=== PATIENT | male | born 1940 | race Caucasian/White ===

== ENCOUNTER 2017-02-05 08:38 | Inpatient (IN) | payer MEDICARE, SELFPAY ==
[2017-02-05] MEDS ORDERED: PIPERACILLIN-TAZOBACTAM 3.375 GM in DEXTROSE/WATER 1 50ML.BAG IVPB STA (09:05)
[2017-02-05 09:06] LABS: Basophils # (A) 0.1 k/uL (0-0.2); Basophils % (A) 1 %; CH 32.1; CHCM 35.2; Eosinophils # (A) 0.1 k/uL (0-0.7); Eosinophils % (A) 1 %; HCT 47.8 % (39.0-53.0); HDW 2.75; HGB 16.3 gm/dL (13.0-17.5); Luc # (Auto) 0.07; Luc % (Auto) 1; Lymphocytes # (A) 0.5 k/uL (1.0-4.8); Lymphocytes % (A) 5 %; MCH 31.1 pg (25.0-35.0); MCHC 34.1 g/dL (31.0-37.0); MCV 91.4 fL (80.0-100.0); Mean Platelet Volume 8.4; Monocytes # (A) 0.3 k/uL (0-1.0); Monocytes % (A) 3 %; Neutrophils # (A) 9.5 k/uL (1.3-7.7); Neutrophils % (A) 90 %; RBC 5.23 m/uL (4.30-5.90); WBC 10.6 k/uL (3.8-10.6); WBC (Perox) 10.69
[2017-02-05] MEDS ORDERED: SODIUM CHLORIDE 0.9% 1,000 ML IV ONE (09:06)
[2017-02-05] MEDS: ACETAMINOPHEN TAB 500 MG TAB PO STA ×2 (09:14→09:16)
[2017-02-05 09:19] LABS: ALT 26 U/L (21-72); AST 32 U/L (17-59); Alkaline Phosphatase 117 U/L (38-126); Anion Gap 18 mmol/L; Blood Urea Nitrogen 18 mg/dL (9-20); Calcium 9.2 mg/dL (8.4-10.2); Carbon Dioxide 19 mmol/L (22-30); Chloride 99 mmol/L (98-107); Glucose 300 mg/dL (74-99); INR 2.6 (<1.1); Non-African American GFR(MDRD) >60 (>60 ml/min/1.73 sqM); Potassium 3.9 mmol/L (3.5-5.1); Prothrombin Time 25.1 sec (9.0-12.0); Sodium 136 mmol/L (137-145); Total Bilirubin 1.3 mg/dL (0.2-1.3); Total Protein 7.3 g/dL (6.3-8.2)
[2017-02-05 09:20] LABS: Partial Thromboplastin Time 28.5 sec (22.0-30.0)
--- NOTE | 2017-02-05 09:38 | ED ---
Fever HPI - General Chief Complaint: Fever Stated Complaint: Fever Time Seen by Provider: 02/05/17 08:44 Source: patient, EMS Mode of arrival: EMS Limitations: no limitations - History of Present Illness Initial Comments: 76 years old male presented with a fever and shakes to bed feeling vertigo last night he woke up this morning and he couldn't stop shaking his whole body was shaking and he had a fever. His Family Member Had the Same Sort of Symptoms. Days Ago Her Cough Relief or and Shakes. He Denies Any Headache No Neck Stiffness No Chest Pain He Has Been Coughing No Significant Amount of Sputum No Abdominal Pain No Frequency Urgency Dysuria She Does Speak Quite a Bit No Symptoms of TIA or CVA - Related Data Home Medications Medication Instructions Recorded Confirmed Atenolol [Tenormin] 50 mg PO DAILY 02/05/17 02/05/17 Lisinopril [Zestril] 5 mg PO HS 02/05/17 02/05/17 Lisinopril-Hctz 20-12.5 mg 1 tab PO DAILY 02/05/17 02/05/17 [Zestoretic 20-12.5] Warfarin Sodium [Coumadin] 5 mg PO HS 02/05/17 02/05/17 metFORMIN HCL 1,000 mg PO BID 02/05/17 02/05/17 Previous Rx's Medication Instructions Recorded Ciprofloxacin HCl [Cipro] 500 mg PO Q12HR #22 tablet 02/08/17 glipiZIDE [Glucotrol] 10 mg PO AC-BID #60 tablet 02/08/17 Allergies Allergy/AdvReac Type Severity Reaction Status Date / Time No Known Allergies Allergy Verified 02/05/17 10:10 Review of Systems ROS Statement: Those systems with pertinent positive or pertinent negative responses have been documented in the HPI. ROS Other: All systems not noted in ROS Statement are negative. Past Medical History Past Medical History: Atrial Fibrillation, Diabetes Mellitus, Hypertension History of Any Multi-Drug Resistant Organisms: None Reported Past Surgical History: Appendectomy Past Psychological History: No Psychological Hx Reported Smoking Status: Never smoker Past Alcohol Use History: None Reported Past Drug Use History: None Reported - Past Family History Mother Family Medical History: Cancer Additional Family Medical History / Comment(s): Mother had metastatic cancer. She at the age of 57yrs. Father Family Medical History: Myocardial Infarction ([place]) Additional Family Medical History / Comment(s): Father at the age of 63yrs of a [place]. General Exam - General Exam Comments Initial Comments: General: The patient is awake and alert, in no distress, and does not appear acutely ill. His temp is no 101.5 Skin: Skin is warm and dry and no rashes or lesions are noted. Eye: Pupils are equal, round and reactive to light, extra-ocular movements are intact; there is normal conjunctiva bilaterally. Ears, nose, mouth and throat: There are moist mucous membranes and no oral lesions. Neck: The neck is supple, there is no tenderness no signs of meningeal irritation Cardiovascular: There is a regular rate and rhythm. No murmur, rub or gallop is appreciated. Respiratory: To auscultation bilateral, no wheezing no rhonchi no distress respiratory marie noticed Gastrointestinal: Soft, non-distended, non-tender abdomen without masses or organomegaly noted. There is no rebound or guarding present. Bowel sounds are unremarkable. Back: There is no tenderness to palpation in the midline. There is no obvious deformity. Musculoskeletal: Normal ROM, no tenderness, There is no pedal edema. There is no calf tenderness or swelling. No cords were appreciated. Neurological: CN II-XII intact, Cranial nerves III through XII are intact. There are no obvious motor or sensory deficits. Coordination appears grossly intact. Speech is normal. Psychiatric: Cooperative, appropriate mood & affect, normal judgment. Limitations: no limitations Course Vital Signs 02/05/17 02/05/17 02/05/17 08:43 08:52 09:05 Temperature 101.5 F H 101.5 F H Pulse Rate 95 Pulse Rate [ 95 96 Pulse Oximetery ] Respiratory 18 18 18 Rate Blood Pressure 154/87 Blood Pressure 154/87 150/77 [Right Arm] O2 Sat by Pulse 92 L 92 L 93 L Oximetry 02/05/17 02/05/17 02/05/17 09:20 09:30 09:45 Temperature 98.5 F Pulse Rate 90 88 Pulse Rate [ 90 Pulse Oximetery ] Respiratory 18 18 18 Rate Blood Pressure 131/64 141/64 Blood Pressure 135/67 [Right Arm] O2 Sat by Pulse 94 L 95 95 Oximetry 02/05/17 02/05/17 02/05/17 10:00 10:15 10:30 Temperature 98.5 F 98.6 F 99.8 F H Pulse Rate 87 84 88 Pulse Rate [ Pulse Oximetery ] Respiratory 18 18 18 Rate Blood Pressure 129/58 136/66 134/63 Blood Pressure [Right Arm] O2 Sat by Pulse 95 96 95 Oximetry 02/05/17 02/05/17 02/05/17 11:00 11:15 11:30 Temperature 99.2 F 100.5 F H 100.6 F H Pulse Rate 84 80 71 Pulse Rate [ Pulse Oximetery ] Respiratory 20 18 18 Rate Blood Pressure 137/68 130/80 128/62 Blood Pressure [Right Arm] O2 Sat by Pulse 95 95 95 Oximetry 02/05/17 02/05/17 02/05/17 11:45 12:00 12:15 Temperature 100.5 F H 99 F 99 F Pulse Rate 71 86 84 Pulse Rate [ 82 Pulse Oximetery ] Respiratory 18 18 18 Rate Blood Pressure 129/64 142/58 128/79 Blood Pressure 133/70 [Right Arm] O2 Sat by Pulse 95 95 95 Oximetry 02/05/17 02/05/17 02/05/17 12:30 12:45 13:04 Temperature 99 F 99 F 99.1 F Pulse Rate 85 82 72 Pulse Rate [ Pulse Oximetery ] Respiratory 18 18 18 Rate Blood Pressure 139/67 144/56 141/64 Blood Pressure [Right Arm] O2 Sat by Pulse 96 96 96 Oximetry 02/05/17 13:15 Temperature 97.8 F Pulse Rate Pulse Rate [ 73 Pulse Oximetery ] Respiratory 16 Rate Blood Pressure Blood Pressure 121/70 [Right Arm] O2 Sat by Pulse 95 Oximetry Him EKG is atrial fibrillation, ventricular rate is 99 CT interval, QRS duration is 1 or 2 QT/QTC 362/464 EKG was compared with the old EKG EKG noticed some ST depression in lead 1 and also there is a hint of firm ST elevation in lead 3 notice S2 depression in aVL as well noticed some ST depression in lead V4 V5 and V6 - Reevaluation(s) Reevaluation #2: 02/05/17 10:09 Patient's lactate is 6.2 had a fever and right wrist after 1.5 L of fluid he looks better here it is some consistent with a cystitis and probably early urosepsis patient was given antibiotics right away when now will be seen him clinically he looks better and secondary to his urosepsis his sugar was high and bicarb is bit low with the fluids and antibiotics hopefully that also being corrected, spoke with the Dr. Hemphill he is agreeable to resume his care as inpatient and will allow per minute selective at this point Medical Decision Making - Lab Data Result diagrams: 02/08/17 05:47 02/08/17 05:47 Lab Results 02/05/17 02/05/17 02/05/17 Range/Units 08:50 08:50 08:50 WBC 10.6 (3.8-10.6) k/uL RBC 5.23 (4.30-5.90) m/uL Hgb 16.3 (13.0-17.5) gm/dL Hct 47.8 (39.0-53.0) % MCV 91.4 (80.0-100.0) fL MCH 31.1 (25.0-35.0) pg MCHC 34.1 (31.0-37.0) g/dL RDW 14.0 (11.5-15.5) % Plt Count 168 (150-450) k/uL Neutrophils % 90 % Lymphocytes % 5 % Monocytes % 3 % Eosinophils % 1 % Basophils % 1 % Neutrophils # 9.5 H (1.3-7.7) k/uL Lymphocytes # 0.5 L (1.0-4.8) k/uL Monocytes # 0.3 (0-1.0) k/uL Eosinophils # 0.1 (0-0.7) k/uL Basophils # 0.1 (0-0.2) k/uL PT (9.0-12.0) sec INR (<1.1) APTT (22.0-30.0) sec Sodium 136 L (137-145) mmol/L Potassium 3.9 (3.5-5.1) mmol/L Chloride 99 (98-107) mmol/L Carbon Dioxide 19 L (22-30) mmol/L Anion Gap 18 mmol/L BUN 18 (9-20) mg/dL Creatinine 0.70 (0.66-1.25) mg/dL Est GFR (MDRD) Af Amer >60 (>60 ml/min/1.73 sqM) Est GFR (MDRD) Non-Af >60 (>60 ml/min/1.73 sqM) Glucose 300 H (74-99) mg/dL Estimated Ave Glu mg/dL mg/dL Hemoglobin A1c (4.2-6.1) % Plasma Lactic Acid Giovanny 6.2 H* (0.7-2.0) mmol/L Calcium 9.2 (8.4-10.2) mg/dL Total Bilirubin 1.3 (0.2-1.3) mg/dL AST 32 (17-59) U/L ALT 26 (21-72) U/L Alkaline Phosphatase 117 (38-126) U/L Troponin I (0.000-0.034) ng/mL Total Protein 7.3 (6.3-8.2) g/dL Albumin 4.0 (3.5-5.0) g/dL Urine Color Urine Appearance (Clear) Urine pH (5.0-8.0) Ur Specific Sullivan (1.001-1.035) Urine Protein (Negative) Urine Glucose (UA) (Negative) Urine Ketones (Negative) Urine Blood (Negative) Urine Nitrite (Negative) Urine Bilirubin (Negative) Urine Urobilinogen (<2.0) mg/dL Ur Leukocyte Esterase (Negative) Urine RBC (0-5) /hpf Urine WBC (0-5) /hpf Urine WBC Clumps (None) /hpf Ur Squamous Epith Cells (0-4) /hpf Urine Bacteria (None) /hpf Urine Mucus (None) /hpf Acetone, Qual (Negative) Influenza Type A RNA (Not Detectd) Influenza Type B (PCR) (Not Detectd) 02/05/17 02/05/17 02/05/17 Range/Units 08:50 08:50 08:50 WBC (3.8-10.6) k/uL RBC (4.30-5.90) m/uL Hgb (13.0-17.5) gm/dL Hct (39.0-53.0) % MCV (80.0-100.0) fL MCH (25.0-35.0) pg MCHC (31.0-37.0) g/dL RDW (11.5-15.5) % Plt Count (150-450) k/uL Neutrophils % % Lymphocytes % % Monocytes % % Eosinophils % % Basophils % % Neutrophils # (1.3-7.7) k/uL Lymphocytes # (1.0-4.8) k/uL Monocytes # (0-1.0) k/uL Eosinophils # (0-0.7) k/uL Basophils # (0-0.2) k/uL PT 25.1 H (9.0-12.0) sec INR 2.6 (<1.1) APTT 28.5 (22.0-30.0) sec Sodium (137-145) mmol/L Potassium (3.5-5.1) mmol/L Chloride (98-107) mmol/L Carbon Dioxide (22-30) mmol/L Anion Gap mmol/L BUN (9-20) mg/dL Creatinine (0.66-1.25) mg/dL Est GFR (MDRD) Af Amer (>60 ml/min/1.73 sqM) Est GFR (MDRD) Non-Af (>60 ml/min/1.73 sqM) Glucose (74-99) mg/dL Estimated Ave Glu mg/dL 192 mg/dL Hemoglobin A1c 8.3 H (4.2-6.1) % Plasma Lactic Acid Giovanny (0.7-2.0) mmol/L Calcium (8.4-10.2) mg/dL Total Bilirubin (0.2-1.3) mg/dL AST (17-59) U/L ALT (21-72) U/L Alkaline Phosphatase (38-126) U/L Troponin I (0.000-0.034) ng/mL Total Protein (6.3-8.2) g/dL Albumin (3.5-5.0) g/dL Urine Color Urine Appearance (Clear) Urine pH (5.0-8.0) Ur Specific Sullivan (1.001-1.035) Urine Protein (Negative) Urine Glucose (UA) (Negative) Urine Ketones (Negative) Urine Blood (Negative) Urine Nitrite (Negative) Urine Bilirubin (Negative) Urine Urobilinogen (<2.0) mg/dL Ur Leukocyte Esterase (Negative) Urine RBC (0-5) /hpf Urine WBC (0-5) /hpf Urine WBC Clumps (None) /hpf Ur Squamous Epith Cells (0-4) /hpf Urine Bacteria (None) /hpf Urine Mucus (None) /hpf Acetone, Qual Negative (Negative) Influenza Type A RNA (Not Detectd) Influenza Type B (PCR) (Not Detectd) 02/05/17 02/05/17 02/05/17 Range/Units 09:15 09:15 09:16 WBC (3.8-10.6) k/uL RBC (4.30-5.90) m/uL Hgb (13.0-17.5) gm/dL Hct (39.0-53.0) % MCV (80.0-100.0) fL MCH (25.0-35.0) pg MCHC (31.0-37.0) g/dL RDW (11.5-15.5) % Plt Count (150-450) k/uL Neutrophils % % Lymphocytes % % Monocytes % % Eosinophils % % Basophils % % Neutrophils # (1.3-7.7) k/uL Lymphocytes # (1.0-4.8) k/uL Monocytes # (0-1.0) k/uL Eosinophils # (0-0.7) k/uL Basophils # (0-0.2) k/uL PT (9.0-12.0) sec INR (<1.1) APTT (22.0-30.0) sec Sodium (137-145) mmol/L Potassium (3.5-5.1) mmol/L Chloride (98-107) mmol/L Carbon Dioxide (22-30) mmol/L Anion Gap mmol/L BUN (9-20) mg/dL Creatinine (0.66-1.25) mg/dL Est GFR (MDRD) Af Amer (>60 ml/min/1.73 sqM) Est GFR (MDRD) Non-Af (>60 ml/min/1.73 sqM) Glucose (74-99) mg/dL Estimated Ave Glu mg/dL mg/dL Hemoglobin A1c (4.2-6.1) % Plasma Lactic Acid Giovanny (0.7-2.0) mmol/L Calcium (8.4-10.2) mg/dL Total Bilirubin (0.2-1.3) mg/dL AST (17-59) U/L ALT (21-72) U/L Alkaline Phosphatase (38-126) U/L Troponin I 0.031 (0.000-0.034) ng/mL Total Protein (6.3-8.2) g/dL Albumin (3.5-5.0) g/dL Urine Color Yellow Urine Appearance Turbid (Clear) Urine pH 5.5 (5.0-8.0) Ur Specific Sullivan 1.015 (1.001-1.035) Urine Protein 2+ H (Negative) Urine Glucose (UA) 4+ H (Negative) Urine Ketones 1+ H (Negative) Urine Blood Moderate H (Negative) Urine Nitrite Positive (Negative) Urine Bilirubin Negative (Negative) Urine Urobilinogen <2.0 (<2.0) mg/dL Ur Leukocyte Esterase Large H (Negative) Urine RBC 68 H (0-5) /hpf Urine WBC >182 H (0-5) /hpf Urine WBC Clumps Moderate H (None) /hpf Ur Squamous Epith Cells 2 (0-4) /hpf Urine Bacteria Many H (None) /hpf Urine Mucus Occasional H (None) /hpf Acetone, Qual (Negative) Influenza Type A RNA Not Detected (Not Detectd) Influenza Type B (PCR) Not Detected (Not Detectd) Critical Care Time Total Critical Care Time: 45 Critical Care Time: Patient's labs are reviewed CBC is normal INR flu a and flu BR unremarkable chest x-ray shows some cardiomegaly his blood sugar is 300 and his bicarb is 19 they mean he has a metabolic acidosis and has a lactate is 6.2 considering that he was started on now Zosyn 3.375 g IV and he was also resuscitated with normal saline also noticed some EKG changes and he has history of atrial fibrillation considering all the CABG he would need admission get hold of Dr. Hemphill O Dr. Brooks site and a considering his lactate he will need to go to a selective at least for ICU Disposition Clinical Impression: Fever, History of atrial fibrillation, Hyperglycemia, Metabolic acidosis, Cystitis Disposition: ADMITTED IP TO THIS HOSP Condition: Stable
--- NOTE | 2017-02-05 09:38 | XR ---
EXAMINATION TYPE: XR chest 2V DATE OF EXAM: 02/05/2017 9:35 AM HISTORY: Pain. REFERENCE: Previous study dated 07/27/2010. FINDINGS: The lungs are overinflated. The heart is mildly enlarged. There is a calcified granuloma in the right midlung. There are senescent changes throughout the lungs. IMPRESSION: 1. COPD. 2. CARDIOMEGALY. 3. 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
[2017-02-05 09:39] LABS: Appearance,Urine Turbid (Clear); Bacteria,Urine Many /hpf; Bilirubin,Urine Negative (Negative); Glucose,Urine (UA) 4+ (Negative); Ketones,Urine 1+ (Negative); Leukocyte Esterase,Urine Large (Negative); Mucus,Urine Occasional /hpf; Nitrite,Urine Positive (Negative); PH, Urine 5.5 (5.0-8.0); Particle Count 62762; Protein,Urine 2+ (Negative); RBC,Urine 68 /hpf (0-5); Specific Gravity,Urine 1.015 (1.001-1.035); Squamous Epithelial Cell,Urine 2 /hpf (0-4); UA Billing (MACRO vs. MICRO) MICRO; Urobilinogen,Urine <2.0 mg/dL (<2.0); WBC,Urine >182 /hpf (0-5)
[2017-02-05] MEDS ORDERED: INSULIN REGULAR 100 UNIT/ML VIAL SQ ONE (09:40)
[2017-02-05] MEDS ORDERED: SODIUM CHLORIDE 0.9% 1,000 ML IV STA (09:42)
[2017-02-05] MEDS ORDERED: NALOXONE 0.4 MG/ML 1 ML VIAL IV PRN (10:10)
[2017-02-05] MEDS ORDERED: ACETAMINOPHEN TAB 325 MG TAB PO PRN (10:10)
[2017-02-05] MEDS: SODIUM CHLORIDE 0.9% 1,000 ML IV SCH ×2 (10:57→21:15)
[2017-02-05 11:08] LABS: Glucose,Whole Blood 272 mg/dL (75-99)
[2017-02-05] MEDS ORDERED: IBUPROFEN 600 MG TAB PO STA (11:33)
[2017-02-05] MEDS: INSULIN LISPRO (humaLOG) 300 UNIT/3 ML VIAL SQ SCH ×3 (13:47→21:18)
--- NOTE | 2017-02-05 13:53 | P.HPIM ---
History of Present Illness H&P Date: 02/05/17 Chief Complaint: Burning with urination and fever This is a 76-year-old male with a known history of atrial fibrillation, diabetes mellitus and hypertension. Patient presents to the emergency room with complaints of chills and shakes. He had noted to have burning with urination that started through the night and into the morning. He had hematuria and urinary frequency. Patient reports about 6 weeks ago he also was treated outpatient for urinary tract infection. Patient had a temp of 101.5 on admission did receive IV fluids and started on IV Zosyn in the emergency room. Lactic acid level was elevated at 6.2 white count 10.6. Patient is being treated for UTI with sepsis. Blood cultures are pending. He also had elevated blood sugar of 300. I did receive insulin in the emergency room. We'll continue to monitor sliding scale has been ordered. Also acetone level. Patient denies any back pain, chest pain or shortness of breath, nausea or vomiting or bowel movement changes. Review of Systems Please refer to HPI otherwise unremarkable Past Medical History Past Medical History: Atrial Fibrillation, Heart Failure, Diabetes Mellitus, Hypertension Additional Past Medical History / Comment(s): NIDDM type II, arthritis L knee and hands. Patient did have a previous infection in the left knee did require treatment with IV antibiotics in 2007 after orthopedic procedure History of Any Multi-Drug Resistant Organisms: None Reported Past Surgical History: Appendectomy, Orthopedic Surgery Additional Past Surgical History / Comment(s): 2009 RUSSEL/cardioversion, colonoscopy, L knee arthroscopy. Past Anesthesia/Blood Transfusion Reactions: No Reported Reaction Past Psychological History: No Psychological Hx Reported Additional Psychological History / Comment(s): Pt resides with his girlfriend. He uses no assistive device. He drives. Smoking Status: Never smoker Past Alcohol Use History: None Reported Additional Past Alcohol Use History / Comment(s): Pt chewed tobacco for about 7- 8 yrs. He quit in 1989 Past Drug Use History: None Reported - Past Family History Mother Family Medical History: Cancer Additional Family Medical History / Comment(s): Mother had metastatic cancer. She at the age of 57yrs. Father Family Medical History: Myocardial Infarction ([place]) Additional Family Medical History / Comment(s): Father at the age of 63yrs of a [place]. Medications and Allergies Home Medications Medication Instructions Recorded Confirmed Type Atenolol [Tenormin] 50 mg PO DAILY 02/05/17 02/05/17 History Lisinopril [Zestril] 5 mg PO HS 02/05/17 02/05/17 History Lisinopril-Hctz 20-12.5 mg 1 tab PO DAILY 02/05/17 02/05/17 History [Zestoretic 20-12.5] Warfarin Sodium [Coumadin] 5 mg PO HS 02/05/17 02/05/17 History glipiZIDE [Glucotrol] 5 mg PO AC-BRKFST 02/05/17 02/05/17 History glipiZIDE [Glucotrol] 10 mg PO AC-SUPPER 02/05/17 02/05/17 History metFORMIN HCL 1,000 mg PO BID 02/05/17 02/05/17 History Allergies Allergy/AdvReac Type Severity Reaction Status Date / Time No Known Allergies Allergy Verified 02/05/17 10:10 Physical Exam Vitals: Vital Signs Temp Pulse Pulse Resp BP BP Pulse Ox 02/05/17 13:04 99.1 F 72 18 141/64 96 02/05/17 12:45 99 F 82 18 144/56 96 02/05/17 12:30 99 F 85 18 139/67 96 02/05/17 12:15 99 F 84 18 128/79 95 02/05/17 12:00 99 F 86 82 18 142/58 133/70 95 02/05/17 11:45 100.5 F H 71 18 129/64 95 02/05/17 11:30 100.6 F H 71 18 128/62 95 02/05/17 11:15 100.5 F H 80 18 130/80 95 02/05/17 11:00 99.2 F 84 20 137/68 95 02/05/17 10:30 99.8 F H 88 18 134/63 95 02/05/17 10:15 98.6 F 84 18 136/66 96 Head normocephalic Neck supple Lungs clear to auscultation bilaterally no wheezing or crackles Heart irregular A. fib on monitor Abdomen is soft nontender nondistended positive bowel sounds no hepatosplenomegaly. No CVA tenderness Extremities no edema Neuro alert and orientated to 3 Results CBC & Chem 7: 02/05/17 08:50 02/05/17 08:50 Labs: Abnormal Lab Results - Last 24 Hours (Table) 02/05/17 02/05/17 Range/Units 11:07 12:10 POC Glucose (mg/dL) 272 H (75-99) mg/dL Plasma Lactic Acid Giovanny 4.6 H* (0.7-2.0) mmol/L Thrombosis Risk Factor Assmnt - Choose All That Apply Any of the Below Risk Factors Present?: Yes Each Factor Represents 1 point: Obesity (BMI >25) Other Risk Factors: Yes Each Risk Factor Represents 3 Points: Age 75 years or older Other congenital or acquired thrombophilia - If yes, enter type in comment: No Thrombosis Risk Factor Assessment Total Risk Factor Score: 4 Thrombosis Risk Factor Assessment Level: Moderate Risk Assessment and Plan Plan: 1. UTI with sepsis present on admission: Patient started on IV Zosyn. Urine culture and blood culture pending. Had a fever of 101.5 and a lactic acid level of 6.2 on admission. Continue with IV fluid hydration. Consult infectious disease 2. Diabetes mellitus type 2 with hyperglycemia: Blood sugar 300 on admission. CO2 level 19. Positive ketones in the urine. We'll check acetone level. Add sliding scale coverage. Discontinue metformin. Continue with glipizide. Check hemoglobin A1c 3. Metabolic acidosis: CO2 of 19. Repeat labs in a.m. Continue treatment of sepsis. 4. History of chronic atrial fibrillation: EKG shows atrial fibrillation with controlled rate and nonspecific S and T-wave abnormality. Continue atenolol and Coumadin. INR therapeutic at 2.6. Cardiology consulted 5. Essential hypertension: Continue lisinopril, hydrochlorothiazide and atenolol GI prophylaxis Protonix and DVT prophylaxis maintained on Coumadin with therapeutic INR Time with Patient: Greater than 30 (Greater than 50% of the total time spent in counseling and coordination of care.I performed an examination of the patient and discussed their management with the physician Blood Donor Recruiter. I have reviewed the Physician Blood Donor Recruiter's notes and agree with the documented findings and plan of care)
[2017-02-05 14:07] LABS: Hemoglobin A1C 8.3 % (4.2-6.1)
[2017-02-05 14:13] LABS: Glucose,Whole Blood 298 mg/dL (75-99)
[2017-02-05] MEDS: PIPERACILLIN-TAZOBACTAM 3.375 GM in DEXTROSE/WATER 1 50ML.BAG IVPB SCH ×2 (15:54→23:00)
[2017-02-05 16:25] LABS: Glucose,Whole Blood 223 mg/dL (75-99)
[2017-02-05] MEDS ORDERED: INSULIN LISPRO (humaLOG) 300 UNIT/3 ML VIAL SQ SCH (17:30)
[2017-02-05] MEDS: glipiZIDE 10 MG TAB PO SCH (17:31)
[2017-02-05] MEDS ORDERED: NON-FORMULARY DRUG (Metformin Hcl [Metformin Hcl] 1,000 MG) PO SCH (21:00)
[2017-02-05 21:01] LABS: Glucose,Whole Blood 202 mg/dL (75-99)
[2017-02-05] MEDS: LISINOPRIL 5 MG TAB PO SCH (21:19)
[2017-02-05] MEDS: WARFARIN 5 MG TAB PO SCH (21:19)
[2017-02-06 06:13] LABS: Basophils # (A) 0.1 k/uL (0-0.2); Basophils % (A) 1 %; CH 32.2; CHCM 35.1; Eosinophils % (A) 0 %; HCT 40.7 % (39.0-53.0); HDW 2.72; Luc # (Auto) 0.29; Luc % (Auto) 5; Lymphocytes % (A) 15 %; MCH 31.7 pg (25.0-35.0); MCHC 34.4 g/dL (31.0-37.0); MCV 92.2 fL (80.0-100.0); Monocytes # (A) 0.4 k/uL (0-1.0); Monocytes % (A) 6 %; Neutrophils # (A) 4.8 k/uL (1.3-7.7); Neutrophils % (A) 74 %; RBC 4.41 m/uL (4.30-5.90); RDW 14.1 % (11.5-15.5); WBC 6.4 k/uL (3.8-10.6)
[2017-02-06] MEDS: SODIUM CHLORIDE 0.9% 1,000 ML IV SCH ×2 (06:13→16:22)
[2017-02-06 06:17] LABS: INR 1.9 (<1.1); Prothrombin Time 18.3 sec (9.0-12.0)
[2017-02-06 06:23] LABS: Glucose,Whole Blood 236 mg/dL (75-99)
[2017-02-06 06:31] LABS: ALT 39 U/L (21-72); AST 41 U/L (17-59); Alkaline Phosphatase 58 U/L (38-126); Anion Gap 7 mmol/L; Blood Urea Nitrogen 15 mg/dL (9-20); Calcium 8.5 mg/dL (8.4-10.2); Carbon Dioxide 26 mmol/L (22-30); Chloride 100 mmol/L (98-107); Glucose 237 mg/dL (74-99); Non-African American GFR(MDRD) >60 (>60 ml/min/1.73 sqM); Potassium 3.5 mmol/L (3.5-5.1); Sodium 133 mmol/L (137-145); Total Bilirubin 1.6 mg/dL (0.2-1.3); Total Protein 5.6 g/dL (6.3-8.2)
[2017-02-06] MEDS: LISINOPRIL-HCTZ 20-12.5 MG 1 EACH TAB PO SCH (08:26)
[2017-02-06] MEDS: ATENOLOL 50 MG TAB PO SCH (08:26)
[2017-02-06] MEDS: PIPERACILLIN-TAZOBACTAM 3.375 GM in DEXTROSE/WATER 1 50ML.BAG IVPB SCH ×3 (08:26→23:20)
[2017-02-06 08:48] LABS: Glucose,Whole Blood 245 mg/dL (75-99)
--- NOTE | 2017-02-06 08:49 | US ---
EXAMINATION TYPE: US abd limited kidneys/bladder DATE OF EXAM: 02/06/2017 8:01 AM COMPARISON: NONE CLINICAL HISTORY: recurrent UTI. Patient states no pain or discomfort. Fever yesterday. EXAM MEASUREMENTS: Liver Length: 20.7 cm Gallbladder Wall: 0.2 cm CHD: 0.4 cm Right Kidney: 12.1 x 6.5 x 7.0 cm Left Kidney: 13.7 x 6.0 x 6.5 cm Pancreas: Obscured by bowel gas Liver: Increased attenuation, decreased visualization of vessels suggestive of fatty infiltrate. En larged. Gallbladder: wnl CBD: wnl Right Kidney: wnl Left Kidney: Enlarged Bladder: Bladder moderately distended, wall appears thickened = 7.8 mm Right Jet Seen IMPRESSION: 1. Bladder wall appears to be thickened correlate for cystitis.. 2. Left kidney is prominent in size with no evidence of overt hydronephrosis or nephrolithiasis 3. Increased attenuation of liver is nonspecific could be seen with fatty infiltration, hepatocellula r disease including hepatitis. Correlate clinically.
[2017-02-06] MEDS ORDERED: PANTOPRAZOLE 40 MG/10 ML VIAL IV SCH (09:00)
[2017-02-06] MEDS: INSULIN LISPRO (humaLOG) 300 UNIT/3 ML VIAL SQ SCH ×4 (09:32→21:29)
[2017-02-06] MEDS: glipiZIDE 5 MG TAB PO SCH (09:33)
--- NOTE | 2017-02-06 09:39 | CONS ---
DATE OF CONSULTATION: DATE OF SERVICE: 02/05/2017 REASON FOR CONSULTATION: UTI with sepsis. HISTORY OF PRESENT ILLNESS: The patient is a 76-year-old male recently treated as an outpatient by his PCP for an episode of urinary tract infection with amoxicillin. Patient said that his symptoms improved some, but seemed to have recurrence of his burning of urine though did not have significant UA on admission. The patient was doing well yesterday, however, woke up this morning with severe rigors and chills that he said he could not get warm. The patient denies having any URI symptoms. Denies any runny nose or sore throat. Did have some mild cough, but no significant sputum production or chest pain and no abdominal pain and no diarrhea. The patient subsequently has been evaluated by the ER physician. The patient did have a fever of 101.5 degrees Fahrenheit on arrival to the ER. The patient did have a chest x-ray that was reported negative for any pneumonia. His urine was positive with elevated lactic acid of 4.6. Patient did have blood cultures obtained. He was started Zosyn. I was asked to see the patient for further recommendations regarding antibiotic therapy. REVIEW OF SYSTEMS: CONSTITUTIONAL: Positive for weakness and fever. EYES: No complaint. ENT: No complaint. RESPIRATORY: As per HPI. CARDIOVASCULAR: No complaint. GENITOURINARY: As per HPI. GASTROINTESTINAL: No complaint. MUSCULOSKELETAL: No complaint. INTEGUMENTARY: No complaint. PSYCHOLOGIC: No complaint. ENDOCRINE: No complaint. NEUROLOGIC: No complaint. PAST MEDICAL HISTORY: Hypertension, diabetes mellitus, heart failure, atrial fibrillation, osteoarthritis. PAST SURGICAL HISTORY: Significant for appendectomy, RUSSEL, cardioversion, colonoscopy, left knee arthroscopy. SOCIAL HISTORY: No history of smoking, drinking or drug use. FAMILY HISTORY: Mother with history of metastatic cancer. Father history of [place]. ALLERGIES: No known drug allergies. Medications currently include the patient is on Tylenol, Tenormin, Glucotrol, glipizide, lisinopril, Humalog, Zestril, Narcan, Protonix, piperacillin tazobactam and Coumadin. On examination, blood pressure is 133/80 with a pulse of 110, temperature 98.6. He is 97% on room air. General description is an elderly male up in the bed in no distress. No tachypnea or accessory muscle of respiration use. HEENT examination shows no pallor or scleral icterus. Oral mucous membranes dry. NECK: Trachea central. There is no thyromegaly. LUNGS: Unlabored breathing. Clear to auscultation anteriorly. No wheeze or crackle. HEART: S1, S2. Regular rate and rhythm. ABDOMEN: Soft, no tenderness. No guarding or rigidity. EXTREMITIES: No edema of feet. SKIN EXAMINATION: No rash or mass palpable. NEUROLOGICAL: The patient is awake, alert, oriented x3. Mood and affect normal. LABS: Hemoglobin 16.3, white count 10.6. BUN of 18 with a creatinine 0.70. Urine has been positive more than 182 WBC, moderate bacteria. Influenza A and B serology has been negative. DIAGNOSTIC IMPRESSION AND PLAN: Patient with severe sepsis in a patient who did have evidence of a fever of 101.5 and evidence of tachycardia, source is urinary in a patient who has been treated as an outpatient with oral amoxicillin, finishing his oral amoxicillin therapy with elevated lactic acid, will need to cover for the resistant gram-negative in view of his oral antibiotic therapy. PLAN: 1. Will obtain ultrasound of his kidneys to make sure no evidence of any structural abnormality or an abscess. 2. Zosyn 3.375 grams IV q.8 hours. 3. Aggressive IV fluid. 4. Will follow up on the clinical condition and cultures to further adjust the medication if needed. Thank you for this consultation. We will follow this patient along with you. CANDI
[2017-02-06 11:41] LABS: Glucose,Whole Blood 289 mg/dL (75-99)
--- NOTE | 2017-02-06 13:46 | P.PN ---
Subjective Principal diagnosis: sepsis with urinary tract infection patient reported improvement in his symptoms since yesterday that is less burning was urination, his fever had subsided Objective - Vital Signs Vital signs: Vital Signs Temp 97.3 F L 02/06/17 11:15 Pulse 64 02/06/17 11:59 Resp 18 02/06/17 11:59 BP 113/65 02/06/17 11:15 Pulse Ox 94 L 02/06/17 11:15 Intake & Output 02/05/17 02/06/17 02/06/17 18:59 06:59 18:59 Intake Total 450 990 Output Total 200 700 Balance 250 290 Weight 110.1 kg Intake: IV 400 400 Sodium Chloride 0.9% 1, 400 400 000 ml @ 100 mls/hr IV . Q10H GUY Rx#:[id number] Intake, IV Titration 50 50 Amount Piperacillin-Tazobactam 3 50 50 .375 gm In Dextrose/Water 1 50ml.bag @ 12.5 mls/hr IVPB Q8HR GUY Rx#: [id number] Oral 540 Output: Urine 200 700 Other: Voiding Method Urinal Urinal # Voids 1 - Exam in general patient is alert and oriented 3 HEENT without any acute abnormality Neck is supple no JVD no goiter no lymphadenopathy Chest exam reveals a few scattered crackles no wheezing Cardiac exam reveals irregular heart sounds no murmurs abdomen is soft nontender no organomegaly Extremity exam reveals no edema no cyanosis or clubbing - Labs CBC & Chem 7: 02/06/17 05:22 02/06/17 05:22 Labs: Abnormal Lab Results - Last 24 Hours (Table) 02/05/17 02/05/17 02/05/17 Range/Units 13:37 16:23 18:30 Plt Count (150-450) k/uL PT (9.0-12.0) sec Sodium (137-145) mmol/L Glucose (74-99) mg/dL POC Glucose (mg/dL) 298 H 223 H (75-99) mg/dL Plasma Lactic Acid Giovanny 3.0 H* (0.7-2.0) mmol/L Total Bilirubin (0.2-1.3) mg/dL Total Protein (6.3-8.2) g/dL Albumin (3.5-5.0) g/dL 02/05/17 02/06/1702/06/17 Range/Units 21:00 05:22 05:22 Plt Count 100 L (150-450) k/uL PT 18.3 H (9.0-12.0) sec Sodium (137-145) mmol/L Glucose (74-99) mg/dL POC Glucose (mg/dL) 202 H (75-99) mg/dL Plasma Lactic Acid Giovanny (0.7-2.0) mmol/L Total Bilirubin (0.2-1.3) mg/dL Total Protein (6.3-8.2) g/dL Albumin (3.5-5.0) g/dL 02/06/17 02/06/17 02/06/17 Range/Units 05:22 06:22 08:44 Plt Count (150-450) k/uL PT (9.0-12.0) sec Sodium 133 L (137-145) mmol/L Glucose 237 H (74-99) mg/dL POC Glucose (mg/dL) 236 H 245 H (75-99) mg/dL Plasma Lactic Acid Giovanny (0.7-2.0) mmol/L Total Bilirubin 1.6 H (0.2-1.3) mg/dL Total Protein 5.6 L (6.3-8.2) g/dL Albumin 2.9 L (3.5-5.0) g/dL 02/06/17 02/06/17 Range/Units 11:17 11:39 Plt Count (150-450) k/uL PT (9.0-12.0) sec Sodium (137-145) mmol/L Glucose (74-99) mg/dL POC Glucose (mg/dL) 289 H (75-99) mg/dL Plasma Lactic Acid Giovanny 2.8 H* (0.7-2.0) mmol/L Total Bilirubin (0.2-1.3) mg/dL Total Protein (6.3-8.2) g/dL Albumin (3.5-5.0) g/dL Assessment and Plan Plan: 1. UTI with sepsis present on admission: Patient started on IV Zosyn. Urine culture and blood culture pending. Had a fever of 101.5 and a lactic acid level of 6.2 on admission. Continue with IV fluid hydration. Consult infectious disease 2. Diabetes mellitus type 2 with hyperglycemia: Blood sugar 300 on admission. CO2 level 19. Positive ketones in the urine. We'll check acetone level. Add sliding scale coverage. Discontinue metformin. Continue with glipizide. Check hemoglobin A1c 3. Metabolic acidosis: CO2 of 19. Repeat labs in a.m. Continue treatment of sepsis. 4. History of chronic atrial fibrillation: EKG shows atrial fibrillation with controlled rate and nonspecific S and T-wave abnormality. Continue atenolol and Coumadin. INR therapeutic at 2.6. Cardiology consulted 5. Essential hypertension: Continue lisinopril, hydrochlorothiazide and atenolol GI prophylaxis Protonix and DVT prophylaxis maintained on Coumadin
--- NOTE | 2017-02-06 16:11 | PN ---
DATE OF SERVICE: 02/06/2017 REASON FOR FOLLOWUP: UTI and likely sepsis. INTERVAL HISTORY: The patient is afebrile. He has been feeling better, breathing comfortably. Denies significant chest pain, shortness of breath or cough. No abdominal pain or any diarrhea. Urinary symptoms are improved. On examination, blood pressure is 113/65 with a pulse of 64, temperature 97.3. He is 94% on room air. General description is an elderly male lying in bed in no distress. RESPIRATORY SYSTEM: Unlabored breathing. Clear to auscultation anteriorly. HEART: S1, S2. Regular rate and rhythm. ABDOMEN: Soft. No tenderness. EXTREMITIES: Two plus edema of feet. LABS: Hemoglobin is 14, white count 6.4. BUN of 15, creatinine 0.80. Blood and urine cultures so far are negative. Ultrasound abdomen did not show any significant abnormality. DIAGNOSTIC IMPRESSION AND PLAN: Patient admitted to hospital with fever, rigors and chills and did have urinary symptoms, more likely secondary to urinary source. Patient seemed to respond to Zosyn. That will be continued while waiting for the cultures to finalize to determine discharge antibiotics. Continue supportive care. CANDI
[2017-02-06 16:46] LABS: Glucose,Whole Blood 253 mg/dL (75-99)
[2017-02-06] MEDS: glipiZIDE 10 MG TAB PO SCH (17:03)
--- NOTE | 2017-02-06 19:29 | CONS ---
DATE OF CONSULTATION: Patient is admitted to the hospital. Patient is known to have chronic atrial fibrillation, diabetes, hypertension and follows with my associate, Dr. Randle, in the office. Patient presented ( ) was treated as an outpatient for a UTI but presented to the emergency room with chills and shakes. Patient had a temperature of 101.5 with a lactic acid elevated to 6.2 and WBC count is mildly elevated at 6 and the blood sugar was 300. Patient was felt to have urinary sepsis and patient was started on Zosyn in the emergency room. Patient is feeling better now. Patient's past history is remarkable for ( ) fibrillation and diabetes mellitus, hypertension, history of heart failure, history of arthritis. Patient had an infection ( ) antibiotics in 2007 after an orthopedic procedure probably. Patient had ( ) cardioversion in the past, colonoscopy, knee arthroscopy. Patient was never a smoker. He used to chew tobacco for about 7 years, which he quit in 1989. Alcohol use: none reported. Patient's medications prior to admission include: 1. Atenolol 50 mg p.o. daily. 2. Lisinopril 5 mg discontinued. 3. Lisinopril with hydrochlorothiazide 20/12.5. 4. Warfarin 5 mg p.o. daily. 5. Glipizide 5 mg p.o. daily. 6. ( ) 10 mg with supper. 7. Metformin 1000 mg p.o. b.i.d. ALLERGIES: NONE MENTIONED. Physical examination revealed well-developed, well-nourished 76-year-old gentleman, not in acute distress with ( ) activity. Pulse rate of 70 beats per minute, irregularly irregular. Blood pressure of 140/70 mmHg. Respirations 18. HEAD: Normocephalic. HEENT unremarkable. Neck is supple. No JVD. CARDIAC EXAMINATION: S1 and S2. Lungs are clinically to auscultation and percussion. Abdomen is soft. EXTREMITIES: Minimal pedal edema. [employer] examination is grossly within normal limits. Patient is on therapeutic IV antibiotics and therapeutic pro times; need to watch the pro times further because of antibiotics. ASSESSMENT: 1. Urosepsis. 2. Chronic atrial fibrillation with controlled ventricular rate. 3. Diabetes mellitus. 4. Metabolic acidosis. 5. Essential hypertension. RECOMMENDATIONS: Concur with current therapy. Patient will be continued on current medications. Will closely watch the pro times to make sure the patient does not get into higher pro times.
[2017-02-06] MEDS: LISINOPRIL 5 MG TAB PO SCH (19:48)
[2017-02-06] MEDS: WARFARIN 5 MG TAB PO SCH (19:48)
[2017-02-06 20:57] LABS: Glucose,Whole Blood 320 mg/dL (75-99)
[2017-02-06] MEDS: INSULIN GLARGINE 100 UNIT/ML 10 ML VIAL SQ SCH (23:18)
[2017-02-07 06:30] LABS: Aty Lym Flag Slight; CH 31.8; CHCM 34.7; HCT 40.8 % (39.0-53.0); HDW 2.75; HGB 14.1 gm/dL (13.0-17.5); MCH 31.9 pg (25.0-35.0); MCHC 34.6 g/dL (31.0-37.0); MCV 92.1 fL (80.0-100.0); Mean Platelet Volume 9.2; RBC 4.43 m/uL (4.30-5.90); WBC 5.7 k/uL (3.8-10.6); WBC (Perox) 5.89
[2017-02-07 06:33] LABS: INR 1.6 (<1.1); Prothrombin Time 15.4 sec (9.0-12.0)
[2017-02-07 06:37] LABS: Glucose,Whole Blood 204 mg/dL (75-99)
[2017-02-07 06:44] LABS: ALT 53 U/L (21-72); AST 45 U/L (17-59); Alkaline Phosphatase 61 U/L (38-126); Anion Gap 10 mmol/L; Blood Urea Nitrogen 14 mg/dL (9-20); Calcium 8.6 mg/dL (8.4-10.2); Carbon Dioxide 24 mmol/L (22-30); Chloride 103 mmol/L (98-107); Glucose 205 mg/dL (74-99); Non-African American GFR(MDRD) >60 (>60 ml/min/1.73 sqM); Potassium 3.9 mmol/L (3.5-5.1); Sodium 137 mmol/L (137-145); Total Bilirubin 1.1 mg/dL (0.2-1.3); Total Protein 5.9 g/dL (6.3-8.2)
[2017-02-07 06:55] LABS: Add Differential Manual Differential
[2017-02-07 06:58] LABS: Manual Review Performed; Nucleated Red Blood Cells 0 /100 WBC (0-0); Total Cells Counted 100
[2017-02-07] MEDS: SODIUM CHLORIDE 0.9% 1,000 ML IV SCH ×3 (06:58→23:40)
[2017-02-07] MEDS: glipiZIDE 5 MG TAB PO SCH (06:59)
[2017-02-07] MEDS: INSULIN LISPRO (humaLOG) 300 UNIT/3 ML VIAL SQ SCH ×4 (06:59→20:41)
[2017-02-07] MEDS: PIPERACILLIN-TAZOBACTAM 3.375 GM in DEXTROSE/WATER 1 50ML.BAG IVPB SCH ×3 (08:08→23:40)
[2017-02-07] MEDS: ATENOLOL 50 MG TAB PO SCH (08:08)
[2017-02-07] MEDS: PANTOPRAZOLE 40 MG TABLET PO SCH (08:09)
[2017-02-07] MEDS: LISINOPRIL-HCTZ 20-12.5 MG 1 EACH TAB PO SCH (08:09)
[2017-02-07 11:40] LABS: Glucose,Whole Blood 251 mg/dL (75-99)
--- NOTE | 2017-02-07 12:03 | P.PN ---
Subjective Principal diagnosis: sepsis with urinary tract infection patient is doing better today he is afebrile, he denies any pain or discomfort, blood culture so far is negative urine culture showing gram-negative bacilli, ID and sensitivity are still pending. Objective - Vital Signs Vital signs: Vital Signs Temp 97.2 F L 02/07/17 11:10 Pulse 64 02/07/17 11:10 Resp 20 02/07/17 11:10 BP 135/81 02/07/17 11:10 Pulse Ox 95 02/07/17 11:10 Intake & Output 02/06/17 02/07/17 02/07/17 18:59 06:59 18:59 Intake Total 1136 450 Output Total 850 820 Balance 286 -370 Weight 111 kg 111 kg Intake: IV 800 400 Sodium Chloride 0.9% 1, 800 400 000 ml @ 100 mls/hr IV . Q10H GUY Rx#:[id number] Intake, IV Titration 100 50 Amount Piperacillin-Tazobactam 3 100 50 .375 gm In Dextrose/Water 1 50ml.bag @ 12.5 mls/hr IVPB Q8HR GUY Rx#: [id number] Oral 236 Output: Urine 850 820 Other: Voiding Method Urinal Urinal Urinal # Voids 2 - Exam in general patient is alert and oriented 3 HEENT without any acute abnormality Neck is supple no JVD no goiter no lymphadenopathy Chest exam reveals a few scattered crackles no wheezing Cardiac exam reveals irregular heart sounds no murmurs abdomen is soft nontender no organomegaly Extremity exam reveals no edema no cyanosis or clubbing - Labs CBC & Chem 7: 02/07/17 05:43 02/07/17 05:43 Labs: Abnormal Lab Results - Last 24 Hours (Table) 02/06/17 02/06/17 02/07/17 Range/Units 16:44 20:52 05:43 Plt Count 103 L (150-450) k/uL PT (9.0-12.0) sec Creatinine (0.66-1.25) mg/dL Glucose (74-99) mg/dL POC Glucose (mg/dL) 253 H 320 H (75-99) mg/dL Total Protein (6.3-8.2) g/dL Albumin (3.5-5.0) g/dL 02/07/17 02/07/17 02/07/17 Range/Units 05:43 05:43 06:36 Plt Count (150-450) k/uL PT 15.4 H (9.0-12.0) sec Creatinine 0.64 L (0.66-1.25) mg/dL Glucose 205 H (74-99) mg/dL POC Glucose (mg/dL) 204 H (75-99) mg/dL Total Protein 5.9 L (6.3-8.2) g/dL Albumin 3.1 L (3.5-5.0) g/dL 02/07/17 Range/Units 11:35 Plt Count (150-450) k/uL PT (9.0-12.0) sec Creatinine (0.66-1.25) mg/dL Glucose (74-99) mg/dL POC Glucose (mg/dL) 251 H (75-99) mg/dL Total Protein (6.3-8.2) g/dL Albumin (3.5-5.0) g/dL Assessment and Plan Plan: 1. UTI with sepsis present on admission: Patient started on IV Zosyn. Urine culture and blood culture pending. Had a fever of 101.5 and a lactic acid level of 6.2 on admission. Continue with IV fluid hydration. Consult infectious disease 2. Diabetes mellitus type 2 with hyperglycemia: Blood sugar 300 on admission. CO2 level 19. up to 24 today Add sliding scale coverage. Continue with glipizide. Check hemoglobin A1c 3. Metabolic acidosis, on presentation 4. History of chronic atrial fibrillation: EKG shows atrial fibrillation with controlled rate and nonspecific S and T-wave abnormality. Continue atenolol and Coumadin. INR subtherapeutic will give Coumadin 7.5 mg today 5. Essential hypertension: Continue lisinopril, hydrochlorothiazide and atenolol GI prophylaxis Protonix and DVT prophylaxis maintained on Coumadin
--- NOTE | 2017-02-07 15:32 | P.PN ---
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 Currently being treated for UTI sepsis. Cardiology consultation was requested to see the patient because of his cardiac history. Blood pressure and heart rate here have remained stable. Patient had mild troponin abnormality, not consistent with acute coronary syndrome, likely secondary to sepsis. Objective - Vital Signs Vital signs: Vital Signs Temp 97.2 F L 02/07/17 12:00 Pulse 64 02/07/17 12:00 Resp 20 02/07/17 12:00 BP 135/81 02/07/17 12:00 Pulse Ox 95 02/07/17 12:00 Intake & Output 02/06/17 02/07/17 02/07/17 18:59 06:59 18:59 Intake Total 1136 450 220 Output Total 850 820 Balance 286 -370 220 Weight 111 kg 111 kg Intake: IV 800 400 Sodium Chloride 0.9% 1, 800 400 000 ml @ 100 mls/hr IV . Q10H GUY Rx#:[id number] Intake, IV Titration 100 50 Amount Piperacillin-Tazobactam 3 100 50 .375 gm In Dextrose/Water 1 50ml.bag @ 12.5 mls/hr IVPB Q8HR GUY Rx#: [id number] Oral 236 220 Output: Urine 850 820 Other: Voiding Method Urinal Urinal Urinal # Voids 2 - Exam PHYSICAL EXAMINATION: HEENT: Head is atraumatic, normocephalic. Pupils equal, round. Neck is supple. There is no elevated jugular venous pressure. HEART EXAMINATION: S1 and S2 irregularly irregular CHEST EXAMINATION: Lungs are clear to auscultation and precussion. No chest wall tenderness is noted on palpation or with deep breathing. ABDOMEN: Soft, nontender. Bowel sounds are heard. No organomegaly noted. EXTREMITIES: 2+ peripheral pulses with no evidence of peripheral edema and no calf tenderness noted. NEUROLOGIC patient is awake, alert and oriented -3. . - Labs CBC & Chem 7: 02/07/17 05:43 02/07/17 05:43 Labs: Abnormal Lab Results - Last 24 Hours (Table) 02/06/17 02/06/17 02/07/17 Range/Units 16:44 20:52 05:43 Plt Count 103 L (150-450) k/uL PT (9.0-12.0) sec Creatinine (0.66-1.25) mg/dL Glucose (74-99) mg/dL POC Glucose (mg/dL) 253 H 320 H (75-99) mg/dL Total Protein (6.3-8.2) g/dL Albumin (3.5-5.0) g/dL 02/07/17 02/07/17 02/07/17 Range/Units 05:43 05:43 06:36 Plt Count (150-450) k/uL PT 15.4 H (9.0-12.0) sec Creatinine 0.64 L (0.66-1.25) mg/dL Glucose 205 H (74-99) mg/dL POC Glucose (mg/dL) 204 H (75-99) mg/dL Total Protein 5.9 L (6.3-8.2) g/dL Albumin 3.1 L (3.5-5.0) g/dL 02/07/17 Range/Units 11:35 Plt Count (150-450) k/uL PT (9.0-12.0) sec Creatinine (0.66-1.25) mg/dL Glucose (74-99) mg/dL POC Glucose (mg/dL) 251 H (75-99) mg/dL Total Protein (6.3-8.2) g/dL Albumin (3.5-5.0) g/dL Assessment and Plan (1) UTI (urinary tract infection) Status: Acute (2) Sepsis Status: Acute (3) Chronic a-fib Status: Acute (4) HTN (hypertension) Status: Acute Plan: From cardiology's perspective we will recommend to continue current therapy, we' ll follow this patient with you now on an as-needed basis only, please don't hesitate to call with any questions. DNP note has been reviewed, I agree with a documented findings and plan of care. Patient was seen and examined.
[2017-02-07] MEDS: glipiZIDE 10 MG TAB PO SCH (17:09)
[2017-02-07 17:13] LABS: Glucose,Whole Blood 250 mg/dL (75-99)
[2017-02-07] MEDS ORDERED: WARFARIN 7.5 MG TAB PO ONE (18:00)
[2017-02-07] MEDS: LISINOPRIL 5 MG TAB PO SCH (20:21)
[2017-02-07] MEDS: INSULIN GLARGINE 100 UNIT/ML 10 ML VIAL SQ SCH (20:22)
[2017-02-07 20:40] LABS: Glucose,Whole Blood 228 mg/dL (75-99)
--- NOTE | 2017-02-07 21:44 | PN ---
DATE OF SERVICE: 02/07/2017 REASON FOR FOLLOWUP: Urinary tract infection with sepsis. INTERVAL HISTORY: The patient is afebrile. He is currently breathing comfortably. He denies having any chest pain or shortness of breath or cough. No abdominal pain or any diarrhea. On examination, blood pressure is 135/81 with a pulse of 84, temperature 97.2. He is 95% on room air. General description is an elderly male up in the bed in no distress. RESPIRATORY SYSTEM: Unlabored breathing. Clear to auscultation anteriorly. HEART: S1, S2. Regular rate and rhythm. ABDOMEN: Soft. No tenderness. LABS: Urine with Gram-negative. Blood culture has been negative. DIAGNOSTIC IMPRESSION AND PLAN: Patient admitted to hospital with sepsis. Source is likely urinary in a patient with Gram-negative in the urine. Will wait for the ID and sensitivity. Continue patient on Zosyn, to which he has responded. Discharge antibiotics will depend upon the culture report. Continue supportive care.
[2017-02-08 06:15] LABS: Glucose,Whole Blood 240 mg/dL (75-99)
[2017-02-08 06:23] LABS: INR 1.7 (<1.1)
[2017-02-08] MEDS: SODIUM CHLORIDE 0.9% 1,000 ML IV SCH (06:27)
[2017-02-08] MEDS: INSULIN LISPRO (humaLOG) 300 UNIT/3 ML VIAL SQ SCH ×2 (06:27→12:17)
[2017-02-08 06:31] LABS: ALT 62 U/L (21-72); AST 50 U/L (17-59); Alkaline Phosphatase 71 U/L (38-126); Anion Gap 7 mmol/L; Blood Urea Nitrogen 13 mg/dL (9-20); Calcium 8.7 mg/dL (8.4-10.2); Carbon Dioxide 29 mmol/L (22-30); Chloride 100 mmol/L (98-107); Glucose 236 mg/dL (74-99); Non-African American GFR(MDRD) >60 (>60 ml/min/1.73 sqM); Potassium 3.9 mmol/L (3.5-5.1); Sodium 136 mmol/L (137-145); Total Bilirubin 1.3 mg/dL (0.2-1.3); Total Protein 6.1 g/dL (6.3-8.2)
[2017-02-08 06:33] LABS: Aty Lym Flag Slight; CH 31.8; CHCM 34.2; HCT 40.4 % (39.0-53.0); HGB 13.7 gm/dL (13.0-17.5); MCH 31.7 pg (25.0-35.0); MCV 93.2 fL (80.0-100.0); Mean Platelet Volume 8.6; RBC 4.33 m/uL (4.30-5.90); RDW 13.9 % (11.5-15.5); WBC 5.9 k/uL (3.8-10.6); WBC (Perox) 5.82
[2017-02-08] MEDS: glipiZIDE 5 MG TAB PO SCH (06:54)
[2017-02-08 07:03] LABS: Add Differential Manual Differential
[2017-02-08 07:22] LABS: Nucleated Red Blood Cells 0 /100 WBC (0-0); Total Cells Counted 100
[2017-02-08 07:23] LABS: Manual Review Performed
[2017-02-08] MEDS: ATENOLOL 50 MG TAB PO SCH (08:34)
[2017-02-08] MEDS: PIPERACILLIN-TAZOBACTAM 3.375 GM in DEXTROSE/WATER 1 50ML.BAG IVPB SCH (08:34)
[2017-02-08] MEDS: LISINOPRIL-HCTZ 20-12.5 MG 1 EACH TAB PO SCH (08:35)
[2017-02-08] MEDS: PANTOPRAZOLE 40 MG TABLET PO SCH (08:35)
[2017-02-08 11:28] VITALS: PULSE 63; RESP 22
[2017-02-08 12:08] LABS: Glucose,Whole Blood 256 mg/dL (75-99)
--- NOTE | 2017-02-08 15:21 | PN ---
DATE OF SERVICE: 02/08/2017 Reason for followup is UTI and sepsis. INTERVAL HISTORY: The patient is afebrile. He is currently feeling better. Breathing comfortably. Denies significant chest pain, shortness of breath, no cough, no abdominal and no diarrhea. On examination, blood pressure 128/71 with a pulse of 60, temperature 97. He is 93% on room air. General description is an elderly male, lying in bed in no distress. RESPIRATORY SYSTEM: Unlabored breathing. Clear to auscultation anteriorly. HEART: S1, S2. Regular rate and rhythm. ABDOMEN: Soft. No tenderness. LABS: Hemoglobin is 13.7, white count of 5.9 with a BUN of 13, creatinine is 0.70, urinary culture is Enterobacter aeruginosa and sensitive to cipro as well as Zosyn. Blood cultures have been negative. DIAGNOSTIC IMPRESSION AND PLAN: Patient with Enterobacter urinary tract infection with sepsis. Patient did show overall clinical improvement. PLAN: At this time is to finish therapy with p.o. Cipro 500 mg twice a day for another 11 days with outpatient followup , plan discussed with nurse practitioner for the primary team. CANDI
--- NOTE | 2017-02-08 16:02 | P.DS ---
Providers Date of admission: 02/05/17 10:10 Expected date of discharge: 02/08/17 Attending physician: Ravindra Hemphill Consults: 02/05/17 13:50 Consult Physician Routine Consulting Provider: Lonnie Lott Consult Reason/Comments: UTI with sepsis Do you want consulting provider notified?: Yes Primary care physician: Beatriz [facility] Course: Discharge diagnosis 1. UTI with sepsis present on admission: Patient started on IV Zosyn. Urine culture and blood culture pending. Had a fever of 101.5 and a lactic acid level of 6.2 on admission. Continue with IV fluid hydration. Consult infectious disease 2. Diabetes mellitus type 2 with hyperglycemia: Blood sugar 300 on admission. Continue glipizide and metformin Check hemoglobin A1c 8.3 3. Metabolic acidosis, on presentation 4. History of chronic atrial fibrillation: EKG shows atrial fibrillation with controlled rate and nonspecific S and T-wave abnormality. Continue atenolol and Coumadin. INR 1.7 at discharge. Continue Coumadin 5 mg at home 5. Essential hypertension: Continue lisinopril, hydrochlorothiazide and atenolol Hospital course This is a 76-year-old male with a known history of atrial fibrillation, diabetes mellitus and hypertension. Patient presents to the emergency room with complaints of chills and shakes. He had noted to have burning with urination that started through the night and into the morning. He had hematuria and urinary frequency. Patient reports about 6 weeks ago he also was treated outpatient for urinary tract infection. Patient had a temp of 101.5 on admission did receive IV fluids and started on IV Zosyn in the emergency room. Lactic acid level was elevated at 6.2 white count 10.6. Patient is being treated for UTI with sepsis. Blood cultures are pending. He also had elevated blood sugar of 300. I did receive insulin in the emergency room. We'll continue to monitor sliding scale has been ordered. Patient acetone level came back negative. Patient was seen evaluated by infectious disease. Urine culture did grow Enterobacter aeruginosa's. And they're recommending Cipro for 11 more days. Patient's symptoms have improved. He is medically stable for discharge. Patient was also evaluated by cardiology. No new recommendations. Patient will follow-up with his PCP in the office. Recommend that patient monitors of blood sugars. We'll increase his glipizide to 10 mg twice a day. Patient Condition at Discharge: Stable Plan - Discharge Summary New Discharge Prescriptions: Ciprofloxacin HCl [Cipro] 500 mg PO Q12HR #22 tablet Discharge Medication List Atenolol [Tenormin] 50 mg PO DAILY 02/05/17 [History] Lisinopril [Zestril] 5 mg PO HS 02/05/17 [History] Lisinopril-Hctz 20-12.5 mg [Zestoretic 20-12.5] 1 tab PO DAILY 02/05/17 [History ] Warfarin Sodium [Coumadin] 5 mg PO HS 02/05/17 [History] glipiZIDE [Glucotrol] 5 mg PO AC-BRKFST 02/05/17 [History] glipiZIDE [Glucotrol] 10 mg PO AC-SUPPER 02/05/17 [History] metFORMIN HCL 1,000 mg PO BID 02/05/17 [History] Ciprofloxacin HCl [Cipro] 500 mg PO Q12HR #22 tablet 02/08/17 [Rx] Follow up Appointment(s)/Referral(s): Beatriz Melvin DO [Primary Care Provider] - 02/12/17 2:15 pm Lonnie Lott MD [STAFF PHYSICIAN] - 02/15/17 10:45 am Activity/Diet/Wound Care/Special Instructions: Diet: cardiac, diabetic Activity: as tolerated Discharge Disposition: HOME SELF-CARE
[2017-02-08 16:08] VITALS: BP 129/79; TEMP 98.1
== END 2017-02-08 16:36 | disposition home or self-care (01) | DRG 872 ==
LOC: EC 08:38 → 6SEL 10:10
PROVIDERS: ADMIT Internal Medicine; ATTEND Internal Medicine
DX: A41.59 Other Gram-negative sepsis (principal); E87.2 Acidosis; I48.1 Persistent atrial fibrillation; N39.0 Urinary tract infection, site not specified; R65.20 Severe sepsis without septic shock; E11.65 Type 2 diabetes mellitus with hyperglycemia; I11.0 Hypertensive heart disease with heart failure; I50.9 Heart failure, unspecified; I25.5 Ischemic cardiomyopathy; R31.9 Hematuria, unspecified; M17.12 Unilateral primary osteoarthritis, left knee; M19.042 Primary osteoarthritis, left hand; M19.041 Primary osteoarthritis, right hand; Z95.810 Presence of automatic (implantable) cardiac defibrillator; Z87.891 Personal history of nicotine dependence; Z86.59 Personal history of other mental and behavioral disorders; Z79.84 Long term (current) use of oral hypoglycemic drugs; Z79.01 Long term (current) use of anticoagulants; Z79.899 Other long term (current) drug therapy
CPT/HCPCS: 36415; 71020; 76705; 76770; 80053; 81001; 82009; 83036; 83605; 84484; 85025; 85610; 85730; 87040; 87077; 87086; 87186; 87502; 93005; 96365; 96366; 99291

== ENCOUNTER 2022-01-28 12:44 | Emergency (ER) | payer MEDICARE ==
[2022-01-28 13:14] VITALS: BP 144/78; PULSE 65; RESP 16; TEMP 98.6
[2022-01-28] MEDS ORDERED: methocarbamoL 750 MG TAB PO STA (15:40)
[2022-01-28] MEDS ORDERED: KETOROLAC 15 MG/ML 1 ML VIAL IM STA (15:40)
[2022-01-28] MEDS ORDERED: KETOROLAC 15 MG/ML 1 ML VIAL IVP STA (15:50)
[2022-01-28 16:18] LABS: INR 2.3 (<1.2); Prothrombin Time 22.6 sec (9.0-12.0)
--- NOTE | 2022-01-28 16:34 | XR ---
EXAMINATION TYPE: XR pelvis AP view, XR knee complete RT, XR femur RT DATE OF EXAM: 01/28/2022 CLINICAL HISTORY: Pelvic and right hip pain. TECHNIQUE: A single AP view of the pelvis is obtained. Two views of the right femur are obtained. 3 views right knee. COMPARISON: None. FINDINGS: There is no acute fracture/dislocation evident in the pelvis. Kqfa-bu-ohtnfkoe axial joint space loss in both hips with mild acetabular spurring bilaterally slightly more prominent in the left hip versu s right hip. Pubic symphysis is intact. Sacroiliac joints are preserved. Overlying soft tissue is un remarkable. 2 views of right femur show no acute fracture or dislocation. Severe arteriovascular calcification me dially in the right lower extremity is present. Moderate to severe medial tibiofemoral compartment and patellofemoral compartment narrowing is presen t. No acute fracture or dislocation right knee. Severe arterial vascular calcification . There is 2.7 cm old oval-shaped calcific density lower lateral thigh which may relate to old trauma, consider celso sitis ossificans. Recommend appropriate clinical correlation. IMPRESSION: As above.
--- NOTE | 2022-01-28 16:51 | ED ---
General Adult HPI - General Chief complaint: Extremity Injury, Lower Stated complaint: right leg pain Time Seen by Provider: 01/28/22 15:18 Source: patient, RN notes reviewed, old records reviewed Mode of arrival: wheelchair Limitations: no limitations - History of Present Illness Initial comments: Katina is an 81-year-old male with past medical history remarkable for a severe arthritis bilateral knees, atrial fibrillation on Coumadin, diabetes, hypertension he presents emergency Department complaining of right leg pain. Describes a pulling, throbbing pain that radiates from his lateral right hip down past the knee on the right side. Denies twisting his knee, falling, any sort of injury. Is uncertain what caused it. Presents emergency department for evaluation. Sometimes ambulates with a cane at home, however has been ambulating without 1 since the pain started. Does have a history of bad right knee arthritis and does receive steroid injections in that knee. Is uncertain what is causing his current pain. States he is compliant with his Coumadin and his INR typically runs therapeutic at 2.5. Denies any other history of blood clots. His no other acute complaints at this time. Did not fall. Denied his head. His no other acute complaints at this time. Presents with concern for right leg pain. - Related Data Home Medications Medication Instructions Recorded Confirmed Lisinopril-Hctz 20-12.5 mg 1 tab PO BID 02/05/17 01/28/22 [Zestoretic 20-12.5] metFORMIN HCL [Glucophage] 1,000 mg PO BID 02/05/17 01/28/22 Cholecalciferol [Vitamin D3 (125 125 mcg PO BID 01/28/22 01/28/22 Mcg = 5000 Iu)] Insulin Detemir [Levemir Flextouch 40 units SQ DAILY 01/28/22 01/28/22 Pen] Metoprolol Tartrate [Lopressor] 25 mg PO DAILY 01/28/22 01/28/22 Spironolactone 50 mg PO DAILY 01/28/22 01/28/22 Warfarin Sodium [Jantoven] 5 mg PO [id number] 01/28/22 01/28/22 Warfarin Sodium [Jantoven] 7.5 mg PO [place] 01/28/22 01/28/22 Previous Rx's Medication Instructions Recorded glipiZIDE [Glucotrol] 10 mg PO AC-BID #60 tablet 02/08/17 Allergies Allergy/AdvReac Type Severity Reaction Status Date / Time No Known Allergies Allergy Verified 01/28/22 16:18 Review of Systems ROS Statement: Those systems with pertinent positive or pertinent negative responses have been documented in the HPI. Review of Systems: CONST: Denies fever EYES: Denies blurry vision ENT: Denies nasal congestion C/V: Denies Chest pain RESP: Denies shortness of breath GI: Denies abdominal pain : Denies dysuria SKIN: Denies rash. MSK: Endorses right leg. NEURO: Denies headache ROS Other: All systems not noted in ROS Statement are negative. Past Medical History Past Medical History: Atrial Fibrillation, Diabetes Mellitus, Hypertension Additional Past Medical History / Comment(s): cervical fx. History of Any Multi-Drug Resistant Organisms: None Reported Past Surgical History: Appendectomy Additional Past Surgical History / Comment(s): 2009 RUSSEL/cardioversion, colonoscopy, L knee arthroscopy. Past Anesthesia/Blood Transfusion Reactions: No Reported Reaction Past Psychological History: No Psychological Hx Reported Smoking Status: Never smoker Past Alcohol Use History: None Reported Past Drug Use History: None Reported - Past Family History Mother Family Medical History: Cancer Additional Family Medical History / Comment(s): Mother had metastatic cancer. She at the age of 57yrs. Father Family Medical History: Myocardial Infarction ([place]) Additional Family Medical History / Comment(s): Father at the age of 63yrs of a [place]. General Exam - General Exam Comments Initial Comments: General: Appears in no acute distress. HEAD: Normal with no signs of head trauma. EYES: PERRLA, EOMI, conjunctiva normal, no discharge. ENT: Hearing grossly intact, normal oropharynx. RESPIRATORY: Clear breath sounds bilaterally. No wheezes, rales, or rhonchi. C/V: Regular rate and rhythm. S1 and S2 auscultated, no edema, peripheral pulses 2+ and intact throughout ABD: Abd is soft, nontender, nondistended EXT: Normal range of motion, no obvious deformity. Patient is able to relate. Has some mild tenderness to palpation over the right lateral hip, leg, knee. SKIN: No rashes or lesions observed on exposed skin. NEURO: Alert and oriented 4. Limitations: no limitations Course Vital Signs 01/28/22 13:09 Temperature 98.6 F Pulse Rate 65 Respiratory 16 Rate Blood Pressure 144/78 O2 Sat by Pulse 94 L Oximetry Medical Decision Making - Medical Decision Making Based on patient's presentation and physical exam, sprain, however cannot rule out the possibility of DVT at this time. We will obtain a screening INR to evaluate for therapeutic levels. We'll also obtain x-rays of the right leg to rule out bony traumatic injury. Patient was in agreement this plan. He will be given Toradol as well as Robaxin for analgesia. No further laboratory studies or imaging are required at this time. Patient's imaging shows signs of arthritis but no acute injuries. Laboratory studies are remarkable for therapeutic INR of 2.3. On reevaluation come patient remains ambulatory. I discussed the results with him. He is following up with his orthopedic doctor this week. I believe it is safe for Discharge home at this time with close follow-up. He was in agreement with the plan. I instructed the patient to follow up with their PCP in the next 3 days. I explained that the patient should return to the emergency department if they experience any worsening symptoms. Strict return precautions were discussed with the patient. The patient expressed understanding of these instructions. I answered all questions that the patient had. The patient was discharged home in good condition with their prescriptions and follow up information. - Lab Data Lab Results 01/28/22 Range/Units 15:54 PT 22.6 H (9.0-12.0) sec INR 2.3 H (<1.2) Disposition Clinical Impression: Right leg pain, Arthritis Disposition: HOME SELF-CARE Condition: Good Instructions (If sedation given, give patient instructions): Knee Pain (ED) Is patient prescribed a controlled substance at d/c from ED?: No Referrals: Beatriz Melvin DO [Primary Care Provider] - 1-2 days
== END 2022-01-28 16:59 | disposition home or self-care (01) ==
LOC: EC 12:44
DX: M79.604 Pain in right leg (principal); E11.9 Type 2 diabetes mellitus without complications; I10 Essential (primary) hypertension; M17.11 Unilateral primary osteoarthritis, right knee; Z82.49 Family history of ischemic heart disease and other diseases of the circulatory system
CPT/HCPCS: 36415; 85610; 72170; 73552; 73562; 99283; 96374; J1885

== ENCOUNTER → 2022-06-26 | Outpatient (CLI) | payer MEDICARE ==
[2022-06-26 14:38] LABS: African American GFR (CKD) 77.1 (60.0-200.0); Albumin 3.8 g/dL (3.8-4.9); Albumin/Globulin Ratio 1.3 (1.60-3.17); Anion Gap 12.2 mmol/L (10.00-18.00); BUN/Creat Ratio 25.87 Ratio (12.00-20.00); Blood Urea Nitrogen 26.9 mg/dL (9.0-27.0); Calcium 9.5 mg/dL (8.7-10.3); Non-African American GFR(CKD) 66.6 (60.0-200.0); Potassium 4.4 mmol/L (3.5-5.5); Total Bilirubin 0.9 mg/dL (0.30-1.20); Total Protein 6.8 g/dL (6.2-8.2)
== END | disposition home or self-care (01) ==
LOC: LABWHC1 08:01
PROVIDERS: ATTEND Internal Medicine Interventional Cardiology
DX: I42.8 Other cardiomyopathies (principal)
CPT/HCPCS: 36415; 80053; 83880

== ENCOUNTER 2023-04-14 23:12 | Inpatient (IN) | payer MEDICARE ==
[2023-04-15 00:01] LABS: Magnesium 1.7 mg/dL (1.6-2.3); Potassium 4.2 mmol/L (3.5-5.1); Total Bilirubin 1.2 mg/dL (0.2-1.3)
[2023-04-15 00:02] LABS: Anisocytosis Moderate; Basophils % (A) 0 %; Eosinophils # (A) 0.1 k/uL (0-0.7); Eosinophils % (A) 1 %; HCT 30.2 % (39.0-53.0); HGB 9.1 gm/dL (13.0-17.5); Hypochromasia Marked; Lymphocytes # (A) 1.7 k/uL (1.0-4.8); Lymphocytes % (A) 15 %; MCH 20.8 pg (25.0-35.0); MCHC 30.1 g/dL (31.0-37.0); MCV 69.1 fL (80.0-100.0); Mean Platelet Volume 7.7; Microcytosis Marked; Monocytes # (A) 0.8 k/uL (0-1.0); Monocytes % (A) 7 %; Neutrophils # (A) 8.6 k/uL (1.3-7.7); Neutrophils % (A) 75 %; Platelet Count 300 k/uL (150-450); Poikilocytosis Slight; RBC 4.38 m/uL (4.30-5.90); RDW 20.4 % (11.5-15.5); WBC 11.4 k/uL (3.8-10.6)
[2023-04-15 00:07] LABS: INR 2.6 (<1.2); Partial Thromboplastin Time 28.1 sec (22.0-30.0); Prothrombin Time 25.3 sec (9.0-12.0)
[2023-04-15] MEDS ORDERED: SODIUM CHLORIDE 0.9% 500 ML 500 ML IV STA (01:06)
[2023-04-15 04:12] LABS: Appearance,Urine Clear (Clear); Bilirubin,Urine Negative (Negative); Blood,Urine Negative (Negative); Color,Urine Yellow; Glucose,Urine (UA) 4+ (Negative); Ketones,Urine Negative (Negative); Leukocyte Esterase,Urine Negative (Negative); Nitrite,Urine Negative (Negative); PH, Urine 5.5 (5.0-8.0); Protein,Urine Trace (Negative); Specific Gravity,Urine 1.018 (1.001-1.035)
[2023-04-15] MEDS ORDERED: PNEUMONIA PROTOCOL UTILIZED 1 EACH MISC PO PRN (06:03)
--- NOTE | 2023-04-15 06:07 | ED ---
SOB HPI - General Chief Complaint: Shortness of Breath Stated Complaint: SOB Time Seen by Provider: 04/14/23 23:34 Source: patient, EMS Mode of arrival: EMS - History of Present Illness Initial Comments: This patient is an 82-year-old man who arrives to have evaluation of his res piratory status. The patient reports having worsening shortness of breath over the course of tonight. The patient states she does have history of recent left knee replacement. He states that his leg feels relatively good. The swelling has decreased somewhat since the surgery. He denies calf pain or cramping. The patient does continue to take Coumadin not having missed any doses. The patient not noticing fever or chills. Occasional cough. Patient denies sputum. MD Complaint: shortness of breath, cough Onset/Timin -: days(s) Severity scale (1-10): 0 Consistency: constant Improves With: nothing Worsens With: lying flat - Related Data Home Medications Medication Instructions Recorded Confirmed Warfarin Sodium [Jantoven] 5 mg PO DAILY 01/28/22 04/16/23 Omeprazole 40 mg PO DAILY 04/15/23 04/15/23 Tamsulosin [Flomax] 0.4 mg PO BID 04/15/23 04/15/23 Previous Rx's Medication Instructions Recorded Acetaminophen Tab [Tylenol] 500 mg PO Q6HR PRN tab 04/23/23 Benzocaine/Menthol Lozeng [Cepacol 1 each MUCOUS MEM Q1H PRN lozenge 04/23/23 lozenge] Furosemide [Lasix] 40 mg PO BID@0900,1600 tab 04/23/23 INSULIN LISPRO (HumaLOG) [humaLOG] 0 unit SQ ACHS #10 ml 04/23/23 Insulin Detemir (Levemir) [Levemir] 30 unit SQ DAILY@0700 each 04/23/23 Ipratropium-Albuterol Nebulize 3 ml INHALATION Q4H PRN each 04/23/23 [Duoneb 0.5 mg-3 mg/3 ml Soln] Ipratropium-Albuterol Nebulize 3 ml INHALATION RT-QID each 04/23/23 [Duoneb 0.5 mg-3 mg/3 ml Soln] Metoprolol Tartrate [Lopressor] 25 mg PO BID tab 04/23/23 metOLazone [Zaroxolyn] 5 mg PO DAILY tab 04/23/23 Magnesium Oxide [Magox 400] 400 mg PO BID #60 tablet 04/24/23 Potassium Chloride ER [K-Dur 20] 20 meq PO BID #60 tab 04/24/23 Allergies Allergy/AdvReac Type Severity Reaction Status Date / Time No Known Allergies Allergy Verified 01/28/22 16:18 Review of Systems ROS Statement: Those systems with pertinent positive or pertinent negative responses have been documented in the HPI. ROS Other: All systems not noted in ROS Statement are negative. Constitutional: Reports: weakness. Denies: fever, chills Respiratory: Reports: cough, dyspnea. Denies: wheezes, hemoptysis Cardiovascular: Reports: edema. Denies: chest pain, palpitations, orthopnea, syncope Gastrointestinal: Denies: abdominal pain, vomiting, diarrhea Genitourinary: Denies: dysuria, hematuria Musculoskeletal: Denies: back pain Skin: Denies: rash Neurological: Denies: headache, weakness Past Medical History Past Medical History: Atrial Fibrillation, Diabetes Mellitus, Hypertension Additional Past Medical History / Comment(s): cervical fx. History of Any Multi-Drug Resistant Organisms: None Reported Past Surgical History: Appendectomy Additional Past Surgical History / Comment(s): 2009 RUSSEL/cardioversion, colonoscopy, L knee arthroscopy. Past Anesthesia/Blood Transfusion Reactions: No Reported Reaction Past Psychological History: No Psychological Hx Reported Smoking Status: Never smoker Past Alcohol Use History: None Reported Past Drug Use History: None Reported - Past Family History Mother Family Medical History: Cancer Additional Family Medical History / Comment(s): Mother had metastatic cancer. She at the age of 57yrs. Father Family Medical History: Myocardial Infarction ([place]) Additional Family Medical History / Comment(s): Father at the age of 63yrs of a [place]. Course Vital Signs 04/14/23 04/15/23 04/15/23 23:18 03:36 04:56 Temperature 98.2 F Pulse Rate 74 78 70 Respiratory 18 20 18 Rate Blood Pressure 117/69 111/68 111/78 O2 Sat by Pulse 94 L 97 98 Oximetry Fraction of Inspired Oxygen (FIO2) 04/15/23 04/15/23 04/15/23 06:08 07:30 08:13 Temperature Pulse Rate 77 71 118 H Respiratory 18 18 18 Rate Blood Pressure 129/80 131/93 O2 Sat by Pulse 95 95 99 Oximetry Fraction of Inspired Oxygen (FIO2) 04/15/23 04/15/23 08:20 08:28 Temperature Pulse Rate 105 H Respiratory 12 Rate Blood Pressure 127/94 O2 Sat by Pulse 98 Oximetry Fraction of 100 Inspired Oxygen (FIO2) Medical Decision Making - Medical Decision Making This patient is an 82-year-old man presenting with shortness of breath. He does appear to be dyspneic and the patient is sent for chest x-ray. I interpreted this as showing suspected left lower lobe infiltrate. Patient started on antibiotics and will admit for further treatment. Do not suspect that the patient has PE, given that he is therapeutic on Coumadin. Additionally, the patient is denying leg pain, chest pain, hemoptysis. Was pt. sent in by a medical professional or institution (, PA, TOWN CLERK, urgent care, hospital, or correction...) When possible be specific @ -[No] Did you speak to anyone other than the patient for history (EMS, parent, family, police, friend...)? What history was obtained from this source @ -[History given by patient and his partner Did you review nursing and triage notes (agree or disagree)? Why? @ -[I reviewed and agree with nursing and triage notes] Were old charts reviewed (outside hosp., previous admission, EMS record, old EKG, old radiological studies, urgent care reports/EKG's, correction records)? Report findings @ -[No old charts were reviewed] Differential Diagnosis (chest pain, altered mental status, abdominal pain women, abdominal pain men, vaginal bleeding, weakness, fever, dyspnea, syncope, headache, dizziness, GI bleed, back pain, seizure, CVA, palpatations, mental health, musculoskeletal)? @ -[Differential Dyspnea: Coronary syndrome, arrhythmia, tamponade, asthma, COPD, pulmonary embolism, pneumonia, pneumothorax, pulmonary effusion, anaphylaxis, diabetic ketoacidosis, flailed chest, pulmonary contusion, diaphragmatic rupture, anemia, neuromuscular, this is not meant to be an all-inclusive list. EKG interpreted by me (3pts min.). @ -[As above] X-rays interpreted by me (1pt min.). @ -[As above CT interpreted by me (1pt min.). @ -[None done] U/S interpreted by me (1pt. min.). @ -[None done] What testing was considered but not performed or refused? (CT, X-rays, U/S, labs)? Why? @ -[CT angiogram of chest is considered but patient is therapeutic on Coumadin, see above What meds were considered but not given or refused? Why? @ -[None] Did you discuss the management of the patient with other professionals (professionals i.e. DrSupa, PA, TOWN CLERK, lab, RT, psych nurse, social service worker, vessel traffic officer, teacher, photographic intelligence officer, family independence case manager)? Give summary @ -[Case is discussed with admitting physician Was smoking cessation discussed for >3mins.? @ -[No] Was critical care preformed (if so, how long)? @ -[No] Were there social determinants of health that impacted care today? How? (Homel essness, low income, unemployed, alcoholism, drug addiction, transportation, low edu. Level, literacy, decrease access to med. care, skilled nursing, rehab)? @ -[No] Was there de-escalation of care discussed even if they declined (Discuss DNR or withdrawal of care, Hospice)? DNR status @ -[No] What co-morbidities impacted this encounter? (DM, HTN, Smoking, COPD, CAD, Cancer, CVA, ARF, Chemo, Hep., AIDS, mental health diagnosis, sleep apnea, morbid obesity)? @ -[None] Was patient admitted / discharged? Hospital course, mention meds given and route, prescriptions, significant lab abnormalities, going to OR and other pertinent info. @ -[Patient admitted for treatment of suspected pneumonia, antibiotic started for pneumonia Undiagnosed new problem with uncertain prognosis? @ -[No] Drug Therapy requiring intensive monitoring for toxicity (Heparin, Nitro, Insulin, Cardizem)? @ -[No] Were any procedures done? @ -[No] Diagnosis/symptom? @ -[Acute dyspnea, probably multifactorial Pneumonia Congestive heart failure Acute, or Chronic, or Acute on Chronic? @ -[Acute Uncomplicated (without systemic symptoms) or Complicated (systemic symptoms)? @ -[Complicated Side effects of treatment? @ -[No] Exacerbation, Progression, or Severe Exacerbation? @ -[No] Poses a threat to life or bodily function? How? (Chest pain, [place], [place], pneumonia, PE, COPD, DKA, ARF, appy, cholecystitis, CVA, Diverticulitis, Homicidal, Suicidal, threat to staff... and all critical care pts) @ -Yes - Lab Data Result diagrams: 04/21/23 10:20 04/24/23 14:25 Lab Results 04/14/23 04/14/23 04/14/23 Range/Units 23:37 23:37 23:37 WBC 11.4 H (3.8-10.6) k/uL RBC 4.38 (4.30-5.90) m/uL Hgb 9.1 L (13.0-17.5) gm/dL Hct 30.2 L (39.0-53.0) % MCV 69.1 L (80.0-100.0) fL MCH 20.8 L (25.0-35.0) pg MCHC 30.1 L (31.0-37.0) g/dL RDW 20.4 H (11.5-15.5) % Plt Count 300 (150-450) k/uL MPV 7.7 Neutrophils % 75 % Lymphocytes % 15 % Monocytes % 7 % Eosinophils % 1 % Basophils % 0 % Neutrophils # 8.6 H (1.3-7.7) k/uL Lymphocytes # 1.7 (1.0-4.8) k/uL Monocytes # 0.8 (0-1.0) k/uL Eosinophils # 0.1 (0-0.7) k/uL Basophils # 0.0 (0-0.2) k/uL Hypochromasia Marked Poikilocytosis Slight Anisocytosis Moderate Microcytosis Marked PT 25.3 H (9.0-12.0) sec INR 2.6 H (<1.2) APTT 28.1 (22.0-30.0) sec Sodium 130 L (137-145) mmol/L Potassium 4.2 (3.5-5.1) mmol/L Chloride 93 L (98-107) mmol/L Carbon Dioxide 29 (22-30) mmol/L Anion Gap 8 mmol/L BUN 25 H (9-20) mg/dL Creatinine 0.93 (0.66-1.25) mg/dL Est GFR (CKD-EPI)AfAm 88 (>60 ml/min/1.73 sqM) Est GFR (CKD-EPI)NonAf 76 (>60 ml/min/1.73 sqM) Glucose 95 (74-99) mg/dL Lactic Ac Sepsis Rflx Plasma Lactic Acid Giovanny (0.7-2.0) mmol/L Calcium 9.0 (8.4-10.2) mg/dL Magnesium 1.7 (1.6-2.3) mg/dL Total Bilirubin 1.2 (0.2-1.3) mg/dL AST 29 (17-59) U/L ALT 38 (4-49) U/L Alkaline Phosphatase 180 H (38-126) U/L Troponin I (0.000-0.034) ng/mL NT-Pro-B Natriuret Pep pg/mL Total Protein 6.0 L (6.3-8.2) g/dL Albumin 3.0 L (3.5-5.0) g/dL Urine Color Urine Appearance (Clear) Urine pH (5.0-8.0) Ur Specific [place] (1.001-1.035) Urine Protein (Negative) Urine Glucose (UA) (Negative) Urine Ketones (Negative) Urine Blood (Negative) Urine Nitrite (Negative) Urine Bilirubin (Negative) Urine Urobilinogen (<2.0) mg/dL Ur Leukocyte Esterase (Negative) 04/14/23 04/14/23 04/14/23 Range/Units 23:37 23:37 23:37 WBC (3.8-10.6) k/uL RBC (4.30-5.90) m/uL Hgb (13.0-17.5) gm/dL Hct (39.0-53.0) % MCV (80.0-100.0) fL MCH (25.0-35.0) pg MCHC (31.0-37.0) g/dL RDW (11.5-15.5) % Plt Count (150-450) k/uL MPV Neutrophils % % Lymphocytes % % Monocytes % % Eosinophils % % Basophils % % Neutrophils # (1.3-7.7) k/uL Lymphocytes # (1.0-4.8) k/uL Monocytes # (0-1.0) k/uL Eosinophils # (0-0.7) k/uL Basophils # (0-0.2) k/uL Hypochromasia Poikilocytosis Anisocytosis Microcytosis PT (9.0-12.0) sec INR (<1.2) APTT (22.0-30.0) sec Sodium (137-145) mmol/L Potassium (3.5-5.1) mmol/L Chloride (98-107) mmol/L Carbon Dioxide (22-30) mmol/L Anion Gap mmol/L BUN (9-20) mg/dL Creatinine (0.66-1.25) mg/dL Est GFR (CKD-EPI)AfAm (>60 ml/min/1.73 sqM) Est GFR (CKD-EPI)NonAf (>60 ml/min/1.73 sqM) Glucose (74-99) mg/dL Lactic Ac Sepsis Rflx Plasma Lactic Acid Giovanny 2.2 H* (0.7-2.0) mmol/L Calcium (8.4-10.2) mg/dL Magnesium (1.6-2.3) mg/dL Total Bilirubin (0.2-1.3) mg/dL AST (17-59) U/L ALT (4-49) U/L Alkaline Phosphatase (38-126) U/L Troponin I 0.057 H* (0.000-0.034) ng/mL NT-Pro-B Natriuret Pep 2790 pg/mL Total Protein (6.3-8.2) g/dL Albumin (3.5-5.0) g/dL Urine Color Urine Appearance (Clear) Urine pH (5.0-8.0) Ur Specific [place] (1.001-1.035) Urine Protein (Negative) Urine Glucose (UA) (Negative) Urine Ketones (Negative) Urine Blood (Negative) Urine Nitrite (Negative) Urine Bilirubin (Negative) Urine Urobilinogen (<2.0) mg/dL Ur Leukocyte Esterase (Negative) 04/15/23 04/15/23 04/15/23 Range/Units 00:16 03:36 04:34 WBC (3.8-10.6) k/uL RBC (4.30-5.90) m/uL Hgb (13.0-17.5) gm/dL Hct (39.0-53.0) % MCV (80.0-100.0) fL MCH (25.0-35.0) pg MCHC (31.0-37.0) g/dL RDW (11.5-15.5) % Plt Count (150-450) k/uL MPV Neutrophils % % Lymphocytes % % Monocytes % % Eosinophils % % Basophils % % Neutrophils # (1.3-7.7) k/uL Lymphocytes # (1.0-4.8) k/uL Monocytes # (0-1.0) k/uL Eosinophils # (0-0.7) k/uL Basophils # (0-0.2) k/uL Hypochromasia Poikilocytosis Anisocytosis Microcytosis PT (9.0-12.0) sec INR (<1.2) APTT (22.0-30.0) sec Sodium (137-145) mmol/L Potassium (3.5-5.1) mmol/L Chloride (98-107) mmol/L Carbon Dioxide (22-30) mmol/L Anion Gap mmol/L BUN (9-20) mg/dL Creatinine (0.66-1.25) mg/dL Est GFR (CKD-EPI)AfAm (>60 ml/min/1.73 sqM) Est GFR (CKD-EPI)NonAf (>60 ml/min/1.73 sqM) Glucose (74-99) mg/dL Lactic Ac Sepsis Rflx Y Plasma Lactic Acid Giovanny 1.6 (0.7-2.0) mmol/L Calcium (8.4-10.2) mg/dL Magnesium (1.6-2.3) mg/dL Total Bilirubin (0.2-1.3) mg/dL AST (17-59) U/L ALT (4-49) U/L Alkaline Phosphatase (38-126) U/L Troponin I (0.000-0.034) ng/mL NT-Pro-B Natriuret Pep pg/mL Total Protein (6.3-8.2) g/dL Albumin (3.5-5.0) g/dL Urine Color Yellow Urine Appearance Clear (Clear) Urine pH 5.5 (5.0-8.0) Ur Specific [place] 1.018 (1.001-1.035) Urine Protein Trace H (Negative) Urine Glucose (UA) 4+ H (Negative) Urine Ketones Negative (Negative) Urine Blood Negative (Negative) Urine Nitrite Negative (Negative) Urine Bilirubin Negative (Negative) Urine Urobilinogen 2.0 (<2.0) mg/dL Ur Leukocyte Esterase Negative (Negative) - EKG Data -: EKG Interpreted by Me EKG shows normal: axis (Left axis deviation), intervals (Normal), QRS complexes (Incomplete right bundle branch block) Interpretation: nonspecific ST-T wave changes, other (Underlying rhythm is atria l fibrillation) Disposition Clinical Impression: Dyspnea, Pneumonia Disposition: ADMITTED IP TO THIS HOSP Condition: Stable Is patient prescribed a controlled substance at d/c from ED?: No
--- NOTE | 2023-04-15 07:03 | XR ---
EXAMINATION TYPE: XR chest 2V DATE OF EXAM: 04/15/2023 COMPARISON: 01/29/1717 HISTORY: Shortness of breath TECHNIQUE: Frontal and lateral views of the chest are obtained. FINDINGS: Scattered senescent parenchymal changes noted. Hyperinflation compatible with COPD. Patchy density noted on the lateral projection posteriorly likely likely at the left medial lung base . Small bilateral pleural effusions. Heart size is stable. Mediastinal structures are stable and grossly unremarkable. No evidence for hilar prominence. Degenerative changes dorsal spine. IMPRESSION: 1. Patchy density noted on the lateral projection posteriorly likely likely at the left medial lung b ase. Small bilateral pleural effusions.
[2023-04-15] MEDS: AZITHROMYCIN 500 MG TAB PO SCH (07:04)
[2023-04-15] MEDS: SODIUM CHLORIDE 0.9% 1,000 ML IV SCH (07:25)
[2023-04-15] MEDS ORDERED: AMIODARONE 50 MG/ML 3 ML VIAL IV ONE (08:10)
[2023-04-15] MEDS ORDERED: CALCIUM CHLORIDE 100 MG/ML 10 ML SYRINGE ONE (08:10)
[2023-04-15] MEDS ORDERED: MAGNESIUM SULFATE SYG 4.06 MEQ/ML SYRINGE ONE (08:10)
[2023-04-15] MEDS ORDERED: DEXTROSE 5% IN WATER 50 ML BAG ONE (08:10)
[2023-04-15 08:29] LABS: Glucose,Whole Blood 194 mg/dL (70-110)
[2023-04-15] MEDS ORDERED: VANCOMYCIN IV PER PHARMACY 1 EACH MISC MISCELLANE PRN (08:32)
--- NOTE | 2023-04-15 08:32 | XR ---
EXAMINATION TYPE: XR chest 1V portable DATE OF EXAM: 04/15/2023 HISTORY: Shortness of breath. COMPARISON: 04/15/2023 from earlier in the day. TECHNIQUE: Single view of the chest is submitted. FINDINGS: There is endotracheal tube noted to be in place with its distal tip approximately 5.6 cm from the car ariana. There is evidence of pulmonary venous congestion, cardiomegaly and scattered infiltrates felt to reflect underlying features of congestive failure. Hilar and mediastinal structures are within normal limits. Degenerative changes are seen of the dorsal spine. IMPRESSION: 1. Progressive congestive failure suspected. Endotracheal tube as noted.
[2023-04-15 08:37] LABS: ABG Base Excess -1.8 mmol/L; ABG HCO3 25 mmol/L (21-25); ABG PCO2 50 mmHg (35-45); ABG PO2 179 mmHg (83-108); ABG TCO2 26 mmol/L (19-24); Allen Test Performed? Yes
[2023-04-15] MEDS ORDERED: AMIODARONE 360 MG in DEXTROSE 5% IN WATER 200 ML IV ONE ×2 (09:00)
[2023-04-15] MEDS ORDERED: FUROSEMIDE 10 MG/ML 10 ML VIAL IV STA (09:13)
[2023-04-15] MEDS: NOREPINEPHRINE 4 MG in SODIUM CHLORIDE 0.9% 250 ML IV SCH ×2 (09:15→20:59)
[2023-04-15 09:18] LABS: Glucose,Whole Blood 202 mg/dL (70-110)
[2023-04-15] MEDS ORDERED: IPRATROPIUM-ALBUTEROL 3 ML NEB INHALATION PRN (09:30)
--- NOTE | 2023-04-15 09:30 | CT ---
EXAMINATION TYPE: CT chest angio for PE DATE OF EXAM: 04/15/2023 COMPARISON: None HISTORY: Pneumonia, coded CT DLP: 750.4 mGycm CONTRAST: CT chest with contrast and 3D reconstruction with MIP imaging is performed with IV Contrast, patient injected with 100 mL of Isovue 370. Contrast-enhanced CT of the chest was performed through the course of the pulmonary arteries with jono g and mediastinal window settings submitted. 3D reconstruction with MIP imaging was also performed. PULMONARY ARTERIES: The pulmonary arteries and their major tributaries are patent. I do not see brittany dence for sizable filling defect to suggest pulmonary embolic process. LUNGS: Endotracheal tube is appropriately placed. There is moderate right-sided pleural effusion with maximal AP dimension of 6.9 cm. On the left other small left pleural effusion with maximal AP dimens ion of 1.8 cm. There is basilar compressive atelectasis and/or infiltrate. Moderate cardiomegaly note d. MEDIASTINUM: Moderate cardiomegaly. Thoracic aorta is of normal caliber. No evidence for mediastinal mass. No mediastinal lymph nodes greater than 1cm. HILAR STRUCTURES: No evidence for mass. No hilar lymph nodes greater than 1 cm. UPPER ABDOMEN: No significant abnormality is seen. IMPRESSION: 1. No evidence for Pulmonary embolism at this time. 2. Moderate cardiomegaly with moderate right-sided effusion and smaller left-sided pleural effusion. There is probable compressive atelectasis although basilar infiltrates of other etiology not excluded .
[2023-04-15] MEDS ORDERED: NALOXONE 0.4 MG/ML 1 ML VIAL IV PRN (09:31)
[2023-04-15 09:48] LABS: ABG HCO3 23 mmol/L (21-25); ABG PCO2 37 mmHg (35-45); ABG PO2 >400 mmHg (83-108); ABG TCO2 24 mmol/L (19-24); Allen Test Performed? Yes
--- NOTE | 2023-04-15 09:48 | P.CRDCN ---
History of Present Illness Consult date: 04/15/23 History of present illness: History of Present Illness: The patient is an 82-year-old male with known history of hypertension, diabetes, chronic persistent atrial fibrillation who has underwent recent left total knee arthroplasty and presented with symptoms of progressive dyspnea. In the emergency room he became more dyspneic, hypotensive, had what appears to be acco rding to the staff atrial fibrillation with wide complex, was intubated and received a bolus of amiodarone. He is seen in the ICU. He is in atrial fibrillation was controlled ventricle response. He has significant edema on presentation. Chest x-ray showed probable CHF and his CT angiogram showed no pulmonary embolism with right-sided effusion with possible atelectasis. No other history is available. Medications: Metformin, Coumadin, Glucotrol, spironolactone, metoprolol, lisinopril HCTZ, insulin Review of Systems: Could not be obtained Physical Examination: 82-year-old male, intubated and sedated,Blood pressure 129/80, Heart rate 60 Head: Normocephalic. Eyes: Sclerae nonicteric. Neck: Good carotid upstroke, no bruit, no jugular venous distention. Lungs: Decreased breath sounds at the bases Heart: Irregular rate and rhythm, S1-S2, no S3, no rub. Systolic ejection murmur. Abdomen: Soft, positive bowel sounds no organomegaly. Extremities: +2 edema, intact distal pulses. Karli left knee Labs: Hemoglobin 9.1, WBC 11.4, INR 2.6, troponin 0.057 and 0.042. NT proBNP 2790. BUN 25, creatinine 0.93, potassium 4.2. EKG: Atrial fibrillation with rare PVCs and nonspecific ST-T wave changes Impression: 1. Respiratory failure with evidence to suggest CHF, baseline systolic function is not available 2. Chronic persistent atrial fibrillation, anticoagulated 3. Status post recent knee surgery 4. History of hypertension 5. History of diabetes 6. Mild troponin elevation, type II myocardial infarction, no evidence of acute ischemic event Plan: 1. Continue beta brody 2. Start IV diuretics 3. Obtain an echocardiogram with Doppler 4. Follow renal functions 5. Depending on his progress further recommendations will be made, thank you for this consult we will follow with you. Past Medical History Past Medical History: Atrial Fibrillation, Diabetes Mellitus, Hypertension Additional Past Medical History / Comment(s): cervical fx. History of Any Multi-Drug Resistant Organisms: None Reported Past Surgical History: Appendectomy Additional Past Surgical History / Comment(s): 2010 RUSSEL/cardioversion, colonoscopy, L knee arthroscopy. Past Anesthesia/Blood Transfusion Reactions: No Reported Reaction Past Psychological History: No Psychological Hx Reported Smoking Status: Never smoker Past Alcohol Use History: None Reported Past Drug Use History: None Reported - Past Family History Mother Family Medical History: Cancer Additional Family Medical History / Comment(s): Mother had metastatic cancer. She at the age of 57yrs. Father Family Medical History: Myocardial Infarction ([place]) Additional Family Medical History / Comment(s): Father at the age of 63yrs of a [place]. Medications and Allergies Home Medications Medication Instructions Recorded Confirmed Type Lisinopril-Hctz 20-12.5 mg 1 tab PO BID 02/05/17 01/28/22 History [Zestoretic 20-12.5] metFORMIN HCL [Glucophage] 1,000 mg PO BID 02/05/17 01/28/22 History glipiZIDE [Glucotrol] 10 mg PO AC-BID #60 tablet 02/08/17 01/28/22 Rx Cholecalciferol [Vitamin D3 (125 125 mcg PO BID 01/28/22 01/28/22 History Mcg = 5000 Iu)] Insulin Detemir [Levemir Flextouch 40 units SQ DAILY 01/28/22 01/28/22 History Pen] Metoprolol Tartrate [Lopressor] 25 mg PO DAILY 01/28/22 01/28/22 History Spironolactone 50 mg PO DAILY 01/28/22 01/28/22 History Warfarin Sodium [Jantoven] 5 mg PO MOTUWETHFRSA 01/28/22 01/28/22 History Warfarin Sodium [Jantoven] 7.5 mg PO [place] 01/28/22 01/28/22 History Allergies Allergy/AdvReac Type Severity Reaction Status Date / Time No Known Allergies Allergy Verified 01/28/22 16:18 Physical Exam Vitals: Vital Signs Temp Pulse Resp BP Pulse Ox FiO2 04/15/23 09:34 100 04/15/23 09:08 100 04/15/23 08:20 100 04/15/23 06:08 77 18 129/80 95 04/15/23 04:56 70 18 111/78 98 04/15/23 03:36 78 20 111/68 97 04/14/23 23:18 98.2 F 74 18 117/69 94 L Intake and Output 04/14/23 04/15/23 04/15/23 22:59 06:59 14:59 Other: Weight 97.522 kg Results 04/14/23 23:37 04/14/23 23:37 Cardiac Enzymes 04/14/23 04/14/23 04/15/23 Range/Units 23:37 23:37 06:08 AST 29 (17-59) U/L Troponin I 0.057 H* 0.042 H* (0.000-0.034) ng/mL Coagulation 04/14/23 Range/Units 23:37 PT 25.3 H (9.0-12.0) sec APTT 28.1 (22.0-30.0) sec CBC 04/14/23 Range/Units 23:37 WBC 11.4 H (3.8-10.6) k/uL RBC 4.38 (4.30-5.90) m/uL Hgb 9.1 L (13.0-17.5) gm/dL Hct 30.2 L (39.0-53.0) % Plt Count 300 (150-450) k/uL Comprehensive Metabolic Panel 04/14/23 Range/Units 23:37 Sodium 130 L (137-145) mmol/L Potassium 4.2 (3.5-5.1) mmol/L Chloride 93 L (98-107) mmol/L Carbon Dioxide 29 (22-30) mmol/L BUN 25 H (9-20) mg/dL Creatinine 0.93 (0.66-1.25) mg/dL Glucose 95 (74-99) mg/dL Calcium 9.0 (8.4-10.2) mg/dL AST 29 (17-59) U/L ALT 38 (4-49) U/L Alkaline Phosphatase 180 H (38-126) U/L Total Protein 6.0 L (6.3-8.2) g/dL Albumin 3.0 L (3.5-5.0) g/dL Current Medications Generic Name Dose Route Start Last Admin Trade Name Freq PRN Reason Stop Dose Admin Albuterol/Ipratropium 3 ml 04/15/23 09:30 Ipratropium-Albuterol 3 Ml Neb INHALATION RT-Q2H PRN Shortness Of Breath Or Wheezing Albuterol/Ipratropium 3 ml 04/15/23 12:00 Ipratropium-Albuterol 3 Ml Neb INHALATION RT-Q4H GUY Azithromycin 500 mg 04/15/23 07:00 04/15/23 07:04 Azithromycin 500 Mg Tab PO 04/17/23 09:01 500 mg DAILY GUY Administration Protocol Chlorhexidine Gluconate 15 ml 04/15/23 21:00 Chlorhexidine Gluconate 15 Ml Cup MUCOUS MEM BID GUY Sodium Chloride 1,000 mls @ 20 mls/hr 04/15/23 06:15 04/15/23 07:25 Saline 0.9% IV 20 mls/hr .Q24H GUY Administration Ceftriaxone Sodium 2 gm/ 50 mls @ 100 mls/hr 04/15/23 07:00 04/15/23 07:04 Sodium Chloride IVPB 04/18/23 09:29 100 mls/hr Q24HR GUY Administration Protocol Propofol 1,000 mg/ IV Solution 100 mls @ 8.777 mls/hr 04/15/23 08:45 IV .[id number] GUY Protocol 15 MCG/KG/MIN Amiodarone HCl 450 mg/ 250 mls @ 16.667 mls/hr 04/15/23 15:00 Dextrose/Water IV 04/16/23 08:59 .Q15H GUY Protocol 0.5 MG/MIN Vancomycin HCl 2,000 mg/ 500 mls @ 167 mls/hr 04/15/23 10:00 Sodium Chloride IVPB 04/15/23 12:59 ONCE ONE Vancomycin HCl 1,750 mg/ 500 mls @ 167 mls/hr 04/16/23 00:00 Sodium Chloride IVPB Q16H GUY Norepinephrine Bitartrate 4 mg 254 mls @ 11.147 mls/hr 04/15/23 09:15 / Sodium Chloride IV .[id number] GUY Protocol 0.03 MCG/KG/MIN Miscellaneous Information 1 each 04/15/23 06:03 Pneumonia Protocol Utilized 1 Each Misc PO ONCE PRN Per Protocol Naloxone HCl 0.2 mg 04/15/23 09:31 Naloxone 0.4 Mg/Ml 1 Ml Vial IV Q2M PRN Opioid Reversal Intake and Output 04/14/23 04/15/23 04/15/23 22:59 06:59 14:59 Other: Weight 97.522 kg 04/14/23 23:37 04/14/23 23:37
[2023-04-15 09:51] LABS: Anisocytosis Moderate; HCT 27.4 % (39.0-53.0); HGB 8.2 gm/dL (13.0-17.5); Hypochromasia Marked; MCH 21.3 pg (25.0-35.0); MCHC 29.9 g/dL (31.0-37.0); MCV 71.1 fL (80.0-100.0); Mean Platelet Volume 7.9; Microcytosis Marked; Platelet Count 238 k/uL (150-450); Poikilocytosis Slight; RBC 3.85 m/uL (4.30-5.90); RDW 20.4 % (11.5-15.5); WBC 16.9 k/uL (3.8-10.6)
[2023-04-15] MEDS ORDERED: VANCOMYCIN 2,000 MG in SODIUM CHLORIDE 0.9% 500 ML 500 ML IVPB ONE (10:00)
[2023-04-15 10:01] LABS: INR 2.9 (<1.2); Prothrombin Time 27.8 sec (9.0-12.0)
[2023-04-15 10:02] LABS: ALT 31 U/L (4-49); AST 29 U/L (17-59); African American GFR (CKD) >90 (>60 ml/min/1.73 sqM); Albumin 2.5 g/dL (3.5-5.0); Alkaline Phosphatase 122 U/L (38-126); Anion Gap 7 mmol/L; Blood Urea Nitrogen 27 mg/dL (9-20); Calcium 8.8 mg/dL (8.4-10.2); Carbon Dioxide 24 mmol/L (22-30); Chloride 96 mmol/L (98-107); Glucose 176 mg/dL (74-99); Non-African American GFR(CKD) 80 (>60 ml/min/1.73 sqM); Phosphorus 4.7 mg/dL (2.5-4.5); Potassium 4.6 mmol/L (3.5-5.1); Sodium 127 mmol/L (137-145); Total Bilirubin 1.2 mg/dL (0.2-1.3); Total Protein 5.2 g/dL (6.3-8.2)
--- NOTE | 2023-04-15 10:09 | XR ---
EXAMINATION TYPE: XR knee complete LT DATE OF EXAM: 04/15/2023 CLINICAL HISTORY: pain TECHNIQUE: Three views of the left knee are obtained. COMPARISON: None. FINDINGS: There is evidence of total knee arthroplasty with femoral and tibial components appearing w ell seated. Overlying skin francesco are noted. There is soft tissue swelling noted as well as extensiv e vascular calcifications. No evidence for fracture or malalignment. IMPRESSION: There is no acute fracture or dislocation ICD 10 NO FRACTURE, INITIAL EVALUATION
--- NOTE | 2023-04-15 10:10 | XR ---
EXAMINATION TYPE: XR chest 1V portable DATE OF EXAM: 04/15/2023 HISTORY: Shortness of breath. COMPARISON: 04/15/2023 TECHNIQUE: Single view of the chest is submitted. FINDINGS: Endotracheal tube is appropriately placed. NG tube is seen coursing into the stomach. Persistent cardiomegaly with bilateral pleural effusions and pulmonary venous congestion. Hilar and mediastinal structures are within normal limits. Degenerative changes are seen of the dorsal spine. IMPRESSION: 1. NG tube is appropriately placed.
[2023-04-15] MEDS ORDERED: PHYTONADIONE 5 MG in SODIUM CHLORIDE 0.9% 50 ML IVPB STA (10:15)
--- NOTE | 2023-04-15 10:16 | P.CNPUL ---
History of Present Illness Consult date: 04/15/23 Chief complaint: Cardiopulmonary arrest History of present illness: This is a 82-year-old male patient who presented to the Department having shell rtness of breath. The patient had a recent left total knee replacement in an outside facility. The patient is diabetic and has hypertension and chronic atrial fibrillation. In the emergency, the patient went progressively more short of breath, and it seems to be that the patient went into respiratory and subsequent cardiac arrest. He was offered CPR for a total of 3 minutes. His underlying cardiac rhythm was PEA as the patient has no pulses. He did have a wide-complex apical rhythm with underlying atrial fibrillation. Subsequently, there was return of spontaneous circulation. The patient was intubated in the emergency and he was brought up to the intensive care unit. Prior to his ar rival, he was also given a CT angiogram that showed no evidence of any pulmonary embolism. It showed moderate-sized bilateral pleural effusion right more than left and compressive atelectatic changes in lung bases. The patient had an obvious cardiomegaly. Post intubation chest x-ray was consistent with CHF and bilateral pleural effusions. He does have chronic edema lower extremity is bilaterally. The left knee francesco are still in place. There is a area of ecchymosis around the wound with a superficial skin abrasion and the surface of the wound is covered with eschar which is quite dark and nonpurulent. The patient is currently on norepinephrine which is running at 0.13 microvascular kilogram per minute. He was given IV Lasix 60 mg and his urine output is in order of 1 75 mL since his arrival from the emergency department. He has a Grande catheter in place. The white cell count is 16.9 with a hemoglobin of 8.2 and a platelet count of 238. INR is at 2.9. Post intubation blood gas shows a pH of 7.4 with a pCO2 of 37 and pO2 of 400. The patient is currently on assist control mode at the rate of 20 with a tidal volume of 500 and FiO2 was at 100% with a PEEP of 5 and FiO2 was dropped down to 50%. The sodium level is at 127, potassium levels at 4.6, BUN is 27 with a creatinine of 0.88. Troponins are 0.05 and 0.04 respectively and a proBNP level is 2790. LFTs are normal. UA was negative. His current cardiac rhythm is atrial fibrillation at rate of 54. Patient is currently on propofol which is running at 60 mcg/kg/m. Review of Systems ROS unobtainable: due to endotracheal tube Past Medical History Past Medical History: Atrial Fibrillation, Diabetes Mellitus, Hypertension Additional Past Medical History / Comment(s): cervical fx. History of Any Multi-Drug Resistant Organisms: None Reported Past Surgical History: Appendectomy Additional Past Surgical History / Comment(s): 2009 RUSSEL/cardioversion, colonoscopy, L knee arthroscopy. Past Anesthesia/Blood Transfusion Reactions: No Reported Reaction Past Psychological History: No Psychological Hx Reported Smoking Status: Never smoker Past Alcohol Use History: None Reported Past Drug Use History: None Reported - Past Family History Mother Family Medical History: Cancer Additional Family Medical History / Comment(s): Mother had metastatic cancer. She at the age of 57yrs. Father Family Medical History: Myocardial Infarction ([place]) Additional Family Medical History / Comment(s): Father at the age of 63yrs of a [place]. Medications and Allergies Home Medications Medication Instructions Recorded Confirmed Type Lisinopril-Hctz 20-12.5 mg 1 tab PO BID 02/05/17 01/28/22 History [Zestoretic 20-12.5] metFORMIN HCL [Glucophage] 1,000 mg PO BID 02/05/17 01/28/22 History glipiZIDE [Glucotrol] 10 mg PO AC-BID #60 tablet 02/08/17 01/28/22 Rx Cholecalciferol [Vitamin D3 (125 125 mcg PO BID 01/28/22 01/28/22 History Mcg = 5000 Iu)] Insulin Detemir [Levemir Flextouch 40 units SQ DAILY 01/28/22 01/28/22 History Pen] Metoprolol Tartrate [Lopressor] 25 mg PO DAILY 01/28/22 01/28/22 History Spironolactone 50 mg PO DAILY 01/28/22 01/28/22 History Warfarin Sodium [Jantoven] 5 mg PO MOTUWETHFRSA 01/28/22 01/28/22 History Warfarin Sodium [Jantoven] 7.5 mg PO [place] 01/28/22 01/28/22 History Allergies Allergy/AdvReac Type Severity Reaction Status Date / Time No Known Allergies Allergy Verified 01/28/22 16:18 Physical Exam Vitals: Vital Signs Temp Pulse Resp BP Pulse Ox FiO2 04/15/23 09:51 50 04/15/23 09:34 100 04/15/23 09:08 100 04/15/23 08:20 100 04/15/23 06:08 77 18 129/80 95 04/15/23 04:56 70 18 111/78 98 04/15/23 03:36 78 20 111/68 97 04/14/23 23:18 98.2 F 74 18 117/69 94 L Intake and Output 04/14/23 04/15/23 04/15/23 22:59 06:59 14:59 Intake Total 44.181 Balance 44.181 Intake: Intake, IV Titration 44.181 Amount Norepinephrine 4 mg In 18.825 Sodium Chloride 0.9% 250 ml @ 0.03 MCG/KG/MIN 11. 147 mls/hr IV .[id number] GUY Rx#:[id number] propofoL 1,000 mg In 25.356 Empty Bag 1 bag @ 15 MCG/ KG/MIN 8.777 mls/hr IV . [id number] GUY Rx#:[id number] Other: Weight 97.522 kg Gen. appearance the patient is currently intubated, calm and comfortable on propofol, orotracheal and orogastric tube are both in place Head exam was generally normal. There was no scleral icterus or corneal arcus. Mucous membranes were moist. Neck was supple and without jugular venous distension, thyromegaly, or carotid bruits. Carotids were easily palpable bilaterally. There was no adenopathy. Lungs sounds are diminished bilaterally in the lung bases no wheezes or rhonchi Heart sounds are irregular, positive S1-S2 normal heart sounds are distant Abdominal exam revealed normal bowel sounds. The abdomen was soft, non-tender, and without masses, organomegaly, or appreciable enlargement of the abdominal aorta. Extremities revealed +1-2 pitting edema, no cyanosis or clubbing, pulses are diminished at the present. Surgical sites over the left knee is nonerythematous. The patient has francesco in place. There is a dry eschar medially to the ones measuring 3 x 4 cm in size without any purulence. The joint itself is not swollen. Patient has a Grande catheter in place. Neurologically, the patient is withdrawing to painful stimulation. Pupils are equal and reactive to light and around 4 mm in size. He has a positive cough and a positive gag. No facial asymmetry. Withdrawing to painful stimulation all 4 extremities. Results - Laboratory Findings CBC and BMP: 04/15/23 09:24 04/15/23 09:24 ABG ABG pH 7.40 (7.35-7.45) 04/15/23 09:45 ABG pCO2 37 mmHg (35-45) 04/15/23 09:45 ABG pO2 >400 mmHg (83-108) H 04/15/23 09:45 ABG O2 Saturation 100.0 % (94-97) H 04/15/23 09:45 PT/INR, D-dimer PT 27.8 sec (9.0-12.0) H 04/15/23 09:24 INR 2.9 (<1.2) H 04/15/23 09:24 Abnormal lab findings: Abnormal Labs 04/14/23 04/14/23 04/14/23 23:37 23:37 23:37 WBC 11.4 H RBC Hgb 9.1 L Hct 30.2 L MCV 69.1 L MCH 20.8 L MCHC 30.1 L RDW 20.4 H Neutrophils # 8.6 H PT 25.3 H INR 2.6 H ABG pH ABG pCO2 ABG pO2 ABG Total CO2 ABG O2 Saturation Sodium 130 L Chloride 93 L BUN 25 H Glucose POC Glucose (mg/dL) Plasma Lactic Acid Giovanny Phosphorus Alkaline Phosphatase 180 H Troponin I Total Protein 6.0 L Albumin 3.0 L Urine Protein Urine Glucose (UA) 04/14/23 04/14/23 04/15/23 23:37 23:37 03:36 WBC RBC Hgb Hct MCV MCH MCHC RDW Neutrophils # PT INR ABG pH ABG pCO2 ABG pO2 ABG Total CO2 ABG O2 Saturation Sodium Chloride BUN Glucose POC Glucose (mg/dL) Plasma Lactic Acid Giovanny 2.2 H* Phosphorus Alkaline Phosphatase Troponin I 0.057 H* Total Protein Albumin Urine Protein Trace H Urine Glucose (UA) 4+ H 04/15/23 04/15/23 04/15/23 06:08 08:28 08:35 WBC RBC Hgb Hct MCV MCH MCHC RDW Neutrophils # PT INR ABG pH 7.30 L ABG pCO2 50 H ABG pO2 179 H ABG Total CO2 26 H ABG O2 Saturation 100.0 H Sodium Chloride BUN Glucose POC Glucose (mg/dL) 194 H Plasma Lactic Acid Giovanny Phosphorus Alkaline Phosphatase Troponin I 0.042 H* Total Protein Albumin Urine Protein Urine Glucose (UA) 04/15/23 04/15/23 04/15/23 09:17 09:24 09:24 WBC 16.9 H RBC 3.85 L Hgb 8.2 L Hct 27.4 L MCV 71.1 L MCH 21.3 L MCHC 29.9 L RDW 20.4 H Neutrophils # PT 27.8 H INR 2.9 H ABG pH ABG pCO2 ABG pO2 ABG Total CO2 ABG O2 Saturation Sodium Chloride BUN Glucose POC Glucose (mg/dL) 202 H Plasma Lactic Acid Giovanny Phosphorus Alkaline Phosphatase Troponin I Total Protein Albumin Urine Protein Urine Glucose (UA) 04/15/23 04/15/23 09:24 09:45 WBC RBC Hgb Hct MCV MCH MCHC RDW Neutrophils # PT INR ABG pH ABG pCO2 ABG pO2 >400 H ABG Total CO2 ABG O2 Saturation 100.0 H Sodium 127 L Chloride 96 L BUN 27 H Glucose 176 H POC Glucose (mg/dL) Plasma Lactic Acid Giovanny Phosphorus 4.7 H Alkaline Phosphatase Troponin I Total Protein 5.2 L Albumin 2.5 L Urine Protein Urine Glucose (UA) - Diagnostic Findings Chest x-ray: image reviewed Assessment and Plan Plan: Acute cardiac pulmonary arrest, most likely a pulmonary followed by cardiac events. The downtime was around 3 minutes and the patient was in PEA rhythm, resuscitated according to the ACLS protocol, intubated and placed on a mechanical ventilator, current cardiac rhythm is slow atrial fibrillation. Acute hypoxic respiratory failure, currently intubated on a mechanical ventilator Acute hypotension, consider cardiogenic shock/CHF and the patient is currently off pressors at he is on norepinephrine at 0.12 mcg/kg/m Moderate-sized bilateral pleural effusion right more than left, elevated proBNP level, increased lower extremity edema, positive JVDs, consider underlying systolic heart failure. CT angiogram is negative for pulmonary embolism. Chronic atrial fibrillation, rate is controlled for now the patient is on warfarin with an INR of 2.9 Recent left knee arthroplasty, no evidence of any infection at the surgical wound site History of hypertension Diabetes mellitus type 2 Minimal troponin leak secondary to the above-mentioned events Osteoarthritis Obesity Long-term anticoagulation the patient's INR is currently at 2.9 Plan Continue ventilator support Dropped FiO2 down to 50% Keep the patient on propofol Continue pressors Established lines Give the patient 5 mg of vitamin K and monitor the PT/INR Continue pressors Start the patient on Lasix 40 mg every 12 hours Monitor urine output Echocardiogram in the morning And panic antibiotic coverage with IV Zosyn and stop the Rocephin and Zithromax Sliding-scale insulin coverage Daily PT/INR monitoring Cardiology consultation Condition is critical and we'll continue to follow make further recommendations based on his progress. Evaluation was done in more than 30 minutes. Time with Patient: Greater than 30
[2023-04-15] MEDS: METOPROLOL TARTRATE 25 MG TAB PO SCH ×2 (10:39→22:17)
[2023-04-15] MEDS: IPRATROPIUM-ALBUTEROL 3 ML NEB INHALATION SCH ×4 (11:18→23:48)
--- NOTE | 2023-04-15 11:19 | P.EN ---
Was called to patient's bedside for CODE BLUE Bedtime my arrival, patient had returned spontaneous circulation. His cardiac rhythm demonstrated a wide complex irregular rhythm. Blood pressure was in the 120s over 70s, EKG was completed which showed wide-complex irregular rhythm consistent with atrial fibrillation with aberrency. His electrolytes reviewed and noted to have a potassium of 4.2 and magnesium of 1.7. He was subsequently given 1 g of calcium chloride as well as 2 g of magnesium. He was also initiated on amiodarone drip, and his rhythm and became narrow and irregular. EKG was retaken and demonstrated atrial fibrillation with RVR. Patient was intubated. Orders for computed tomography scan of the chest with angiography were ordered to rule out pulmonary embolism. Knee x-ray was ordered given patient's recent knee surgery. Chest x-rays demonstrated volume overload. Patient did have 4+ edema of the legs as well. Postcode ABG demonstrated a pH of 7.3, pCO2 of 50, pO2 of 179. Troponin was elevated at 0.044. BNP was 3490. Patient was transferred to the intensive care unit. He had Grande catheter placed. I then placed orders for 60 mg of IV Lasix. However, patient did have bouts of hypotension in the context of starting propofol for sedation while on the ventilator status post intubation as well as the possibility of cardiogenic shock. Amiodarone was discontinued. Cardiology will evaluate the patient. I spent 50 minutes of critical care time with this patient today.
[2023-04-15] MEDS ORDERED: DEXTROSE 50% SYRINGE 50 ML IVP PRN ×2 (12:03)
[2023-04-15 12:07] LABS: Glucose,Whole Blood 206 mg/dL (70-110)
[2023-04-15] MEDS: INSULIN ASPART (NovoLOG) 100 UNIT/ML VIAL SQ SCH ×2 (12:34→17:39)
--- NOTE | 2023-04-15 12:59 | P.HPIM ---
History of Present Illness 82-year-old male came in with complaints of what has been going on for 4 days patient had a recent knee surgery. Patient is found to be in heart failure subsequently had a cardiac arrest was down for 2 minutes with pulseless electri linda activity was successfully resuscitated presently on a norepinephrine.. Patient is on ventilatory support assist-control ventilation be for 5 patient does have brainstem reflexes patient is sedated at this time with propofol patient has wide complex rhythm with underlying atrial fibrillation patient has chronic A. fib does use anti-correlation at home with history of coronary artery disease and congestive heart failure history. Patient the BNP is elevated to 3500 bilateral pleural effusions and the computed tomography scan of the chest without any pulmonary embolism. Patient denied any coronary artery disease history troponin is 0.042. Patient is bit hyponatremic does have bilateral lower extremity edema. Patient white count went up to 16.9 no evidence of pneumonia on the x-ray no fever. Patient is on [place] home with INR of around 2.9 REVIEW OF SYSTEMS: Unable to obtain PHYSICAL EXAMINATION: GENERAL: Intubated sedated HEENT: Pupils are round and equally reacting to light. EOMI. No scleral icterus. No conjunctival pallor. Normocephalic, atraumatic. No pharyngeal erythema. No thyromegaly. CARDIOVASCULAR: S1 and S2 present. No murmurs, rubs, or gallops. PULMONARY: Chest is clear to auscultation, no wheezing or crackles. ABDOMEN: Soft, nontender, nondistended, normoactive bowel sounds. No palpable organomegaly. MUSCULOSKELETAL: No joint swelling or deformity. EXTREMITIES: No cyanosis, clubbing, or lateral lower extremity pedal edema NEUROLOGICAL: Patient is sedated does have brainstem reflexes SKIN: A blackish or on the surgical site area in any Assessment and plan -Acute hypoxic respiratory failure: Secondary to congestive heart failure patient may have had a myocardial infarction recently and may have led to ischemic cardiomyopathy. Patient is getting IV Lasix -Cardiorespiratory arrest: Secondary to most probably heart failure with low EF, echocardiogram is pending continued ventilatory support pressor support. -Cardiogenic shock: IV Lasix as mentioned above, cardiology consultation -Lactic acidosis secondary to hypoperfusion from cardiogenic shock so far there is no evidence of sepsis. -Chronic atrial fibrillation presently rate controlled and on Coumadin with INR of 2.9 continue with Coumadin as per pharmacy dose -Left knee arthroplasty at the surgical site wound doesn't appear to be infected next and hypertension next Type 2 diabetes mellitus: Will be on sliding scale insulin -Elevated troponins can be troponin leak secondary to cardio pulmonary arrest or CHF can be type I microinfarction that may have happened 3-4 days ago. Hypervolemic hyponatremia: IV Lasix as mentioned above -Obesity DVT prophylaxis: On anticoagulation Past Medical History Past Medical History: Atrial Fibrillation, Diabetes Mellitus, Hypertension Additional Past Medical History / Comment(s): cervical fx. History of Any Multi-Drug Resistant Organisms: None Reported Past Surgical History: Appendectomy Additional Past Surgical History / Comment(s): 2009 RUSSEL/cardioversion, colonoscopy, L knee arthroscopy. Past Anesthesia/Blood Transfusion Reactions: No Reported Reaction Smoking Status: Never smoker - Past Family History Mother Family Medical History: Cancer Additional Family Medical History / Comment(s): Mother had metastatic cancer. She at the age of 57yrs. Father Family Medical History: Myocardial Infarction ([place]) Additional Family Medical History / Comment(s): Father at the age of 63yrs of a GA. Medications and Allergies Home Medications Medication Instructions Recorded Confirmed Type Lisinopril-Hctz 20-12.5 mg 1 tab PO BID 02/05/17 01/28/22 History [Zestoretic 20-12.5] metFORMIN HCL [Glucophage] 1,000 mg PO BID 02/05/17 01/28/22 History glipiZIDE [Glucotrol] 10 mg PO AC-BID #60 tablet 02/08/17 01/28/22 Rx Cholecalciferol [Vitamin D3 (125 125 mcg PO BID 01/28/22 01/28/22 History Mcg = 5000 Iu)] Insulin Detemir [Levemir Flextouch 40 units SQ DAILY 01/28/22 01/28/22 History Pen] Metoprolol Tartrate [Lopressor] 25 mg PO DAILY 01/28/22 01/28/22 History Spironolactone 50 mg PO DAILY 01/28/22 01/28/22 History Warfarin Sodium [Jantoven] 5 mg PO [id number] 01/28/22 01/28/22 History Warfarin Sodium [Jantoven] 7.5 mg PO [place] 01/28/22 01/28/22 History Allergies Allergy/AdvReac Type Severity Reaction Status Date / Time No Known Allergies Allergy Verified 01/28/22 16:18 Physical Exam Vitals: Vital Signs Temp Pulse Resp BP Pulse Ox FiO2 04/15/23 11:50 56 L 20 106/60 96 04/15/23 11:40 57 L 20 110/63 96 04/15/23 11:39 56 L 04/15/23 11:30 50 L 20 107/62 97 04/15/23 11:20 60 20 106/63 96 04/15/23 11:13 50 04/15/23 11:10 56 L 20 104/67 97 04/15/23 11:00 54 L 20 101/62 96 04/15/23 10:50 56 L 20 106/61 96 04/15/23 10:40 62 20 105/59 96 04/15/23 10:30 60 20 103/60 96 04/15/23 10:20 64 20 105/62 97 04/15/23 10:10 60 23 109/64 98 04/15/23 10:00 59 L 11 L 103/58 97 04/15/23 09:51 50 04/15/23 09:50 61 23 101/67 98 04/15/23 09:40 57 L 25 H 102/49 98 04/15/23 09:34 100 04/15/23 09:30 64 22 101/90 99 04/15/23 09:20 61 20 95/82 98 04/15/23 09:08 100 04/15/23 08:20 100 04/15/23 06:08 77 18 129/80 95 04/15/23 04:56 70 18 111/78 98 04/15/23 03:36 78 20 111/68 97 04/14/23 23:18 98.2 F 74 18 117/69 94 L Intake and Output 04/14/23 04/15/23 04/15/23 22:59 06:59 14:59 Intake Total 71.252 Output Total 175 Balance -103.748 Intake: IV 20 0.9 KVO 20 Intake, IV Titration 51.252 Amount Norepinephrine 4 mg In 18.825 Sodium Chloride 0.9% 250 ml @ 0.03 MCG/KG/MIN 11. 147 mls/hr IV .[id number] [facility] Rx#:[id number] propofoL 1,000 mg In 32.427 Empty Bag 1 bag @ 15 MCG/ KG/MIN 8.777 mls/hr IV . [id number] [facility] Rx#:[id number] Output: Urine 175 Other: Weight 97.522 kg 97.5 kg Results CBC & Chem 7: 04/15/23 09:24 04/15/23 09:24 Labs: Abnormal Lab Results - Last 24 Hours (Table) 04/14/23 04/14/23 04/14/23 Range/Units 23:37 23:37 23:37 WBC 11.4 H (3.8-10.6) k/uL RBC (4.30-5.90) m/uL Hgb 9.1 L (13.0-17.5) gm/dL Hct 30.2 L (39.0-53.0) % MCV 69.1 L (80.0-100.0) fL MCH 20.8 L (25.0-35.0) pg MCHC 30.1 L (31.0-37.0) g/dL RDW 20.4 H (11.5-15.5) % Neutrophils # 8.6 H (1.3-7.7) k/uL PT 25.3 H (9.0-12.0) sec INR 2.6 H (<1.2) ABG pH (7.35-7.45) ABG pCO2 (35-45) mmHg ABG pO2 (83-108) mmHg ABG Total CO2 (19-24) mmol/L ABG O2 Saturation (94-97) % Sodium 130 L (137-145) mmol/L Chloride 93 L (98-107) mmol/L BUN 25 H (9-20) mg/dL Glucose (74-99) mg/dL POC Glucose (mg/dL) (70-110) mg/dL Plasma Lactic Acid Giovanny (0.7-2.0) mmol/L Phosphorus (2.5-4.5) mg/dL Alkaline Phosphatase 180 H (38-126) U/L Troponin I (0.000-0.034) ng/mL Total Protein 6.0 L (6.3-8.2) g/dL Albumin 3.0 L (3.5-5.0) g/dL Urine Protein (Negative) Urine Glucose (UA) (Negative) 04/14/23 04/14/23 04/15/23 Range/Units 23:37 23:37 03:36 WBC (3.8-10.6) k/uL RBC (4.30-5.90) m/uL Hgb (13.0-17.5) gm/dL Hct (39.0-53.0) % MCV (80.0-100.0) fL MCH (25.0-35.0) pg MCHC (31.0-37.0) g/dL RDW (11.5-15.5) % Neutrophils # (1.3-7.7) k/uL PT (9.0-12.0) sec INR (<1.2) ABG pH (7.35-7.45) ABG pCO2 (35-45) mmHg ABG pO2 (83-108) mmHg ABG Total CO2 (19-24) mmol/L ABG O2 Saturation (94-97) % Sodium (137-145) mmol/L Chloride (98-107) mmol/L BUN (9-20) mg/dL Glucose (74-99) mg/dL POC Glucose (mg/dL) (70-110) mg/dL Plasma Lactic Acid Giovanny 2.2 H* (0.7-2.0) mmol/L Phosphorus (2.5-4.5) mg/dL Alkaline Phosphatase (38-126) U/L Troponin I 0.057 H* (0.000-0.034) ng/mL Total Protein (6.3-8.2) g/dL Albumin (3.5-5.0) g/dL Urine Protein Trace H (Negative) Urine Glucose (UA) 4+ H (Negative) 04/15/23 04/15/23 04/15/23 Range/Units 06:08 08:28 08:35 WBC (3.8-10.6) k/uL RBC (4.30-5.90) m/uL Hgb (13.0-17.5) gm/dL Hct (39.0-53.0) % MCV (80.0-100.0) fL MCH (25.0-35.0) pg MCHC (31.0-37.0) g/dL RDW (11.5-15.5) % Neutrophils # (1.3-7.7) k/uL PT (9.0-12.0) sec INR (<1.2) ABG pH 7.30 L (7.35-7.45) ABG pCO2 50 H (35-45) mmHg ABG pO2 179 H (83-108) mmHg ABG Total CO2 26 H (19-24) mmol/L ABG O2 Saturation 100.0 H (94-97) % Sodium (137-145) mmol/L Chloride (98-107) mmol/L BUN (9-20) mg/dL Glucose (74-99) mg/dL POC Glucose (mg/dL) 194 H (70-110) mg/dL Plasma Lactic Acid Giovanny (0.7-2.0) mmol/L Phosphorus (2.5-4.5) mg/dL Alkaline Phosphatase (38-126) U/L Troponin I 0.042 H* (0.000-0.034) ng/mL Total Protein (6.3-8.2) g/dL Albumin (3.5-5.0) g/dL Urine Protein (Negative) Urine Glucose (UA) (Negative) 04/15/23 04/15/23 04/15/23 Range/Units 09:17 09:24 09:24 WBC 16.9 H (3.8-10.6) k/uL RBC 3.85 L (4.30-5.90) m/uL Hgb 8.2 L (13.0-17.5) gm/dL Hct 27.4 L (39.0-53.0) % MCV 71.1 L (80.0-100.0) fL MCH 21.3 L (25.0-35.0) pg MCHC 29.9 L (31.0-37.0) g/dL RDW 20.4 H (11.5-15.5) % Neutrophils # (1.3-7.7) k/uL PT 27.8 H (9.0-12.0) sec INR 2.9 H (<1.2) ABG pH (7.35-7.45) ABG pCO2 (35-45) mmHg ABG pO2 (83-108) mmHg ABG Total CO2 (19-24) mmol/L ABG O2 Saturation (94-97) % Sodium (137-145) mmol/L Chloride (98-107) mmol/L BUN (9-20) mg/dL Glucose (74-99) mg/dL POC Glucose (mg/dL) 202 H (70-110) mg/dL Plasma Lactic Acid Giovanny (0.7-2.0) mmol/L Phosphorus (2.5-4.5) mg/dL Alkaline Phosphatase (38-126) U/L Troponin I (0.000-0.034) ng/mL Total Protein (6.3-8.2) g/dL Albumin (3.5-5.0) g/dL Urine Protein (Negative) Urine Glucose (UA) (Negative) 04/15/23 04/15/23 04/15/23 Range/Units 09:24 09:24 09:27 WBC (3.8-10.6) k/uL RBC (4.30-5.90) m/uL Hgb (13.0-17.5) gm/dL Hct (39.0-53.0) % MCV (80.0-100.0) fL MCH (25.0-35.0) pg MCHC (31.0-37.0) g/dL RDW (11.5-15.5) % Neutrophils # (1.3-7.7) k/uL PT (9.0-12.0) sec INR (<1.2) ABG pH (7.35-7.45) ABG pCO2 (35-45) mmHg ABG pO2 (83-108) mmHg ABG Total CO2 (19-24) mmol/L ABG O2 Saturation (94-97) % Sodium 127 L (137-145) mmol/L Chloride 96 L (98-107) mmol/L BUN 27 H (9-20) mg/dL Glucose 176 H (74-99) mg/dL POC Glucose (mg/dL) (70-110) mg/dL Plasma Lactic Acid Giovanny 2.6 H* (0.7-2.0) mmol/L Phosphorus 4.7 H (2.5-4.5) mg/dL Alkaline Phosphatase (38-126) U/L Troponin I 0.044 H* (0.000-0.034) ng/mL Total Protein 5.2 L (6.3-8.2) g/dL Albumin 2.5 L (3.5-5.0) g/dL Urine Protein (Negative) Urine Glucose (UA) (Negative) 04/15/23 04/15/23 Range/Units 09:45 12:05 WBC (3.8-10.6) k/uL RBC (4.30-5.90) m/uL Hgb (13.0-17.5) gm/dL Hct (39.0-53.0) % MCV (80.0-100.0) fL MCH (25.0-35.0) pg MCHC (31.0-37.0) g/dL RDW (11.5-15.5) % Neutrophils # (1.3-7.7) k/uL PT (9.0-12.0) sec INR (<1.2) ABG pH (7.35-7.45) ABG pCO2 (35-45) mmHg ABG pO2 >400 H (83-108) mmHg ABG Total CO2 (19-24) mmol/L ABG O2 Saturation 100.0 H (94-97) % Sodium (137-145) mmol/L Chloride (98-107) mmol/L BUN (9-20) mg/dL Glucose (74-99) mg/dL POC Glucose (mg/dL) 206 H (70-110) mg/dL Plasma Lactic Acid Giovanny (0.7-2.0) mmol/L Phosphorus (2.5-4.5) mg/dL Alkaline Phosphatase (38-126) U/L Troponin I (0.000-0.034) ng/mL Total Protein (6.3-8.2) g/dL Albumin (3.5-5.0) g/dL Urine Protein (Negative) Urine Glucose (UA) (Negative)
[2023-04-15] MEDS ORDERED: CISATRACURIUM 2 MG/ML 5 ML VIAL IV ONE (13:11)
--- NOTE | 2023-04-15 13:21 | XR ---
EXAMINATION TYPE: XR chest 1V portable DATE OF EXAM: 04/15/2023 HISTORY: New central line COMPARISON: Same day TECHNIQUE: Single view of the chest is submitted. FINDINGS: Demonstrated are scattered senescent parenchymal change. Right IJ central venous line with its dista l tip overlying the SVC. No evidence for pneumothorax. The examination is otherwise stable. The heart is stable. Hilar and mediastinal structures are within normal limits. Degenerative changes are seen of the dorsal spine. IMPRESSION: 1. Right IJ central venous line with its distal tip overlying the SVC. No evidence for pneumothorax. The examination is otherwise stable.
--- NOTE | 2023-04-15 13:33 | P.PCN ---
Date of Procedure: 04/15/23 Preoperative Diagnosis: Acute hypoxic respiratory failure Postoperative Diagnosis: Acute hypoxic respiratory failure Procedure(s) Performed: Central line, arterial line Anesthesia: local Surgeon: Sukhdeep Do Estimated Blood Loss (ml): 0 Pathology: other Condition: critical Disposition: ICU Operative Findings: Central line Indication: Hemodynamic monitoring/Intravenous access. A time-out was completed verifying correct patient, procedure, site, positioning, and implant(s) or special equipment if applicable. The patient was placed in a dependent position appropriate for central line placement based on the vein to be cannulated. The patients left neck was prepped and draped in sterile fashion. 1% Lidocaine was used to anesthetize the surrounding skin area. A triple lumen 9F Cordis catheter was introduced into the left IJ vein using Seldinger technique. The catheter was threaded smoothly over the guide wire and appropriate blood return was obtained. Each lumen of the catheter was evacuated of air and flushed with sterile saline. The catheter was then sutured in place to the skin and a sterile dressing applied. Perfusion to the extremity distal to the point of catheter insertion was checked and found to be adequate. The patient tolerated the procedure well and there were no complications. Arterial line Indication: Hemodynamic monitoring. A time-out was completed verifying correct patient, procedure, site, positioning, and implant(s) or special equipment if applicable. Allens test was performed to ensure adequate perfusion. The patients left wrist was prepped and draped in sterile fashion. 1% Lidocaine was used to anesthetize the area. An 18G Arrow arterial line was introduced into the left radial artery. The catheter was threaded over the guide wire and the needle was removed with appropriate pulsatile blood return. Blood loss was minimal. The catheter was then sutured in place to the skin and a sterile dressing applied. Perfusion to the extremity distal to the point of catheter insertion was checked and found to be adequate. The patient tolerated the procedure well and there were no complications.
[2023-04-15] MEDS ORDERED: AMIODARONE 450 MG in DEXTROSE 5% IN WATER 250 ML IV SCH ×2 (15:00)
[2023-04-15] MEDS: PIPERACILLIN-TAZOBACTAM 3.375 GM in SODIUM CHLORIDE 0.9% 100 ML IVPB SCH (16:52)
[2023-04-15 17:37] LABS: Glucose,Whole Blood 209 mg/dL (70-110)
[2023-04-15 21:10] LABS: Magnesium 1.9 mg/dL (1.6-2.3); Phosphorus 4.6 mg/dL (2.5-4.5); Potassium 3.8 mmol/L (3.5-5.1)
[2023-04-15] MEDS ORDERED: Potassium Replacement Protocol 1 EACH MISC MISCELLANE PRN (21:23)
[2023-04-15] MEDS ORDERED: MAGNESIUM SULFATE-D5W PMX 1 GM in DEXTROSE/WATER 1 100ML.BAG IVPB ONE (21:24)
[2023-04-15] MEDS ORDERED: Magnesium Replacement Protocol 1 EACH MISC MISCELLANE PRN (21:24)
[2023-04-15] MEDS: FUROSEMIDE 10 MG/ML 4 ML VIAL IV SCH (21:37)
[2023-04-15] MEDS: CHLORHEXIDINE GLUCONATE 15 ML CUP MUCOUS MEM SCH (21:37)
[2023-04-15] MEDS ORDERED: POTASSIUM BICARBONATE/CIT AC 20 MEQ TABLET.EFF NG-TUBE SCH (22:00)
[2023-04-16] MEDS ORDERED: VANCOMYCIN 1,750 MG in SODIUM CHLORIDE 0.9% 500 ML 500 ML IVPB SCH ×2
[2023-04-16 00:08] LABS: Glucose,Whole Blood 299 mg/dL (70-110)
[2023-04-16] MEDS: PIPERACILLIN-TAZOBACTAM 3.375 GM in SODIUM CHLORIDE 0.9% 100 ML IVPB SCH ×3 (00:25→17:39)
[2023-04-16] MEDS: INSULIN ASPART (NovoLOG) 100 UNIT/ML VIAL SQ SCH ×4 (00:25→17:39)
[2023-04-16] MEDS: IPRATROPIUM-ALBUTEROL 3 ML NEB INHALATION SCH ×6 (04:27→23:35)
[2023-04-16 05:28] LABS: Anisocytosis Moderate; Basophils % (A) 0 %; Eosinophils % (A) 0 %; HCT 28.9 % (39.0-53.0); HGB 8.7 gm/dL (13.0-17.5); Hypochromasia Marked; Lymphocytes # (A) 1.1 k/uL (1.0-4.8); Lymphocytes % (A) 11 %; MCHC 30.3 g/dL (31.0-37.0); MCV 69.4 fL (80.0-100.0); Mean Platelet Volume 7.4; Microcytosis Marked; Monocytes # (A) 0.8 k/uL (0-1.0); Monocytes % (A) 8 %; Neutrophils # (A) 7.9 k/uL (1.3-7.7); Neutrophils % (A) 79 %; Platelet Count 310 k/uL (150-450); Poikilocytosis Slight; RBC 4.16 m/uL (4.30-5.90); RDW 20.9 % (11.5-15.5)
[2023-04-16] MEDS: NOREPINEPHRINE 4 MG in SODIUM CHLORIDE 0.9% 250 ML IV SCH ×2 (05:31→17:42)
[2023-04-16 05:38] LABS: INR 1.6 (<1.2); Prothrombin Time 15.9 sec (9.0-12.0)
[2023-04-16 05:48] LABS: African American GFR (CKD) 88 (>60 ml/min/1.73 sqM); Anion Gap 8 mmol/L; Blood Urea Nitrogen 28 mg/dL (9-20); Calcium 8.6 mg/dL (8.4-10.2); Carbon Dioxide 27 mmol/L (22-30); Chloride 99 mmol/L (98-107); Glucose 178 mg/dL (74-99); Non-African American GFR(CKD) 76 (>60 ml/min/1.73 sqM); Potassium 3.9 mmol/L (3.5-5.1); Sodium 134 mmol/L (137-145)
[2023-04-16 05:52] LABS: ABG Base Excess 5.4 mmol/L; ABG HCO3 29 mmol/L (21-25); ABG PCO2 38 mmHg (35-45); ABG PH 7.49 (7.35-7.45); ABG PO2 176 mmHg (83-108); ABG TCO2 30 mmol/L (19-24); Allen Test Performed? Yes
[2023-04-16] MEDS ORDERED: AZITHROMYCIN 500 MG TAB PO SCH (06:15)
[2023-04-16 06:18] LABS: Glucose,Whole Blood 202 mg/dL (70-110)
--- NOTE | 2023-04-16 06:52 | XR ---
EXAMINATION TYPE: XR chest 1V portable DATE OF EXAM: 04/16/2023 5:33 AM COMPARISON: Chest radiographs from 04/15/2023 TECHNIQUE: XR chest 1V portable Portable AP radiograph of the chest. CLINICAL INDICATION:Male, 82 years old with history of Tube placement; FINDINGS: Lungs/Pleura: No pneumothorax. Blunting of both costophrenic angles with bibasilar patchy airspace op acities most consistent with atelectasis. Pulmonary vascularity: Mild pulmonary vascular congestion. Heart/mediastinum: Cardiomediastinal silhouette is enlarged and stable. Atherosclerotic calcificatio ns are seen in the aorta. Musculoskeletal: No acute osseous pathology. Other findings: None Lines/Tubes: Endotracheal tube with distal tip 3.8 cm above the areli Nasogastric tube with its distal tip and side-port projecting under the diaphragm. Right internal jugular central venous catheter with distal tip at the cavoatrial junction. IMPRESSION: 1. Stable support lines and tubes. 2. Cardiomegaly, pulmonary vascular congestion and small bilateral pleural effusions. Correlate with BNP for congestive heart failure.
[2023-04-16] MEDS ORDERED: POTASSIUM BICARBONATE/CIT AC 20 MEQ TABLET.EFF NG-TUBE SCH (08:00)
[2023-04-16] MEDS: AZITHROMYCIN 500 MG TAB PO SCH (09:27)
[2023-04-16] MEDS: CHLORHEXIDINE GLUCONATE 15 ML CUP MUCOUS MEM SCH ×2 (09:27→20:35)
[2023-04-16] MEDS: PANTOPRAZOLE 40 MG/10 ML VIAL IVP SCH (09:27)
[2023-04-16] MEDS: METOPROLOL TARTRATE 25 MG TAB PO SCH ×2 (09:27→21:39)
[2023-04-16] MEDS: SODIUM CHLORIDE 0.9% 1,000 ML IV SCH (09:28)
[2023-04-16] MEDS: FUROSEMIDE 10 MG/ML 4 ML VIAL IV SCH ×2 (09:28→20:35)
--- NOTE | 2023-04-16 09:56 | P.PN ---
Subjective History of Present Illness: The patient is an 82-year-old male with known history of hypertension, diabetes, chronic persistent atrial fibrillation who has underwent recent left total knee arthroplasty and presented with symptoms of progressive dyspnea. In the emergency room he became more dyspneic, hypotensive, had what appears to be according to the staff atrial fibrillation with wide complex, was intubated and received a bolus of amiodarone. He is seen in the ICU. He is in atrial fibrillation was controlled ventricle response. He has significant edema on presentation. Chest x-ray showed probable CHF and his CT angiogram showed no pu lmonary embolism with right-sided effusion with possible atelectasis. No other history is available. Medications: Metformin, Coumadin, Glucotrol, spironolactone, metoprolol, lisinopril HCTZ, insulin 04/16 Patient seen and examined. Patient remains on ventilator with FiO2 40% and remains unresponsive on ventilator. Has been receiving IV Lasix with good urine output. Creatinine has been stable at 1.0. Still does have 2+ lower extremity edema. Echocardiogram performed today however pending results. Remains in A. fib with controlled heart rates. On low-dose norepinephrine however receiving beta brody. Physical Examination: Vitals reviewed Head: Normocephalic. Eyes: Sclerae nonicteric. Neck: Good carotid upstroke, no bruit, no jugular venous distention. Lungs: Decreased breath sounds at the bases Heart: Irregular rate and rhythm, S1-S2, no S3, no rub. Systolic ejection murmur. Abdomen: Soft, positive bowel sounds no organomegaly. Extremities: +2 edema, intact distal pulses. Karli left knee Impression: 1. Respiratory failure with evidence to suggest CHF, baseline systolic function is not available 2. Chronic persistent atrial fibrillation, anticoagulated 3. Status post recent knee surgery 4. History of hypertension 5. History of diabetes 6. Mild troponin elevation, type II myocardial infarction, no evidence of acute ischemic event 7. Cardiac arrest with some wide complex rhythm, not requiring any cardioversion and brief CPR, unclear pulmonary vs respiratory arrest Plan: Await 2-D echo. Continues to be in A. fib. INR subtherapeutic at 1.6. Continue with beta brody and attempt to wean norepinephrine as able. No significant cardiac arrhythmias noted over last 24 hrs. Does appear to have volume overload and continue to Lasix. Coumadin with goal INR 2-3. Objective - Vital Signs Vital signs: Vital Signs Temp 97.9 F 04/16/23 08:00 Pulse 59 L 04/16/23 09:00 Resp 20 04/16/23 09:00 BP 113/71 04/16/23 05:45 Pulse Ox 96 04/16/23 09:00 FiO2 40 04/16/23 08:00 Intake & Output 04/15/23 04/16/23 04/16/23 18:59 06:59 18:59 Intake Total 141.408 4000.560 187.523 Output Total 3150 3015 120 Balance -2524.812 -1937.440 67.523 Weight 119.8 kg Intake: IV 275 535 90 0.9 KVO 200 310 90 Magnesium Sulfate-D5w Pmx 100 1 gm In Dextrose/Water 1 100ml.bag @ 100 mls/hr IVPB ONCE ONE Rx#: [id number] Piperacillin-Tazobactam 3 75 125 .375 gm In Sodium Chloride 0.9% 100 ml @ 25 mls/hr IVPB Q8HR [facility] Rx# :[id number] Intake, IV Titration 350.188 542.560 97.523 Amount Norepinephrine 4 mg In 197.916 292.765 Sodium Chloride 0.9% 250 ml @ 0.03 MCG/KG/MIN 11. 147 mls/hr IV .[id number] [facility] Rx#:[id number] propofoL 1,000 mg In 152.272 249.795 97.523 Empty Bag 1 bag @ 15 MCG/ KG/MIN 8.777 mls/hr IV . [id number] [facility] Rx#:[id number] Output: Gastric Drainage 1050 Urine 3150 1965 120 Other: Voiding Method Indwelling Catheter Indwelling Catheter ABP, PAP, CO, CI - Last Documented Arterial Blood Pressure 76/59 - Labs CBC & Chem 7: 04/16/23 05:00 04/16/23 05:00 Labs: Abnormal Lab Results - Last 24 Hours (Table) 04/15/23 04/15/23 04/15/23 Range/Units 09:24 09:24 09:24 WBC 16.9 H (3.8-10.6) k/uL RBC 3.85 L (4.30-5.90) m/uL Hgb 8.2 L (13.0-17.5) gm/dL Hct 27.4 L (39.0-53.0) % MCV 71.1 L (80.0-100.0) fL MCH 21.3 L (25.0-35.0) pg MCHC 29.9 L (31.0-37.0) g/dL RDW 20.4 H (11.5-15.5) % Neutrophils # (1.3-7.7) k/uL PT 27.8 H (9.0-12.0) sec INR 2.9 H (<1.2) ABG pH (7.35-7.45) ABG pO2 (83-108) mmHg ABG HCO3 (21-25) mmol/L ABG Total CO2 (19-24) mmol/L ABG O2 Saturation (94-97) % Sodium 127 L (137-145) mmol/L Chloride 96 L (98-107) mmol/L BUN 27 H (9-20) mg/dL Glucose 176 H (74-99) mg/dL POC Glucose (mg/dL) (70-110) mg/dL Plasma Lactic Acid Giovanny (0.7-2.0) mmol/L Phosphorus 4.7 H (2.5-4.5) mg/dL Troponin I (0.000-0.034) ng/mL Total Protein 5.2 L (6.3-8.2) g/dL Albumin 2.5 L (3.5-5.0) g/dL 04/15/23 04/15/23 04/15/23 Range/Units 09:24 09:27 09:45 WBC (3.8-10.6) k/uL RBC (4.30-5.90) m/uL Hgb (13.0-17.5) gm/dL Hct (39.0-53.0) % MCV (80.0-100.0) fL MCH (25.0-35.0) pg MCHC (31.0-37.0) g/dL RDW (11.5-15.5) % Neutrophils # (1.3-7.7) k/uL PT (9.0-12.0) sec INR (<1.2) ABG pH (7.35-7.45) ABG pO2 >400 H (83-108) mmHg ABG HCO3 (21-25) mmol/L ABG Total CO2 (19-24) mmol/L ABG O2 Saturation 100.0 H (94-97) % Sodium (137-145) mmol/L Chloride (98-107) mmol/L BUN (9-20) mg/dL Glucose (74-99) mg/dL POC Glucose (mg/dL) (70-110) mg/dL Plasma Lactic Acid Giovanny 2.6 H* (0.7-2.0) mmol/L Phosphorus (2.5-4.5) mg/dL Troponin I 0.044 H* (0.000-0.034) ng/mL Total Protein (6.3-8.2) g/dL Albumin (3.5-5.0) g/dL 04/15/23 04/15/23 04/15/23 Range/Units 12:05 17:35 20:33 WBC (3.8-10.6) k/uL RBC (4.30-5.90) m/uL Hgb (13.0-17.5) gm/dL Hct (39.0-53.0) % MCV (80.0-100.0) fL MCH (25.0-35.0) pg MCHC (31.0-37.0) g/dL RDW (11.5-15.5) % Neutrophils # (1.3-7.7) k/uL PT (9.0-12.0) sec INR (<1.2) ABG pH (7.35-7.45) ABG pO2 (83-108) mmHg ABG HCO3 (21-25) mmol/L ABG Total CO2 (19-24) mmol/L ABG O2 Saturation (94-97) % Sodium (137-145) mmol/L Chloride (98-107) mmol/L BUN (9-20) mg/dL Glucose (74-99) mg/dL POC Glucose (mg/dL) 206 H 209 H (70-110) mg/dL Plasma Lactic Acid Giovanny (0.7-2.0) mmol/L Phosphorus 4.6 H (2.5-4.5) mg/dL Troponin I (0.000-0.034) ng/mL Total Protein (6.3-8.2) g/dL Albumin (3.5-5.0) g/dL 04/16/23 04/16/23 04/16/23 Range/Units 00:07 05:00 05:00 WBC (3.8-10.6) k/uL RBC 4.16 L (4.30-5.90) m/uL Hgb 8.7 L (13.0-17.5) gm/dL Hct 28.9 L (39.0-53.0) % MCV 69.4 L (80.0-100.0) fL MCH 21.0 L (25.0-35.0) pg MCHC 30.3 L (31.0-37.0) g/dL RDW 20.9 H (11.5-15.5) % Neutrophils # 7.9 H (1.3-7.7) k/uL PT (9.0-12.0) sec INR (<1.2) ABG pH (7.35-7.45) ABG pO2 (83-108) mmHg ABG HCO3 (21-25) mmol/L ABG Total CO2 (19-24) mmol/L ABG O2 Saturation (94-97) % Sodium 134 L (137-145) mmol/L Chloride (98-107) mmol/L BUN 28 H (9-20) mg/dL Glucose 178 H (74-99) mg/dL POC Glucose (mg/dL) 299 H (70-110) mg/dL Plasma Lactic Acid Giovanny (0.7-2.0) mmol/L Phosphorus (2.5-4.5) mg/dL Troponin I (0.000-0.034) ng/mL Total Protein (6.3-8.2) g/dL Albumin (3.5-5.0) g/dL 04/16/23 04/16/23 04/16/23 Range/Units 05:00 05:48 06:16 WBC (3.8-10.6) k/uL RBC (4.30-5.90) m/uL Hgb (13.0-17.5) gm/dL Hct (39.0-53.0) % MCV (80.0-100.0) fL MCH (25.0-35.0) pg MCHC (31.0-37.0) g/dL RDW (11.5-15.5) % Neutrophils # (1.3-7.7) k/uL PT 15.9 H (9.0-12.0) sec INR 1.6 H (<1.2) ABG pH 7.49 H (7.35-7.45) ABG pO2 176 H (83-108) mmHg ABG HCO3 29 H (21-25) mmol/L ABG Total CO2 30 H (19-24) mmol/L ABG O2 Saturation 100.0 H (94-97) % Sodium (137-145) mmol/L Chloride (98-107) mmol/L BUN (9-20) mg/dL Glucose (74-99) mg/dL POC Glucose (mg/dL) 202 H (70-110) mg/dL Plasma Lactic Acid Giovanny (0.7-2.0) mmol/L Phosphorus (2.5-4.5) mg/dL Troponin I (0.000-0.034) ng/mL Total Protein (6.3-8.2) g/dL Albumin (3.5-5.0) g/dL Microbiology - Last 24 Hours (Table) 04/15/23 10:05 Gram Stain - Preliminary Sputum
--- NOTE | 2023-04-16 11:24 | P.CNNES ---
History of Present Illness Consult date: 04/16/23 Requesting physician: Elo Lackey Reason for Consult: ams, cardiac arrest History of Present Illness: This is an 82-year-old gentleman who presented emergency department because shortness of breath. Neurology is consulted for altered mental status post cardiac arrest. History was obtained from medical records as well as ICU N.P. per medical record is seems the patient has history of chronic atrial fibrillation, diabetes hypertension and the head and recent left total knee replacement outside facility and she presented that for shortness of breath which progressively got worse and supposedly had a cardiac arrest number facility in which the patient received a total of the CPR for 3 minutes and her cardiac rhythm was PA and the patient had no pulse and the patient EKG showed wide complexes apical rhythm with underlying atrial fibrillation and the patient subsequently has a return of spontaneous circulation patient was intubated in the emergency and was sent to the ICU. Patient cardiac arrest happened the in our facility according to the nurse. Seems the patient received magnesium, amiodarone. Also the patient had bouts of hypotensive upon the starting propofol. According to the nurse the patient was on IV propofol 50mcg/kg/hr and has stopped shortly and she felt he was responding to her. Some of the workup during this hospital visit consisted of Initial sodium was 1:30 then a got as low as 127 currently is 134. Serum glucose initially was 95 at most current one is 178. Calcium is within normal limits. Magnesium is within normal limits. Review of Systems Review of system is limited with apparent positive and negative as per HPI. Past Medical History Past Medical History: Atrial Fibrillation, Diabetes Mellitus, Hypertension Additional Past Medical History / Comment(s): cervical fx. History of Any Multi-Drug Resistant Organisms: None Reported Past Surgical History: Appendectomy Additional Past Surgical History / Comment(s): 2009 RUSSEL/cardioversion, colonoscopy, L knee arthroscopy. Past Anesthesia/Blood Transfusion Reactions: No Reported Reaction Past Psychological History: No Psychological Hx Reported Smoking Status: Never smoker Past Alcohol Use History: None Reported Past Drug Use History: None Reported - Past Family History Mother Family Medical History: Cancer Additional Family Medical History / Comment(s): Mother had metastatic cancer. She at the age of 57yrs. Father Family Medical History: Myocardial Infarction ([place]) Additional Family Medical History / Comment(s): Father at the age of 63yrs of a MN. Medications and Allergies Home Medications Medication Instructions Recorded Confirmed Type Lisinopril-Hctz 20-12.5 mg 1 tab PO BID 02/05/17 04/15/23 History [Zestoretic 20-12.5] metFORMIN HCL [Glucophage] 1,000 mg PO BID 02/05/17 04/15/23 History Metoprolol Tartrate [Lopressor] 25 mg PO DAILY 01/28/22 04/15/23 History Warfarin Sodium [Jantoven] 5 mg PO DAILY 01/28/22 04/16/23 History Furosemide [Lasix] 20 mg PO DAILY PRN 04/15/23 04/15/23 History Insulin Aspart Prot/Insuln Asp 50 unit SQ BID-W/MEALS 04/15/23 04/15/23 History [Novolog MIX 70-30 Flexpen] Omeprazole 40 mg PO DAILY 04/15/23 04/15/23 History Tamsulosin [Flomax] 0.4 mg PO BID 04/15/23 04/15/23 History traMADol HCL 50 mg PO Q4H PRN 04/15/23 04/15/23 History Allergies Allergy/AdvReac Type Severity Reaction Status Date / Time No Known Allergies Allergy Verified 01/28/22 16:18 Physical Examination - Vital Signs Vital Signs: Vital Signs Temp Pulse Resp BP Pulse Ox FiO2 04/16/23 11:00 64 20 96 04/16/23 10:45 77 11 L 96 04/16/23 10:35 40 04/16/23 10:30 65 16 97 04/16/23 10:15 67 13 96 04/16/23 10:00 60 20 96 04/16/23 09:45 67 20 95 04/16/23 09:30 69 20 96 04/16/23 09:15 63 20 97 04/16/23 09:00 59 L 20 96 04/16/23 08:45 70 20 97 04/16/23 08:30 65 20 97 04/16/23 08:15 62 20 97 04/16/23 08:00 97.9 F 63 20 98 40 04/16/23 07:47 65 04/16/23 07:45 63 20 96 40 04/16/23 07:30 57 L 20 96 04/16/23 07:15 64 20 96 04/16/23 07:00 60 20 96 04/16/23 06:45 56 L 15 96 04/16/23 06:30 57 L 20 95 04/16/23 06:15 64 20 95 04/16/23 06:03 96 40 04/16/23 06:00 56 L 20 95 04/16/23 05:54 40 04/16/23 05:45 63 20 113/71 97 04/16/23 05:30 56 L 20 97 04/16/23 05:15 63 20 97 04/16/23 05:00 56 L 20 96 04/16/23 04:45 56 L 20 96 04/16/23 04:38 61 04/16/23 04:30 56 L 21 97 04/16/23 04:27 59 L 04/16/23 04:26 50 04/16/23 04:15 61 20 97 04/16/23 04:00 97 F L 60 20 96 50 04/16/23 03:45 63 16 96 04/16/23 03:30 64 21 96 04/16/23 03:18 50 04/16/23 03:15 58 L 16 96 04/16/23 03:00 56 L 20 113/71 96 04/16/23 02:45 58 L 20 113/71 96 04/16/23 02:30 58 L 20 96 04/16/23 02:15 58 L 20 96 04/16/23 02:00 65 20 96 04/16/23 01:45 59 L 21 96 04/16/23 01:30 62 20 96 04/16/23 01:15 60 20 95 04/16/23 01:00 62 20 96 04/16/23 00:45 65 13 113/71 98 04/16/23 00:30 60 14 113/71 98 04/16/23 00:15 60 20 98 04/16/23 00:01 62 04/16/23 00:00 97.6 F 64 20 97 50 04/15/23 23:49 61 04/15/23 23:47 50 04/15/23 23:45 55 L 20 98 04/15/23 23:30 56 L 20 98 04/15/23 23:15 62 20 98 04/15/23 23:10 50 04/15/23 23:07 56 L 21 98 04/15/23 23:00 66 20 97 04/15/23 22:45 77 9 L 98 04/15/23 22:30 58 L 20 98 04/15/23 22:15 66 20 98 04/15/23 22:00 74 20 97 04/15/23 21:45 68 20 97 04/15/23 21:30 62 20 97 04/15/23 21:15 53 L 20 96 04/15/23 21:00 60 20 97 04/15/23 20:45 53 L 20 98 04/15/23 20:44 61 04/15/23 20:30 65 20 98 50 04/15/23 20:15 55 L 20 97 04/15/23 20:00 97.5 F L 65 16 96 50 04/15/23 19:45 54 L 16 97 04/15/23 19:30 75 16 96 04/15/23 19:15 62 20 96 04/15/23 19:00 55 L 21 114/62 96 04/15/23 18:45 58 L 21 111/63 97 04/15/23 18:30 56 L 20 113/65 97 04/15/23 18:15 56 L 20 113/64 97 04/15/23 18:00 56 L 20 113/61 96 04/15/23 17:45 58 L 21 116/65 96 04/15/23 17:30 49 L 20 110/63 96 04/15/23 17:15 64 20 112/66 96 04/15/23 17:00 54 L 20 105/61 96 04/15/23 16:45 52 L 20 111/62 96 04/15/23 16:30 58 L 20 113/64 97 04/15/23 16:15 59 L 20 115/62 97 04/15/23 16:00 54 L 20 114/61 97 50 04/15/23 15:45 61 20 120/68 96 04/15/23 15:39 62 04/15/23 15:30 60 22 119/64 97 04/15/23 15:29 64 04/15/23 15:25 50 04/15/23 15:15 51 L 20 117/68 96 04/15/23 15:00 61 20 116/64 96 04/15/23 14:45 53 L 20 111/70 96 04/15/23 14:30 54 L 20 106/58 96 04/15/23 14:15 55 L 20 103/56 95 04/15/23 14:00 56 L 20 109/61 95 04/15/23 13:45 58 L 20 116/64 95 04/15/23 13:30 64 20 105/60 96 04/15/23 13:15 58 L 20 106/68 96 04/15/23 13:00 63 20 96/53 91 L 04/15/23 12:45 54 L 20 110/65 96 04/15/23 12:30 54 L 20 109/63 96 04/15/23 12:15 55 L 20 104/64 96 04/15/23 12:00 97.5 F L 62 20 104/56 96 50 04/15/23 11:50 56 L 20 106/60 96 04/15/23 11:40 57 L 20 110/63 96 04/15/23 11:39 56 L 04/15/23 11:30 50 L 20 107/62 97 04/15/23 11:20 60 20 106/63 96 04/15/23 11:13 50 04/15/23 11:10 56 L 20 104/67 97 Intake and Output 04/15/23 04/16/23 04/16/23 22:59 06:59 14:59 Intake Total 592.740 646.736 527.076 Output Total 2775 1490 820 Balance -2182.260 -843.264 -292.924 Intake: IV 350 320 210 0.9 KVO 150 220 110 Magnesium Sulfate-D5w Pmx 100 1 gm In Dextrose/Water 1 100ml.bag @ 100 mls/hr IVPB ONCE ONE Rx#: [id number] Piperacillin-Tazobactam 3 100 100 100 .375 gm In Sodium Chloride 0.9% 100 ml @ 25 mls/hr IVPB Q8HR FORMERLY [facility], 1928–1983 Rx# :[id number] Intake, IV Titration 242.740 326.736 317.076 Amount Norepinephrine 4 mg In 113.922 178.843 144.412 Sodium Chloride 0.9% 250 ml @ 0.03 MCG/KG/MIN 11. 147 mls/hr IV .[id number] FOR[facility]LY [facility], 1928–1983 Rx#:[id number] propofoL 1,000 mg In 128.818 147.893 172.664 Empty Bag 1 bag @ 15 MCG/ KG/MIN 8.777 mls/hr IV . [id number] FOR[facility]LY [facility], 1928–1983 Rx#:[id number] Output: Gastric Drainage 1050 Urine 1725 1490 820 Other: Voiding Method Indwelling Catheter Indwelling Catheter Indwelling Catheter ABP, PAP, CO, CI - Last 8 Hours Arterial Blood Pressure 108/48 Arterial Blood Pressure 117/52 Arterial Blood Pressure 101/43 Arterial Blood Pressure 111/49 Arterial Blood Pressure 119/52 Arterial Blood Pressure 119/67 Arterial Blood Pressure 108/49 Arterial Blood Pressure 109/51 Arterial Blood Pressure 76/59 Arterial Blood Pressure 110/62 Arterial Blood Pressure 112/56 Arterial Blood Pressure 116/57 Arterial Blood Pressure 126/61 Arterial Blood Pressure 120/56 Arterial Blood Pressure 107/56 Arterial Blood Pressure 110/54 Arterial Blood Pressure 113/52 Arterial Blood Pressure 112/52 Arterial Blood Pressure 108/53 Arterial Blood Pressure 105/50 Arterial Blood Pressure 105/50 Arterial Blood Pressure 119/56 Arterial Blood Pressure 114/55 Arterial Blood Pressure 96/46 Arterial Blood Pressure 100/77 Arterial Blood Pressure 105/55 Arterial Blood Pressure 98/49 Arterial Blood Pressure 106/54 Arterial Blood Pressure 111/53 Arterial Blood Pressure 102/48 GENERAL: The patient is lying in bed and does not appear in acute distress. LUNG: Intubated on ventilator. Not labored breathing. NEUROLOGICAL: Limited since patient is intubated on vent and was on IV Propofol 50mcg/kg/min that was shortly held. Higher mental function: Patient is mildy drowsy but is awakeable to voice. He is follow one simple commands and that is thumbs up. He seems restless and wants the tube out. Cranial nerves: The pupils are round, equal and reactive to light. Tracking throughout the room. No facial weakness. Is breathing over the vent. a Motor: The strength is limited but lifting bilateral uppers on hown. Normal tone and bulk. Cerebellum: Unable to assess. Sensation: Unable to assess. Reflexes (right/left):2+. Plantars are mute bilaterally. Results - Laboratory Findings CBC and BMP: 04/16/23 05:00 04/16/23 05:00 Abnormal Lab Findings: Abnormal Labs 04/14/23 04/14/23 04/14/23 23:37 23:37 23:37 WBC 11.4 H RBC Hgb 9.1 L Hct 30.2 L MCV 69.1 L MCH 20.8 L MCHC 30.1 L RDW 20.4 H Neutrophils # 8.6 H PT 25.3 H INR 2.6 H ABG pH ABG pCO2 ABG pO2 ABG HCO3 ABG Total CO2 ABG O2 Saturation Sodium 130 L Chloride 93 L BUN 25 H Glucose POC Glucose (mg/dL) Plasma Lactic Acid Giovanny Phosphorus Alkaline Phosphatase 180 H Troponin I Total Protein 6.0 L Albumin 3.0 L Urine Protein Urine Glucose (UA) 04/14/23 04/14/23 04/15/23 23:37 23:37 03:36 WBC RBC Hgb Hct MCV MCH MCHC RDW Neutrophils # PT INR ABG pH ABG pCO2 ABG pO2 ABG HCO3 ABG Total CO2 ABG O2 Saturation Sodium Chloride BUN Glucose POC Glucose (mg/dL) Plasma Lactic Acid Giovanny 2.2 H* Phosphorus Alkaline Phosphatase Troponin I 0.057 H* Total Protein Albumin Urine Protein Trace H Urine Glucose (UA) 4+ H 04/15/23 04/15/23 04/15/23 06:08 08:28 08:35 WBC RBC Hgb Hct MCV MCH MCHC RDW Neutrophils # PT INR ABG pH 7.30 L ABG pCO2 50 H ABG pO2 179 H ABG HCO3 ABG Total CO2 26 H ABG O2 Saturation 100.0 H Sodium Chloride BUN Glucose POC Glucose (mg/dL) 194 H Plasma Lactic Acid Giovanny Phosphorus Alkaline Phosphatase Troponin I 0.042 H* Total Protein Albumin Urine Protein Urine Glucose (UA) 04/15/23 04/15/23 04/15/23 09:17 09:24 09:24 WBC 16.9 H RBC 3.85 L Hgb 8.2 L Hct 27.4 L MCV 71.1 L MCH 21.3 L MCHC 29.9 L RDW 20.4 H Neutrophils # PT 27.8 H INR 2.9 H ABG pH ABG pCO2 ABG pO2 ABG HCO3 ABG Total CO2 ABG O2 Saturation Sodium Chloride BUN Glucose POC Glucose (mg/dL) 202 H Plasma Lactic Acid Giovanny Phosphorus Alkaline Phosphatase Troponin I Total Protein Albumin Urine Protein Urine Glucose (UA) 04/15/23 04/15/23 04/15/23 09:24 09:24 09:27 WBC RBC Hgb Hct MCV MCH MCHC RDW Neutrophils # PT INR ABG pH ABG pCO2 ABG pO2 ABG HCO3 ABG Total CO2 ABG O2 Saturation Sodium 127 L Chloride 96 L BUN 27 H Glucose 176 H POC Glucose (mg/dL) Plasma Lactic Acid Giovanny 2.6 H* Phosphorus 4.7 H Alkaline Phosphatase Troponin I 0.044 H* Total Protein 5.2 L Albumin 2.5 L Urine Protein Urine Glucose (UA) 04/15/23 04/15/23 04/15/23 09:45 12:05 17:35 WBC RBC Hgb Hct MCV MCH MCHC RDW Neutrophils # PT INR ABG pH ABG pCO2 ABG pO2 >400 H ABG HCO3 ABG Total CO2 ABG O2 Saturation 100.0 H Sodium Chloride BUN Glucose POC Glucose (mg/dL) 206 H 209 H Plasma Lactic Acid Giovanny Phosphorus Alkaline Phosphatase Troponin I Total Protein Albumin Urine Protein Urine Glucose (UA) 04/15/23 04/16/23 04/16/23 20:33 00:07 05:00 WBC RBC 4.16 L Hgb 8.7 L Hct 28.9 L MCV 69.4 L MCH 21.0 L MCHC 30.3 L RDW 20.9 H Neutrophils # 7.9 H PT INR ABG pH ABG pCO2 ABG pO2 ABG HCO3 ABG Total CO2 ABG O2 Saturation Sodium Chloride BUN Glucose POC Glucose (mg/dL) 299 H Plasma Lactic Acid Giovanny Phosphorus 4.6 H Alkaline Phosphatase Troponin I Total Protein Albumin Urine Protein Urine Glucose (UA) 04/16/23 04/16/23 04/16/23 05:00 05:00 05:48 WBC RBC Hgb Hct MCV MCH MCHC RDW Neutrophils # PT 15.9 H INR 1.6 H ABG pH 7.49 H ABG pCO2 ABG pO2 176 H ABG HCO3 29 H ABG Total CO2 30 H ABG O2 Saturation 100.0 H Sodium 134 L Chloride BUN 28 H Glucose 178 H POC Glucose (mg/dL) Plasma Lactic Acid Giovanny Phosphorus Alkaline Phosphatase Troponin I Total Protein Albumin Urine Protein Urine Glucose (UA) 04/16/23 06:16 WBC RBC Hgb Hct MCV MCH MCHC RDW Neutrophils # PT INR ABG pH ABG pCO2 ABG pO2 ABG HCO3 ABG Total CO2 ABG O2 Saturation Sodium Chloride BUN Glucose POC Glucose (mg/dL) 202 H Plasma Lactic Acid Giovanny Phosphorus Alkaline Phosphatase Troponin I Total Protein Albumin Urine Protein Urine Glucose (UA) Assessment and Plan Assessment: Acute cardiopulmonary arrest most likely pulmonary followed by cardiac event and he was down for 3 minutes and was in PEA. Encephalopathy due to above as well as due to medication effect (Propofol)--currently following minimal simple commands Acute hypoxic respiratory failure patient is intubated on ventilator Moderate sized bilateral pleural effusion Chronic atrial fibrillation on Coumadin. INR is 2.6 on presentation. Recent left knee arthroplasty Diabetes mellitus Hypertension Osteoarthritis Plan: I ordered CT of the head w/o to rule out any central insult as result of his brief cardiac arrest. If the patient continues to be altered we'll pursue with EEG. Currently the patient is restless and unable to perform EEG at this time. Ordered ammonia level. We'll defer the rest of the medical management to the primary and ICU team. Cardiology is on board Patient condition is very guarded Plan discussed with the patient nurse Thank you for the consultation. Time with Patient: Greater than 30
[2023-04-16 11:30] LABS: Glucose,Whole Blood 192 mg/dL (70-110)
--- NOTE | 2023-04-16 12:30 | CA ---
Transthoracic Echo Report Name: Oziel Cole Age: 82 Gender: M : 1940 Exam Date: 04/16/2023 07:47 Exam Location: [facility] Ht (in): 72 Wt (lb): 264 Ordering Physician: Linda Randle MD ([id number]) Attending/Referring Phys: [employer] Operator Sánchez Aguilar Procedure CPT: Indications: chf Cardiac Hx: Technical Quality: Fair Contrast 1: Total Dose (mL): Contrast 2: Total Dose (mL): MEASUREMENTS (Male / Female) Normal Values 2D ECHO LV Diastolic Diameter PLAX 5.5 cm 4.2 - 5.9 / 3.9 - 5.3 cm LV Systolic Diameter PLAX 3.8 cm IVS Diastolic Thickness 1.7 cm 0.6 - 1.0 / 0.6 - 0.9 cm LVPW Diastolic Thickness 1.5 cm 0.6 - 1.0 / 0.6 - 0.9 cm LV Relative Wall Thickness 0.6 RV Internal Dim ED PLAX 4.5 cm Aortic Root Diameter 3.4 cm LA Systolic Diameter LX 4.2 cm 3.0 - 4.0 / 2.7 - 3.8 cm LV Diastolic Volume MOD BP 91.0 cm??? 67 - 155 / 56 - 104 cm??? LV Systolic Volume MOD BP 55.8 cm??? 22 - 58 / 19 - 49 cm??? LV Ejection Fraction MOD BP 38.7 % >= 55 % LV Diastolic Volume MOD 4C 124.4 cm??? LV Systolic Volume MOD 4C 89.1 cm??? LV Ejection Fraction MOD 4C 28.4 % LV Diastolic Length 4C 8.2 cm LV Systolic Length 4C 7.1 cm LV Diastolic Volume MOD 2C 64.1 cm??? LV Systolic Volume MOD 2C 34.3 cm??? LV Ejection Fraction MOD 2C 46.5 % LV Diastolic Length 2C 7.8 cm LV Systolic Length 2C 7.3 cm LA Volume 104.8 cm??? 18 - 58 / 22 - 52 cm??? DOPPLER AV Peak Velocity 177.3 cm/s AV Peak Gradient 12.6 mmHg AV Mean Velocity 138.7 cm/s AV Mean Gradient 8.2 mmHg AV Velocity Time Integral 37.4 cm MV Peak Velocity 127.6 cm/s MV Peak Gradient 6.5 mmHg MV Mean Velocity 64.9 cm/s MV Mean Gradient 2.3 mmHg MV Velocity Time Integral 38.0 cm MR Peak Velocity 472.3 cm/s MR Peak Gradient 89.2 mmHg MR ERO PISA 0.7 cm??? MR Regurgitant Volume PISA 100.0 cm??? Mitral E Point Velocity 114.5 cm/s Mitral A Point Velocity 33.0 cm/s Mitral E to A Ratio 3.5 MV Deceleration Time 306.4 ms MV E' Velocity 6.2 cm/s Mitral E to MV E' Ratio 18.4 TR Peak Velocity 331.3 cm/s TR Peak Gradient 43.9 mmHg Right Ventricular Systolic Press 51.2 mmHg PV Peak Velocity 145.6 cm/s PV Peak Gradient 8.5 mmHg FINDINGS Left Ventricle Left ventricular ejection fraction is estimated at 35-40 %. Right Ventricle Moderate right ventricular dilatation. RSVP= 46mmhg Right Atrium Moderate right atrial dilatation. Left Atrium Mild left atrial dilatation. LA volume index= 44ml/m2 Mitral Valve Mild mitral annular calcification. Moderate MR. Aortic Valve Aortic valve not well visualized. Mild to moderate AV calcification. Tricuspid Valve Tricuspid valve not well visualized. Moderate TR. Pulmonic Valve Pulmonic valve not well visualized. Trace PI. Pericardium Normal pericardium. Aorta Moderate AV Calcification. CONCLUSIONS Impaired only function. The EF is around 40% Moderate mitral regurgitation Previewed by: Dr. Boaz Castillo MD (Electronically Signed) Final Date: 16 April 2023 12:29
--- NOTE | 2023-04-16 13:15 | P.PN ---
Subjective Progress Note Date: 04/16/23 Principal diagnosis: Cardiopulmonary arrest This is a 82-year-old male patient who presented to the Department having shortness of breath. The patient had a recent left total knee replacement in an outside facility. The patient is diabetic and has hypertension and chronic atrial fibrillation. In the emergency, the patient went progressively more short of breath, and it seems to be that the patient went into respiratory and subsequent cardiac arrest. He was offered CPR for a total of 3 minutes. His underlying cardiac rhythm was PEA as the patient has no pulses. He did have a wide-complex apical rhythm with underlying atrial fibrillation. Subsequently, there was return of spontaneous circulation. The patient was intubated in the emergency and he was brought up to the intensive care unit. Prior to his arrival, he was also given a CT angiogram that showed no evidence of any pulmonary embolism. It showed moderate-sized bilateral pleural effusion right more than left and compressive atelectatic changes in lung bases. The patient had an obvious cardiomegaly. Post intubation chest x-ray was consistent with CHF and bilateral pleural effusions. He does have chronic edema lower extremity is bilaterally. The left knee francesco are still in place. There is a area of ecchymosis around the wound with a superficial skin abrasion and the surface of the wound is covered with eschar which is quite dark and nonpurulent. The patient is currently on norepinephrine which is running at 0.13 microvascular kilogram per minute. He was given IV Lasix 60 mg and his urine output is in order of 1 75 mL since his arrival from the emergency department. He has a Grande catheter in place. The white cell count is 16.9 with a hemoglobin of 8.2 and a platelet count of 238. INR is at 2.9. Post intubation blood gas shows a pH of 7.4 with a pCO2 of 37 and pO2 of 400. The patient is currently on assist control mode at the rate of 20 with a tidal volume of 500 and FiO2 was at 100% with a PEEP of 5 and FiO2 was dropped down to 50%. The sodium level is at 127, potassium levels at 4.6, BUN is 27 with a creatinine of 0.88. Troponins are 0.05 and 0.04 respectively and a proBNP level is 2790. LFTs are normal. UA was negative. His current cardiac rhythm is atrial fibrillation at rate of 54. Patient is currently on propofol which is running at 60 mcg/kg/m. Patient was reevaluated today on 04/16/2023, remains in the ICU, intubated and mechanically ventilated. Patient is an assist-control rate of 20 tidal volume 500 FiO2 40% PEEP of 5 ABG showed a pO2 of 176 pCO2 38 pH of 7.49, FiO2 was cut down from 50% down to 40%. Patient is still requiring norepinephrine at 0.07 mcg/kg/m is also on propofol at 50 mcg/kg/m. Lasix at 40 mg IV push every 12 hours, remains on Zosyn and Zithromax. According to nurses, patient was taken off propofol yesterday, and he was extremely agitated would not follow any instructions, today I recommended a neurological evaluation on this patient in the meantime we'll try to hold sedation again and assess mental status off sedat ion. WBC count is 10 hemoglobin is 8.7 INR is 1.6. Basic metabolic profile is normal BUN is 28 creatinine 0.93, patient has good urine output, obviously is perfusing his kidneys quite well. Echocardiogram showed LV dysfunction with ejection fraction of 40% and there is evidence of moderate mitral regurgitation and moderate tricuspid regurgitation CT angiogram on presentation showed no evidence of pulmonary embolism. Chest x-ray is suggestive of mild congestive heart failure patient is known to have history of chronic atrial fibrillation, he is status post recent left knee arthroplasty, and he has history of hypertension. Apparently with the patient had his cardiac arrest wide-complex rhythm not requiring any cardioversion and he had a brief CPR. Chest x-ray this morning showed cardiomegaly and pulmonary vascular congestion with small bilateral effusions consistent with mild CHF Objective - Vital Signs Vital signs: Vital Signs Temp 98 F 04/16/23 12:00 Pulse 61 04/16/23 12:30 Resp 20 04/16/23 12:30 BP 113/71 04/16/23 05:45 Pulse Ox 97 04/16/23 12:30 FiO2 40 04/16/23 12:03 Intake & Output 04/15/23 04/16/23 04/16/23 18:59 06:59 18:59 Intake Total 248.466 7633.560 627.076 Output Total 3150 3015 1345 Balance -4714.812 -1937.440 -717.924 Weight 119.8 kg Intake: IV 275 535 310 0.9 KVO 200 310 110 Magnesium Sulfate-D5w Pmx 100 1 gm In Dextrose/Water 1 100ml.bag @ 100 mls/hr IVPB ONCE ONE Rx#: [id number] Piperacillin-Tazobactam 3 75 125 200 .375 gm In Sodium Chloride 0.9% 100 ml @ 25 mls/hr IVPB Q8HR [facility] Rx# :[id number] Intake, IV Titration 350.188 542.560 317.076 Amount Norepinephrine 4 mg In 197.916 292.765 144.412 Sodium Chloride 0.9% 250 ml @ 0.03 MCG/KG/MIN 11. 147 mls/hr IV .[id number] [facility] Rx#:[id number] propofoL 1,000 mg In 152.272 249.795 172.664 Empty Bag 1 bag @ 15 MCG/ KG/MIN 8.777 mls/hr IV . [id number] [facility] Rx#:[id number] Output: Gastric Drainage 1050 Urine 3150 1965 1345 Other: Voiding Method Indwelling Catheter Indwelling Catheter Indwelling Catheter ABP, PAP, CO, CI - Last Documented Arterial Blood Pressure 120/53 - Exam Physical Exam: Revealed an 82-year-old white male intubated mechanically ventilated sedated in no distress Head: Atraumatic normocephalic, endotracheal tube and orogastric tube are intact. HEENT:[Neck is supple.] [No neck masses.] [No thyromegaly.] [No JVD.] Chest: [Minimal fine crackles at the bases no rhonchi and no wheezes Cardiac Exam: [Normal S1 and S2, no S3 gallop, 2/6 systolic murmur thought the precordium. Abdomen: [Soft, nontender, no megaly, no rebound, no guarding, normal bowel sounds.] Extremities: [No clubbing, no edema, no cyanosis.] Neurological Exam: Could not assess patient is sedated, on propofol. Psychiatric: Could not assess, patient is sedated on propofol. Skin: No rashes. However the patient continues to have francesco in the left knee area related to recent total knee arthroplasty about a week ago this was done at [facility] - Labs CBC & Chem 7: 04/16/23 05:00 04/16/23 05:00 Labs: Abnormal Lab Results - Last 24 Hours (Table) 04/15/23 04/15/23 04/16/23 Range/Units 17:35 20:33 00:07 RBC (4.30-5.90) m/uL Hgb (13.0-17.5) gm/dL Hct (39.0-53.0) % MCV (80.0-100.0) fL MCH (25.0-35.0) pg MCHC (31.0-37.0) g/dL RDW (11.5-15.5) % Neutrophils # (1.3-7.7) k/uL PT (9.0-12.0) sec INR (<1.2) ABG pH (7.35-7.45) ABG pO2 (83-108) mmHg ABG HCO3 (21-25) mmol/L ABG Total CO2 (19-24) mmol/L ABG O2 Saturation (94-97) % Sodium (137-145) mmol/L BUN (9-20) mg/dL Glucose (74-99) mg/dL POC Glucose (mg/dL) 209 H 299 H (70-110) mg/dL Hemoglobin A1c % Phosphorus 4.6 H (2.5-4.5) mg/dL 04/16/23 04/16/23 04/16/23 Range/Units 05:00 05:00 05:00 RBC 4.16 L (4.30-5.90) m/uL Hgb 8.7 L (13.0-17.5) gm/dL Hct 28.9 L (39.0-53.0) % MCV 69.4 L (80.0-100.0) fL MCH 21.0 L (25.0-35.0) pg MCHC 30.3 L (31.0-37.0) g/dL RDW 20.9 H (11.5-15.5) % Neutrophils # 7.9 H (1.3-7.7) k/uL PT (9.0-12.0) sec INR (<1.2) ABG pH (7.35-7.45) ABG pO2 (83-108) mmHg ABG HCO3 (21-25) mmol/L ABG Total CO2 (19-24) mmol/L ABG O2 Saturation (94-97) % Sodium 134 L (137-145) mmol/L BUN 28 H (9-20) mg/dL Glucose 178 H (74-99) mg/dL POC Glucose (mg/dL) (70-110) mg/dL Hemoglobin A1c 7.7 H % Phosphorus (2.5-4.5) mg/dL 04/16/23 04/16/23 04/16/23 Range/Units 05:00 05:48 06:16 RBC (4.30-5.90) m/uL Hgb (13.0-17.5) gm/dL Hct (39.0-53.0) % MCV (80.0-100.0) fL MCH (25.0-35.0) pg MCHC (31.0-37.0) g/dL RDW (11.5-15.5) % Neutrophils # (1.3-7.7) k/uL PT 15.9 H (9.0-12.0) sec INR 1.6 H (<1.2) ABG pH 7.49 H (7.35-7.45) ABG pO2 176 H (83-108) mmHg ABG HCO3 29 H (21-25) mmol/L ABG Total CO2 30 H (19-24) mmol/L ABG O2 Saturation 100.0 H (94-97) % Sodium (137-145) mmol/L BUN (9-20) mg/dL Glucose (74-99) mg/dL POC Glucose (mg/dL) 202 H (70-110) mg/dL Hemoglobin A1c % Phosphorus (2.5-4.5) mg/dL 04/16/23 Range/Units 11:29 RBC (4.30-5.90) m/uL Hgb (13.0-17.5) gm/dL Hct (39.0-53.0) % MCV (80.0-100.0) fL MCH (25.0-35.0) pg MCHC (31.0-37.0) g/dL RDW (11.5-15.5) % Neutrophils # (1.3-7.7) k/uL PT (9.0-12.0) sec INR (<1.2) ABG pH (7.35-7.45) ABG pO2 (83-108) mmHg ABG HCO3 (21-25) mmol/L ABG Total CO2 (19-24) mmol/L ABG O2 Saturation (94-97) % Sodium (137-145) mmol/L BUN (9-20) mg/dL Glucose (74-99) mg/dL POC Glucose (mg/dL) 192 H (70-110) mg/dL Hemoglobin A1c % Phosphorus (2.5-4.5) mg/dL Microbiology - Last 24 Hours (Table) 04/15/23 06:30 Blood Culture - Preliminary Blood 04/15/23 06:15 Blood Culture - Preliminary Blood 04/15/23 10:05 Gram Stain - Preliminary Sputum Assessment and Plan Assessment: Impression: Cardiac arrest Acute hypoxic respiratory failure secondary to above Acute hypotension requiring norepinephrine most likely related to his LV dysfunction/cardiogenic shock. Acute systolic congestive heart failure Chronic atrial fibrillation Recent left total knee arthroplasty Type 2 diabetes without complications Degenerative joint disease Long-term anticoagulation, for chronic atrial fibrillation Possible anoxic brain injury, however it's too early to tell. Recommendation: Continue ventilatory support Decrease FiO2 to 40% Continue propofol and the patient will have intermittent interruption of sedation for mental status assessment Continue pressors and titrate the norepinephrine accordingly Continue Lasix every 12 hours 40 mg IV push Echocardiogram report was noted ejection fraction is 40% Continue empiric antibiotics patient is on Zosyn. Continue sliding scale insulin coverage Nutritional support/enteral feeding. 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
--- NOTE | 2023-04-16 14:44 | P.PN ---
Subjective Progress Note Date: 04/16/23 This is an 82-year-old gentleman, recent left knee arthroplasty, cardiac arrested, PEA,downtime 3 minutes, intubated and admitted into the ICU. Remains vent dependent with FiO2 40%/+5 of PEEP. Chest x-ray reporting cardiomegaly, pulmonary vascular congestion and small bilateral pleural effusions/CHF. kirill ntained on Levophed and diprovan drips.Diuresing well on Lasix IVP, with 24-hour I&O reflecting a negative fluid balance. BUN 28, creatinine 0.93. Echo pending telemetry A. fib. INR 1.6. Continues on Zosyn and Zithromax. Yesterday off of sedation ,patient became agitated and did not follow commands, neurology evaluation pending. Objective - Vital Signs Vital signs: Vital Signs Temp 98 F 04/16/23 12:00 Pulse 58 L 04/16/23 13:00 Resp 20 04/16/23 13:00 BP 113/71 04/16/23 05:45 Pulse Ox 97 04/16/23 13:00 FiO2 40 04/16/23 12:03 Intake & Output 04/15/23 04/16/23 04/16/23 18:59 06:59 18:59 Intake Total 723.621 3718.560 687.076 Output Total 3150 3015 1605 Balance -2524.812 -1937.440 -917.924 Weight 119.8 kg 119.8 kg Intake: IV 275 535 370 0.9 KVO 200 310 170 Magnesium Sulfate-D5w Pmx 100 1 gm In Dextrose/Water 1 100ml.bag @ 100 mls/hr IVPB ONCE ONE Rx#: [id number] Piperacillin-Tazobactam 3 75 125 200 .375 gm In Sodium Chloride 0.9% 100 ml @ 25 mls/hr IVPB Q8HR [facility] Rx# :[id number] Intake, IV Titration 350.188 542.560 317.076 Amount Norepinephrine 4 mg In 197.916 292.765 144.412 Sodium Chloride 0.9% 250 ml @ 0.03 MCG/KG/MIN 11. 147 mls/hr IV .[id number] [facility] Rx#:[id number] propofoL 1,000 mg In 152.272 249.795 172.664 Empty Bag 1 bag @ 15 MCG/ KG/MIN 8.777 mls/hr IV . [id number] [facility] Rx#:[id number] Output: Gastric Drainage 1050 Urine 3150 1965 1605 Other: Voiding Method Indwelling Catheter Indwelling Catheter Indwelling Catheter ABP, PAP, CO, CI - Last Documented Arterial Blood Pressure 109/50 - Exam PHYSICAL EXAM: VITAL SIGNS: As above GENERAL: Sitting up in bed, sedated and intubated, no apparent acute distress HEENT: Conjunctivae normal. eyes normal. NECK: Supple, No JVD. CARDIOVASCULAR: S1, S2 regular.. No murmur RESPIRATION: Breath sounds diminished in the bases. No rhonchi or crackles. ABDOMEN: Soft, nontender . No guarding. no masses palpable.positive Bowel sounds. LEGS: Left knee francesco, pos. edema. NERVOUS SYSTEM: Unable to assess as patient sedated and intubated Skin: Warm and dry, no rash Microbiology 04/15/23 10:05 Sputum Gram Stain - Preliminary 04/15/23 10:05 Sputum Sputum Culture - Preliminary 04/15/23 06:30 Blood Blood Culture - Preliminary 04/15/23 06:15 Blood Blood Culture - Preliminary - Labs CBC & Chem 7: 04/16/23 05:00 04/16/23 05:00 Labs: Abnormal Lab Results - Last 24 Hours (Table) 04/15/23 04/15/23 04/16/23 Range/Units 17:35 20:33 00:07 RBC (4.30-5.90) m/uL Hgb (13.0-17.5) gm/dL Hct (39.0-53.0) % MCV (80.0-100.0) fL MCH (25.0-35.0) pg MCHC (31.0-37.0) g/dL RDW (11.5-15.5) % Neutrophils # (1.3-7.7) k/uL PT (9.0-12.0) sec INR (<1.2) ABG pH (7.35-7.45) ABG pO2 (83-108) mmHg ABG HCO3 (21-25) mmol/L ABG Total CO2 (19-24) mmol/L ABG O2 Saturation (94-97) % Sodium (137-145) mmol/L BUN (9-20) mg/dL Glucose (74-99) mg/dL POC Glucose (mg/dL) 209 H 299 H (70-110) mg/dL Hemoglobin A1c % Phosphorus 4.6 H (2.5-4.5) mg/dL 04/16/23 04/16/23 04/16/23 Range/Units 05:00 05:00 05:00 RBC 4.16 L (4.30-5.90) m/uL Hgb 8.7 L (13.0-17.5) gm/dL Hct 28.9 L (39.0-53.0) % MCV 69.4 L (80.0-100.0) fL MCH 21.0 L (25.0-35.0) pg MCHC 30.3 L (31.0-37.0) g/dL RDW 20.9 H (11.5-15.5) % Neutrophils # 7.9 H (1.3-7.7) k/uL PT (9.0-12.0) sec INR (<1.2) ABG pH (7.35-7.45) ABG pO2 (83-108) mmHg ABG HCO3 (21-25) mmol/L ABG Total CO2 (19-24) mmol/L ABG O2 Saturation (94-97) % Sodium 134 L (137-145) mmol/L BUN 28 H (9-20) mg/dL Glucose 178 H (74-99) mg/dL POC Glucose (mg/dL) (70-110) mg/dL Hemoglobin A1c 7.7 H % Phosphorus (2.5-4.5) mg/dL 04/16/23 04/16/23 04/16/23 Range/Units 05:00 05:48 06:16 RBC (4.30-5.90) m/uL Hgb (13.0-17.5) gm/dL Hct (39.0-53.0) % MCV (80.0-100.0) fL MCH (25.0-35.0) pg MCHC (31.0-37.0) g/dL RDW (11.5-15.5) % Neutrophils # (1.3-7.7) k/uL PT 15.9 H (9.0-12.0) sec INR 1.6 H (<1.2) ABG pH 7.49 H (7.35-7.45) ABG pO2 176 H (83-108) mmHg ABG HCO3 29 H (21-25) mmol/L ABG Total CO2 30 H (19-24) mmol/L ABG O2 Saturation 100.0 H (94-97) % Sodium (137-145) mmol/L BUN (9-20) mg/dL Glucose (74-99) mg/dL POC Glucose (mg/dL) 202 H (70-110) mg/dL Hemoglobin A1c % Phosphorus (2.5-4.5) mg/dL 04/16/23 Range/Units 11:29 RBC (4.30-5.90) m/uL Hgb (13.0-17.5) gm/dL Hct (39.0-53.0) % MCV (80.0-100.0) fL MCH (25.0-35.0) pg MCHC (31.0-37.0) g/dL RDW (11.5-15.5) % Neutrophils # (1.3-7.7) k/uL PT (9.0-12.0) sec INR (<1.2) ABG pH (7.35-7.45) ABG pO2 (83-108) mmHg ABG HCO3 (21-25) mmol/L ABG Total CO2 (19-24) mmol/L ABG O2 Saturation (94-97) % Sodium (137-145) mmol/L BUN (9-20) mg/dL Glucose (74-99) mg/dL POC Glucose (mg/dL) 192 H (70-110) mg/dL Hemoglobin A1c % Phosphorus (2.5-4.5) mg/dL Microbiology - Last 24 Hours (Table) 04/15/23 10:05 Gram Stain - Preliminary Sputum Sputum Culture - Preliminary 04/15/23 06:30 Blood Culture - Preliminary Blood 04/15/23 06:15 Blood Culture - Preliminary Blood Assessment and Plan Assessment: Cardiac arrest, PEA, downtime three-minutes Acute hypoxic respiratory failure secondary to the above, mechanical ventilator- dependent Cardiogenic shock, pressor dependent, acute CHF exacerbation, systolic dysfunction Moderate bilateral pleural effusions right greater than left Possible anoxic brain injury, workup in progress Chronic atrial fibrillation on anticoagulation Recent total left knee arthroplasty at [facility] Diabetes mellitus type 2 Obesity, BMI 35.8 Plan: Continue on current medication regime ,monitoring and symptomatic treatment. Maintained on empiric antibiotics. Echo pending. ICU management as per horologist. Neurology consult in place, recommendations pending. Pro gnosis guarded given multiple complex medical issues. The impression and plan of care has been dictated as directed. : I performed a history and examination of this patient, discussed the same with the dictator. I agree with the dictator's note ,documented as a scribe. Any additional findings or plans will be noted.
[2023-04-16 17:33] LABS: Glucose,Whole Blood 180 mg/dL (70-110)
[2023-04-16] MEDS: WARFARIN 5 MG TAB PO SCH (17:39)
[2023-04-16 18:01] LABS: Glucose,Whole Blood 197 mg/dL (70-110)
--- NOTE | 2023-04-16 18:19 | CT ---
EXAMINATION TYPE: CT brain wo con CT DLP: 1212.4 mGycm, Automated exposure control for dose reduction was used. DATE OF EXAM: 04/16/2023 5:16 PM COMPARISON: 07/25/2010. CLINICAL INDICATION:Male, 82 years old with history of altered mental status., AMS TECHNIQUE: Brain: Axial CT images of the brain were obtained with coronal and sagittal reformats created and rev iewed. Contrast used: None. Oral contrast used: None. FINDINGS: Brain: Motion limited exam. Extra-axial spaces: No abnormal extra-axial fluid collections. Ventricular system: Dilatation in proportion to cerebral atrophy. Cerebral parenchyma: No acute intraparenchymal hemorrhage or mass effect. The girard-white junction is well differentiated. Scattered hypoattenuating areas are seen within the white matter. Cerebellum: Unremarkable. Mass effect: No evidence of midline shift. Intracranial vasculature: unremarkable Soft tissues: Normal. Calvarium/osseous structures: No depressed skull fracture. Paranasal sinuses and mastoid air cells: Mild scattered paranasal sinus disease. Visualized orbits: Bilateral aphakia IMPRESSION: Motion limited exam. 1. No acute intracranial process. 2. Nonspecific white matter changes, likely secondary to chronic small vessel ischemic disease.
[2023-04-17 00:14] LABS: Glucose,Whole Blood 181 mg/dL (70-110)
[2023-04-17] MEDS: INSULIN ASPART (NovoLOG) 100 UNIT/ML VIAL SQ SCH ×4 (00:18→18:27)
[2023-04-17] MEDS: PIPERACILLIN-TAZOBACTAM 3.375 GM in SODIUM CHLORIDE 0.9% 100 ML IVPB SCH ×3 (00:19→16:23)
[2023-04-17] MEDS: NOREPINEPHRINE 4 MG in SODIUM CHLORIDE 0.9% 250 ML IV SCH (01:22)
[2023-04-17] MEDS: IPRATROPIUM-ALBUTEROL 3 ML NEB INHALATION SCH ×5 (04:17→20:32)
[2023-04-17 04:45] LABS: Anisocytosis Moderate; Basophils % (A) 0 %; Eosinophils % (A) 1 %; HCT 30.4 % (39.0-53.0); HGB 9.1 gm/dL (13.0-17.5); Hypochromasia Marked; Lymphocytes # (A) 1.2 k/uL (1.0-4.8); Lymphocytes % (A) 13 %; MCH 20.7 pg (25.0-35.0); MCHC 29.9 g/dL (31.0-37.0); MCV 69.3 fL (80.0-100.0); Mean Platelet Volume 7.5; Microcytosis Marked; Monocytes # (A) 0.8 k/uL (0-1.0); Monocytes % (A) 9 %; Neutrophils # (A) 6.9 k/uL (1.3-7.7); Neutrophils % (A) 76 %; Platelet Count 341 k/uL (150-450); Poikilocytosis Slight; RBC 4.38 m/uL (4.30-5.90); RDW 20.6 % (11.5-15.5)
[2023-04-17 04:49] LABS: African American GFR (CKD) 90 (>60 ml/min/1.73 sqM); Anion Gap 6 mmol/L; Blood Urea Nitrogen 25 mg/dL (9-20); Calcium 7.9 mg/dL (8.4-10.2); Carbon Dioxide 30 mmol/L (22-30); Chloride 99 mmol/L (98-107); Glucose 174 mg/dL (74-99); Non-African American GFR(CKD) 78 (>60 ml/min/1.73 sqM); Potassium 3.6 mmol/L (3.5-5.1); Sodium 135 mmol/L (137-145)
[2023-04-17 05:03] LABS: INR 1.4 (<1.2); Prothrombin Time 14.5 sec (9.0-12.0)
[2023-04-17 05:16] LABS: ABG Base Excess 3.3 mmol/L; ABG HCO3 27 mmol/L (21-25); ABG PCO2 35 mmHg (35-45); ABG PH 7.49 (7.35-7.45); ABG PO2 135 mmHg (83-108); ABG TCO2 28 mmol/L (19-24)
[2023-04-17 05:54] LABS: Glucose,Whole Blood 210 mg/dL (70-110)
[2023-04-17] MEDS ORDERED: POTASSIUM BICARBONATE/CIT AC 20 MEQ TABLET.EFF NG-TUBE SCH ×2 (06:00→10:00)
[2023-04-17] MEDS: SODIUM CHLORIDE 0.9% 1,000 ML IV SCH (06:08)
--- NOTE | 2023-04-17 06:42 | XR ---
EXAMINATION TYPE: XR chest 1V portable DATE OF EXAM: 04/17/2023 Comparison: 04/16/2023 Clinical History: 82-year-old male Tube placement Findings: ET and NG tubes satisfactory. Heart remains enlarged. Hyperinflation. Bibasilar opacities persist, in creasing now on the right. Right IJ CVC tip in upper right atrium. Impression: Cardiomegaly and COPD. Possible background mild pulmonary vascular congestion. Patchy bibasilar opaci ties persist, worsening now on the right.
[2023-04-17] MEDS: PANTOPRAZOLE 40 MG/10 ML VIAL IVP SCH (08:35)
[2023-04-17] MEDS: AZITHROMYCIN 500 MG TAB PO SCH (08:35)
[2023-04-17] MEDS: FUROSEMIDE 10 MG/ML 4 ML VIAL IV SCH ×2 (08:35→20:16)
[2023-04-17] MEDS: METOPROLOL TARTRATE 25 MG TAB PO SCH ×2 (08:35→20:16)
[2023-04-17] MEDS: CHLORHEXIDINE GLUCONATE 15 ML CUP MUCOUS MEM SCH (08:35)
--- NOTE | 2023-04-17 10:06 | P.PN ---
Subjective History of Present Illness: The patient is an 82-year-old male with known history of hypertension, diabetes, chronic persistent atrial fibrillation who has underwent recent left total knee arthroplasty and presented with symptoms of progressive dyspnea. In the emergency room he became more dyspneic, hypotensive, had what appears to be according to the staff atrial fibrillation with wide complex, was intubated and received a bolus of amiodarone. He is seen in the ICU. He is in atrial fibrillation was controlled ventricle response. He has significant edema on presentation. Chest x-ray showed probable CHF and his CT angiogram showed no pu lmonary embolism with right-sided effusion with possible atelectasis. No other history is available. Medications: Metformin, Coumadin, Glucotrol, spironolactone, metoprolol, lisinopril HCTZ, insulin 04/16 Patient seen and examined. Patient remains on ventilator with FiO2 40% and remains unresponsive on ventilator. Has been receiving IV Lasix with good urine output. Creatinine has been stable at 1.0. Still does have 2+ lower extremity edema. Echocardiogram performed today however pending results. Remains in A. fib with controlled heart rates. On low-dose norepinephrine however receiving beta brody. 04/17 Patient seen and examined. FiO2 decreased to 35%. Patient was following some commands however not able to be extubated yesterday. Has still had good urine output with the Lasix 40 mg IV every 12 hours. Echocardiogram shows EF 35-40%. Remains in A. fib with controlled heart rates. Has come down somewhat on the norepinephrine. Physical Examination: Vitals reviewed Head: Normocephalic. Eyes: Sclerae nonicteric. Neck: Good carotid upstroke, no bruit, no jugular venous distention. Lungs: Decreased breath sounds at the bases Heart: Irregular rate and rhythm, S1-S2, no S3, no rub. Systolic ejection murmur. Abdomen: Soft, positive bowel sounds no organomegaly. Extremities: +2 edema, intact distal pulses. Karli left knee Impression: 1. Respiratory failure with evidence to suggest CHF, baseline systolic function is not available 2. Chronic persistent atrial fibrillation, anticoagulated 3. Status post recent knee surgery 4. History of hypertension 5. History of diabetes 6. Mild troponin elevation, type II myocardial infarction, no evidence of acute ischemic event 7. Cardiac arrest with some wide complex rhythm, not requiring any cardioversion and brief CPR, unclear pulmonary vs respiratory arrest 8. Acute on chronic systolic heart failure 9. Cardiomyopathy EF 35-40%, unclear ischemic versus nonischemic Plan: Continue with diuretics and monitor response. Patient may eventually need further ischemic workup however at this time continued to attempt to optimize heart failure regimen and supportive care. Continue Coumadin with goal INR 2-3. Still appears volume overloaded with CVP reading 9 and continue diuretics. Objective - Vital Signs Vital signs: Vital Signs Temp 98 F 04/17/23 08:00 Pulse 70 04/17/23 09:00 Resp 20 04/17/23 09:00 BP 112/73 04/17/23 09:00 Pulse Ox 98 04/17/23 09:00 FiO2 35 04/17/23 08:08 Intake & Output 04/16/23 04/17/23 04/17/23 18:59 06:59 18:59 Intake Total 3386.282 6794.355 396.545 Output Total 2024 1670 215 Balance -919.397 -382.645 181.545 Weight 119.8 kg Intake: IV 490 416 158 0.9 KVO 290 250 40 Art Line 33 9 CVP 33 9 Piperacillin-Tazobactam 3 200 100 100 .375 gm In Sodium Chloride 0.9% 100 ml @ 25 mls/hr IVPB Q8HR GUY Rx# :[id number] Intake, IV Titration 615.603 431.355 78.545 Amount Norepinephrine 4 mg In 254.000 233.834 Sodium Chloride 0.9% 250 ml @ 0.03 MCG/KG/MIN 11. 147 mls/hr IV .[id number] GUY Rx#:[id number] propofoL 1,000 mg In 361.603 197.521 78.545 Empty Bag 1 bag @ 15 MCG/ KG/MIN 8.777 mls/hr IV . [id number] GUY Rx#:[id number] Tube Feeding 275 70 Other 165 90 Output: Urine 2024 1669 215 Other: Voiding Method Indwelling Catheter Indwelling Catheter Indwelling Catheter ABP, PAP, CO, CI - Last Documented Arterial Blood Pressure 94/43 - Labs CBC & Chem 7: 04/17/23 04:20 04/17/23 09:00 Labs: Abnormal Lab Results - Last 24 Hours (Table) 04/16/23 04/16/23 04/16/23 Range/Units 05:00 11:29 17:31 Hgb (13.0-17.5) gm/dL Hct (39.0-53.0) % MCV (80.0-100.0) fL MCH (25.0-35.0) pg MCHC (31.0-37.0) g/dL RDW (11.5-15.5) % PT (9.0-12.0) sec INR (<1.2) ABG pH (7.35-7.45) ABG pO2 (83-108) mmHg ABG HCO3 (21-25) mmol/L ABG Total CO2 (19-24) mmol/L ABG O2 Saturation (94-97) % Sodium (137-145) mmol/L BUN (9-20) mg/dL Glucose (74-99) mg/dL POC Glucose (mg/dL) 192 H 180 H (70-110) mg/dL Hemoglobin A1c 7.7 H % Calcium (8.4-10.2) mg/dL 04/16/23 04/17/23 04/17/23 Range/Units 17:59 00:13 04:20 Hgb (13.0-17.5) gm/dL Hct (39.0-53.0) % MCV (80.0-100.0) fL MCH (25.0-35.0) pg MCHC (31.0-37.0) g/dL RDW (11.5-15.5) % PT 14.5 H (9.0-12.0) sec INR 1.4 H (<1.2) ABG pH (7.35-7.45) ABG pO2 (83-108) mmHg ABG HCO3 (21-25) mmol/L ABG Total CO2 (19-24) mmol/L ABG O2 Saturation (94-97) % Sodium (137-145) mmol/L BUN (9-20) mg/dL Glucose (74-99) mg/dL POC Glucose (mg/dL) 197 H 181 H (70-110) mg/dL Hemoglobin A1c % Calcium (8.4-10.2) mg/dL 04/17/23 04/17/23 04/17/23 Range/Units 04:20 04:20 05:05 Hgb 9.1 L (13.0-17.5) gm/dL Hct 30.4 L (39.0-53.0) % MCV 69.3 L (80.0-100.0) fL MCH 20.7 L (25.0-35.0) pg MCHC 29.9 L (31.0-37.0) g/dL RDW 20.6 H (11.5-15.5) % PT (9.0-12.0) sec INR (<1.2) ABG pH 7.49 H (7.35-7.45) ABG pO2 135 H (83-108) mmHg ABG HCO3 27 H (21-25) mmol/L ABG Total CO2 28 H (19-24) mmol/L ABG O2 Saturation 100.0 H (94-97) % Sodium 135 L (137-145) mmol/L BUN 25 H (9-20) mg/dL Glucose 174 H (74-99) mg/dL POC Glucose (mg/dL) (70-110) mg/dL Hemoglobin A1c % Calcium 7.9 L (8.4-10.2) mg/dL 04/17/23 Range/Units 05:52 Hgb (13.0-17.5) gm/dL Hct (39.0-53.0) % MCV (80.0-100.0) fL MCH (25.0-35.0) pg MCHC (31.0-37.0) g/dL RDW (11.5-15.5) % PT (9.0-12.0) sec INR (<1.2) ABG pH (7.35-7.45) ABG pO2 (83-108) mmHg ABG HCO3 (21-25) mmol/L ABG Total CO2 (19-24) mmol/L ABG O2 Saturation (94-97) % Sodium (137-145) mmol/L BUN (9-20) mg/dL Glucose (74-99) mg/dL POC Glucose (mg/dL) 210 H (70-110) mg/dL Hemoglobin A1c % Calcium (8.4-10.2) mg/dL Microbiology - Last 24 Hours (Table) 04/15/23 10:05 Gram Stain - Final Sputum Sputum Culture - Final 04/15/23 06:30 Blood Culture - Preliminary Blood 04/15/23 06:15 Blood Culture - Preliminary Blood
[2023-04-17] MEDS: DEXMEDETOMIDINE/0.9% NACL(PMX) 400 MCG in EMPTY BAG 1 BAG IV SCH (10:21)
[2023-04-17 11:17] LABS: ABG Base Excess 9.3 mmol/L; ABG HCO3 32 mmol/L (21-25); ABG PCO2 36 mmHg (35-45); ABG PH 7.55 (7.35-7.45); ABG PO2 138 mmHg (83-108); ABG TCO2 33 mmol/L (19-24)
[2023-04-17 11:54] LABS: Glucose,Whole Blood 243 mg/dL (70-110)
--- NOTE | 2023-04-17 13:30 | P.PN ---
Subjective Progress Note Date: 04/17/23 Principal diagnosis: Cardiopulmonary arrest This is a 82-year-old male patient who presented to the Department having shortness of breath. The patient had a recent left total knee replacement in an outside facility. The patient is diabetic and has hypertension and chronic atrial fibrillation. In the emergency, the patient went progressively more short of breath, and it seems to be that the patient went into respiratory and subsequent cardiac arrest. He was offered CPR for a total of 3 minutes. His underlying cardiac rhythm was PEA as the patient has no pulses. He did have a wide-complex apical rhythm with underlying atrial fibrillation. Subsequently, there was return of spontaneous circulation. The patient was intubated in the emergency and he was brought up to the intensive care unit. Prior to his arrival, he was also given a CT angiogram that showed no evidence of any pulmonary embolism. It showed moderate-sized bilateral pleural effusion right more than left and compressive atelectatic changes in lung bases. The patient had an obvious cardiomegaly. Post intubation chest x-ray was consistent with CHF and bilateral pleural effusions. He does have chronic edema lower extremity is bilaterally. The left knee francesco are still in place. There is a area of ecchymosis around the wound with a superficial skin abrasion and the surface of the wound is covered with eschar which is quite dark and nonpurulent. The patient is currently on norepinephrine which is running at 0.13 microvascular kilogram per minute. He was given IV Lasix 60 mg and his urine output is in order of 1 75 mL since his arrival from the emergency department. He has a Grande catheter in place. The white cell count is 16.9 with a hemoglobin of 8.2 and a platelet count of 238. INR is at 2.9. Post intubation blood gas shows a pH of 7.4 with a pCO2 of 37 and pO2 of 400. The patient is currently on assist control mode at the rate of 20 with a tidal volume of 500 and FiO2 was at 100% with a PEEP of 5 and FiO2 was dropped down to 50%. The sodium level is at 127, potassium levels at 4.6, BUN is 27 with a creatinine of 0.88. Troponins are 0.05 and 0.04 respectively and a proBNP level is 2790. LFTs are normal. UA was negative. His current cardiac rhythm is atrial fibrillation at rate of 54. Patient is currently on propofol which is running at 60 mcg/kg/m. Patient was reevaluated today on 04/16/2023, remains in the ICU, intubated and mechanically ventilated. Patient is an assist-control rate of 20 tidal volume 500 FiO2 40% PEEP of 5 ABG showed a pO2 of 176 pCO2 38 pH of 7.49, FiO2 was cut down from 50% down to 40%. Patient is still requiring norepinephrine at 0.07 mcg/kg/m is also on propofol at 50 mcg/kg/m. Lasix at 40 mg IV push every 12 hours, remains on Zosyn and Zithromax. According to nurses, patient was taken off propofol yesterday, and he was extremely agitated would not follow any instructions, today I recommended a neurological evaluation on this patient in the meantime we'll try to hold sedation again and assess mental status off sedat ion. WBC count is 10 hemoglobin is 8.7 INR is 1.6. Basic metabolic profile is normal BUN is 28 creatinine 0.93, patient has good urine output, obviously is perfusing his kidneys quite well. Echocardiogram showed LV dysfunction with ejection fraction of 40% and there is evidence of moderate mitral regurgitation and moderate tricuspid regurgitation CT angiogram on presentation showed no evidence of pulmonary embolism. Chest x-ray is suggestive of mild congestive heart failure patient is known to have history of chronic atrial fibrillation, he is status post recent left knee arthroplasty, and he has history of hypertension. Apparently with the patient had his cardiac arrest wide-complex rhythm not requiring any cardioversion and he had a brief CPR. Chest x-ray this morning showed cardiomegaly and pulmonary vascular congestion with small bilateral effusions consistent with mild CHF Reevaluated today on 04/17/2023 remains in the ICU, intubated and mechanically ventilated. Patient is on assist control rate of 20 tidal volume 500 FiO2 35% PEEP of 5 ABG showed a pO2 of 135 pCO2 35 pH of 7.49. Remains on norepinephrine at 0.04, propofol was just placed on hold this morning, and I plan to give the patient a weaning trial today after propofol, may or may not end up using Precedex. Shortly after propofol was discontinued, I was notified by the nurse of the patient is waking up, seems to be appropriate and following simple instructions. Hence I transition the patient to pressure support of 10 and CPAP CBC today is relatively normal WBC count of 9 hemoglobin is 9.1, basic metabolic profile is normal renal profile is normal and his blood sugar is 243. Chest x- ray showed cardiomegaly, and mild pulmonary vascular congestion and possible pneumonia is not entirely ruled out, could be aspiration pneumonia. CT of the brain showed no acute intracranial process. Objective - Vital Signs Vital signs: Vital Signs Temp 99.2 F 04/17/23 12:00 Pulse 51 L 04/17/23 13:00 Resp 14 04/17/23 13:00 BP 111/59 04/17/23 13:00 Pulse Ox 97 04/17/23 13:00 FiO2 35 04/17/23 12:00 Intake & Output 04/16/23 04/17/23 04/17/23 18:59 06:59 18:59 Intake Total 6039.006 1450.355 652.612 Output Total 20240 1690 Balance -919.397 -382.645 -1037.388 Weight 119.8 kg 119.8 kg Intake: IV 490 416 262 0.9 KVO 290 250 120 Art Line 33 21 CVP 33 21 Piperacillin-Tazobactam 3 200 100 100 .375 gm In Sodium Chloride 0.9% 100 ml @ 25 mls/hr IVPB Q8HR GUY Rx# :[id number] Intake, IV Titration 615.603 431.355 95.612 Amount Norepinephrine 4 mg In 254.000 233.834 Sodium Chloride 0.9% 250 ml @ 0.03 MCG/KG/MIN 11. 147 mls/hr IV .[id number] GUY Rx#:[id number] propofoL 1,000 mg In 361.603 197.521 95.612 Empty Bag 1 bag @ 15 MCG/ KG/MIN 8.777 mls/hr IV . [id number] GUY Rx#:[id number] Tube Feeding 275 175 Other 165 120 Output: Urine 2024 1669 1690 Other: Voiding Method Indwelling Catheter Indwelling Catheter Indwelling Catheter ABP, PAP, CO, CI - Last Documented Arterial Blood Pressure 68/53 - Exam Physical Exam: Revealed an 82-year-old white male intubated mechanically ventilated sedated in no distress Head: Atraumatic normocephalic, endotracheal tube and orogastric tube are intact. HEENT:[Neck is supple.] [No neck masses.] [No thyromegaly.] [No JVD.] Chest: [Minimal fine crackles at the bases no rhonchi and no wheezes Cardiac Exam: [Normal S1 and S2, no S3 gallop, 2/6 systolic murmur thought the precordium. Abdomen: [Soft, nontender, no megaly, no rebound, no guarding, normal bowel sounds.] Extremities: [No clubbing, no edema, no cyanosis.] Neurological Exam: Could not assess patient is sedated, on propofol. Psychiatric: Could not assess, patient is sedated on propofol. Skin: No rashes. Surgical wound on left knee seems to be intact. - Labs CBC & Chem 7: 04/17/23 04:20 04/17/23 09:00 Labs: Abnormal Lab Results - Last 24 Hours (Table) 04/16/23 04/16/23 04/17/23 Range/Units 17:31 17:59 00:13 Hgb (13.0-17.5) gm/dL Hct (39.0-53.0) % MCV (80.0-100.0) fL MCH (25.0-35.0) pg MCHC (31.0-37.0) g/dL RDW (11.5-15.5) % PT (9.0-12.0) sec INR (<1.2) ABG pH (7.35-7.45) ABG pO2 (83-108) mmHg ABG HCO3 (21-25) mmol/L ABG Total CO2 (19-24) mmol/L ABG O2 Saturation (94-97) % Sodium (137-145) mmol/L BUN (9-20) mg/dL Glucose (74-99) mg/dL POC Glucose (mg/dL) 180 H 197 H 181 H (70-110) mg/dL Calcium (8.4-10.2) mg/dL 04/17/23 04/17/23 04/17/23 Range/Units 04:20 04:20 04:20 Hgb 9.1 L (13.0-17.5) gm/dL Hct 30.4 L (39.0-53.0) % MCV 69.3 L (80.0-100.0) fL MCH 20.7 L (25.0-35.0) pg MCHC 29.9 L (31.0-37.0) g/dL RDW 20.6 H (11.5-15.5) % PT 14.5 H (9.0-12.0) sec INR 1.4 H (<1.2) ABG pH (7.35-7.45) ABG pO2 (83-108) mmHg ABG HCO3 (21-25) mmol/L ABG Total CO2 (19-24) mmol/L ABG O2 Saturation (94-97) % Sodium 135 L (137-145) mmol/L BUN 25 H (9-20) mg/dL Glucose 174 H (74-99) mg/dL POC Glucose (mg/dL) (70-110) mg/dL Calcium 7.9 L (8.4-10.2) mg/dL 04/17/23 04/17/23 04/17/23 Range/Units 05:05 05:52 11:53 Hgb (13.0-17.5) gm/dL Hct (39.0-53.0) % MCV (80.0-100.0) fL MCH (25.0-35.0) pg MCHC (31.0-37.0) g/dL RDW (11.5-15.5) % PT (9.0-12.0) sec INR (<1.2) ABG pH 7.49 H (7.35-7.45) ABG pO2 135 H (83-108) mmHg ABG HCO3 27 H (21-25) mmol/L ABG Total CO2 28 H (19-24) mmol/L ABG O2 Saturation 100.0 H (94-97) % Sodium (137-145) mmol/L BUN (9-20) mg/dL Glucose (74-99) mg/dL POC Glucose (mg/dL) 210 H 243 H (70-110) mg/dL Calcium (8.4-10.2) mg/dL Microbiology - Last 24 Hours (Table) 04/15/23 06:30 Blood Culture - Preliminary Blood 04/15/23 06:15 Blood Culture - Preliminary Blood 04/15/23 10:05 Gram Stain - Final Sputum Sputum Culture - Final Assessment and Plan Assessment: Impression: Cardiac arrest Acute hypoxic respiratory failure secondary to above Acute hypotension requiring norepinephrine most likely related to his LV dysfunction/cardiogenic shock. Acute systolic congestive heart failure Chronic atrial fibrillation Recent left total knee arthroplasty Type 2 diabetes without complications Degenerative joint disease Long-term anticoagulation, for chronic atrial fibrillation Possible anoxic brain injury, however it's too early to tell. Recommendation: Continue ventilatory support however the patient will be given a trial of pr essure support and CPAP/weaning trial today off propofol. Decrease FiO2 to 35% Hold propofol today and assess for possible weaning Titrate norepinephrine accordingly. Continue Lasix every 12 hours 40 mg IV push Echocardiogram showed some LV dysfunction. Continue Zosyn for presumptive aspiration. Pneumonia. Continue sliding scale insulin coverage Nutritional support/enteral feeding. however will hold the enteral feeding for now until the patient is extubated We will continue to follow Prognosis is guarded patient is critically ill Critical care time is over 30 minutes Time with Patient: Greater than 30
--- NOTE | 2023-04-17 14:45 | P.PN ---
Subjective Progress Note Date: 04/17/23 The patient is seen at bedside and per nurse he was not extubated yesterday since could not protect his airway. He is on IV Precedex. Objective - Vital Signs Vital signs: Vital Signs Temp 99.2 F 04/17/23 12:00 Pulse 58 L 04/17/23 13:46 Resp 14 04/17/23 13:00 BP 111/59 04/17/23 13:00 Pulse Ox 97 04/17/23 13:00 FiO2 35 04/17/23 12:00 Intake & Output 04/16/23 04/17/23 04/17/23 18:59 06:59 18:59 Intake Total 1649.218 1698.355 652.612 Output Total 2024 1669 1690 Balance -919.397 -382.645 -1037.388 Weight 119.8 kg 119.8 kg Intake: IV 490 416 262 0.9 KVO 290 250 120 Art Line 33 21 CVP 33 21 Piperacillin-Tazobactam 3 200 100 100 .375 gm In Sodium Chloride 0.9% 100 ml @ 25 mls/hr IVPB Q8HR GUY Rx# :[id number] Intake, IV Titration 615.603 431.355 95.612 Amount Norepinephrine 4 mg In 254.000 233.834 Sodium Chloride 0.9% 250 ml @ 0.03 MCG/KG/MIN 11. 147 mls/hr IV .[id number] GUY Rx#:[id number] propofoL 1,000 mg In 361.603 197.521 95.612 Empty Bag 1 bag @ 15 MCG/ KG/MIN 8.777 mls/hr IV . [id number] GUY Rx#:[id number] Tube Feeding 275 175 Other 165 120 Output: Urine 2024 1669 1690 Other: Voiding Method Indwelling Catheter Indwelling Catheter Indwelling Catheter ABP, PAP, CO, CI - Last Documented Arterial Blood Pressure 68/53 - Exam GENERAL: The patient is lying in bed and does not appear in acute distress. LUNG: Intubated on ventilator. Not labored breathing. NEUROLOGICAL: Limited since patient is intubated on vent and was on IV Precedex 0.2mcg/kg/hr. Higher mental function: Patient is drowsy but briefly open his eyes. Otherwise limited. No facial weakness. Not spontanous movement. Some of the workup during this hospital visit consisted of Initial sodium was 1:30 then a got as low as 127 currently is 134. Serum glucose initially was 95 at most current one is 178. Ammonia <9 Calcium is within normal limits. Magnesium is within normal limits. CT head is reported as no acute intracranial process. I reviewed CT head and agree with report. - Labs CBC & Chem 7: 04/17/23 04:20 04/17/23 09:00 Labs: Abnormal Lab Results - Last 24 Hours (Table) 04/16/23 04/16/23 04/17/23 Range/Units 17:31 17:59 00:13 Hgb (13.0-17.5) gm/dL Hct (39.0-53.0) % MCV (80.0-100.0) fL MCH (25.0-35.0) pg MCHC (31.0-37.0) g/dL RDW (11.5-15.5) % PT (9.0-12.0) sec INR (<1.2) ABG pH (7.35-7.45) ABG pO2 (83-108) mmHg ABG HCO3 (21-25) mmol/L ABG Total CO2 (19-24) mmol/L ABG O2 Saturation (94-97) % Sodium (137-145) mmol/L BUN (9-20) mg/dL Glucose (74-99) mg/dL POC Glucose (mg/dL) 180 H 197 H 181 H (70-110) mg/dL Calcium (8.4-10.2) mg/dL 04/17/23 04/17/23 04/17/23 Range/Units 04:20 04:20 04:20 Hgb 9.1 L (13.0-17.5) gm/dL Hct 30.4 L (39.0-53.0) % MCV 69.3 L (80.0-100.0) fL MCH 20.7 L (25.0-35.0) pg MCHC 29.9 L (31.0-37.0) g/dL RDW 20.6 H (11.5-15.5) % PT 14.5 H (9.0-12.0) sec INR 1.4 H (<1.2) ABG pH (7.35-7.45) ABG pO2 (83-108) mmHg ABG HCO3 (21-25) mmol/L ABG Total CO2 (19-24) mmol/L ABG O2 Saturation (94-97) % Sodium 135 L (137-145) mmol/L BUN 25 H (9-20) mg/dL Glucose 174 H (74-99) mg/dL POC Glucose (mg/dL) (70-110) mg/dL Calcium 7.9 L (8.4-10.2) mg/dL 04/17/23 04/17/23 04/17/23 Range/Units 05:05 05:52 11:53 Hgb (13.0-17.5) gm/dL Hct (39.0-53.0) % MCV (80.0-100.0) fL MCH (25.0-35.0) pg MCHC (31.0-37.0) g/dL RDW (11.5-15.5) % PT (9.0-12.0) sec INR (<1.2) ABG pH 7.49 H (7.35-7.45) ABG pO2 135 H (83-108) mmHg ABG HCO3 27 H (21-25) mmol/L ABG Total CO2 28 H (19-24) mmol/L ABG O2 Saturation 100.0 H (94-97) % Sodium (137-145) mmol/L BUN (9-20) mg/dL Glucose (74-99) mg/dL POC Glucose (mg/dL) 210 H 243 H (70-110) mg/dL Calcium (8.4-10.2) mg/dL Microbiology - Last 24 Hours (Table) 04/15/23 06:30 Blood Culture - Preliminary Blood 04/15/23 06:15 Blood Culture - Preliminary Blood 04/15/23 10:05 Gram Stain - Final Sputum Sputum Culture - Final Assessment and Plan Assessment: Acute cardiopulmonary arrest most likely pulmonary followed by cardiac event and he was down for 3 minutes and was in PEA. Encephalopathy due to above as well as due to medication effect (Precedexl) Acute hypoxic respiratory failure patient is intubated on ventilator Moderate sized bilateral pleural effusion Chronic atrial fibrillation on Coumadin. INR is 2.6 on presentation. Recent left knee arthroplasty Diabetes mellitus Hypertension Osteoarthritis Plan: Ordered routine EEG which likely will be completed tomorrow since no availability today. CT head is negative. We'll defer the rest of the medical management to the primary and ICU team. Cardiology is on board Patient condition is very guarded Plan discussed with the patient nurse Time with Patient: Less than 30
[2023-04-17 15:27] LABS: Allen Test Performed? no
--- NOTE | 2023-04-17 15:40 | P.PN ---
Subjective Progress Note Date: 04/17/23 This is an 82-year-old gentleman, recent left knee arthroplasty, cardiac arrested, PEA,downtime 3 minutes, intubated and admitted into the ICU. Remains vent dependent with FiO2 40%/+5 of PEEP. Chest x-ray reporting cardiomegaly, pulmonary vascular congestion and small bilateral pleural effusions/CHF. kirill ntained on Levophed and diprovan drips.Diuresing well on Lasix IVP, with 24-hour I&O reflecting a negative fluid balance. BUN 28, creatinine 0.93. Echo pending telemetry A. fib. INR 1.6. Continues on Zosyn and Zithromax. Yesterday off of sedation ,patient became agitated and did not follow commands, neurology evaluation pending. 04/17/2023 remains vent dependent, FiO2 decreased to 35%/+5 of PEEP. Chest x- ray reporting possible background mild pulmonary vascular congestion, patchy bibasilar opacity's persist worsening now on the right. Maintained on Zosyn for suspected aspiration. Maintained on Continues on levothyroid and diprovan drips. Diuresing well on Lasix IV push with 24-hour I&O reflecting a negative fluid balance. Brain CT reported no acute intracranial process, nonspecific white matter changes likely secondary to chronic small vessel ischemic disease. Scheduled for repeat weaning trial today Objective - Vital Signs Vital signs: Vital Signs Temp 99.2 F 04/17/23 12:00 Pulse 53 L 04/17/23 15:00 Resp 11 L 04/17/23 15:00 BP 110/66 04/17/23 15:00 Pulse Ox 97 04/17/23 15:00 FiO2 35 04/17/23 12:00 Intake & Output 04/16/23 04/17/23 04/17/23 18:59 06:59 18:59 Intake Total 8973.562 4009.355 704.612 Output Total 20240 Balance -919.397 -382.645 -1235.388 Weight 119.8 kg 119.8 kg Intake: IV 490 416 314 0.9 KVO 290 250 160 Art Line 33 27 CVP 33 27 Piperacillin-Tazobactam 3 200 100 100 .375 gm In Sodium Chloride 0.9% 100 ml @ 25 mls/hr IVPB Q8HR [facility] Rx# :[id number] Intake, IV Titration 615.603 431.355 95.612 Amount Norepinephrine 4 mg In 254.000 233.834 Sodium Chloride 0.9% 250 ml @ 0.03 MCG/KG/MIN 11. 147 mls/hr IV .[id number] [facility] Rx#:[id number] propofoL 1,000 mg In 361.603 197.521 95.612 Empty Bag 1 bag @ 15 MCG/ KG/MIN 8.777 mls/hr IV . [id number] [facility] Rx#:[id number] Tube Feeding 275 175 Other 165 120 Output: Urine 20240 Other: Voiding Method Indwelling Catheter Indwelling Catheter Indwelling Catheter ABP, PAP, CO, CI - Last Documented Arterial Blood Pressure 88/50 - Exam PHYSICAL EXAM: VITAL SIGNS: As above GENERAL: Sitting up in bed, sedated and intubated, no apparent acute distress HEENT: Conjunctivae normal. eyes normal. NECK: Supple, No JVD. CARDIOVASCULAR: S1, S2 regular. Systolic murmur. RESPIRATION: Breath sounds diminished in the bases. No rhonchi or crackles. ABDOMEN: Soft, nontender . No guarding. no masses palpable.positive Bowel sounds. :Scrotal edema. LEGS: Left knee francesco, superficial necrotic area lateral to the knee francesco, pos. edema. NERVOUS SYSTEM: Unable to assess as patient sedated and intubated Skin: Warm and dry, no rash - Labs CBC & Chem 7: 04/17/23 04:20 04/17/23 09:00 Labs: Abnormal Lab Results - Last 24 Hours (Table) 04/16/23 04/16/23 04/17/23 Range/Units 17:31 17:59 00:13 Hgb (13.0-17.5) gm/dL Hct (39.0-53.0) % MCV (80.0-100.0) fL MCH (25.0-35.0) pg MCHC (31.0-37.0) g/dL RDW (11.5-15.5) % PT (9.0-12.0) sec INR (<1.2) ABG pH (7.35-7.45) ABG pO2 (83-108) mmHg ABG HCO3 (21-25) mmol/L ABG Total CO2 (19-24) mmol/L ABG O2 Saturation (94-97) % Sodium (137-145) mmol/L BUN (9-20) mg/dL Glucose (74-99) mg/dL POC Glucose (mg/dL) 180 H 197 H 181 H (70-110) mg/dL Calcium (8.4-10.2) mg/dL 04/17/23 04/17/23 04/17/23 Range/Units 04:20 04:20 04:20 Hgb 9.1 L (13.0-17.5) gm/dL Hct 30.4 L (39.0-53.0) % MCV 69.3 L (80.0-100.0) fL MCH 20.7 L (25.0-35.0) pg MCHC 29.9 L (31.0-37.0) g/dL RDW 20.6 H (11.5-15.5) % PT 14.5 H (9.0-12.0) sec INR 1.4 H (<1.2) ABG pH (7.35-7.45) ABG pO2 (83-108) mmHg ABG HCO3 (21-25) mmol/L ABG Total CO2 (19-24) mmol/L ABG O2 Saturation (94-97) % Sodium 135 L (137-145) mmol/L BUN 25 H (9-20) mg/dL Glucose 174 H (74-99) mg/dL POC Glucose (mg/dL) (70-110) mg/dL Calcium 7.9 L (8.4-10.2) mg/dL 04/17/23 04/17/23 04/17/23 Range/Units 05:05 05:52 11:53 Hgb (13.0-17.5) gm/dL Hct (39.0-53.0) % MCV (80.0-100.0) fL MCH (25.0-35.0) pg MCHC (31.0-37.0) g/dL RDW (11.5-15.5) % PT (9.0-12.0) sec INR (<1.2) ABG pH 7.49 H (7.35-7.45) ABG pO2 135 H (83-108) mmHg ABG HCO3 27 H (21-25) mmol/L ABG Total CO2 28 H (19-24) mmol/L ABG O2 Saturation 100.0 H (94-97) % Sodium (137-145) mmol/L BUN (9-20) mg/dL Glucose (74-99) mg/dL POC Glucose (mg/dL) 210 H 243 H (70-110) mg/dL Calcium (8.4-10.2) mg/dL Microbiology - Last 24 Hours (Table) 04/15/23 06:30 Blood Culture - Preliminary Blood 04/15/23 06:15 Blood Culture - Preliminary Blood 04/15/23 10:05 Gram Stain - Final Sputum Sputum Culture - Final Assessment and Plan Assessment: Cardiac arrest, PEA, downtime three-minutes Acute hypoxic respiratory failure secondary to the above, mechanical ventilator- dependent Cardiogenic shock, pressor dependent, acute CHF exacerbation, systolic dysfunction Moderate bilateral pleural effusions right greater than left Presumptive aspiration pneumonia, continues on Zosyn Possible anoxic brain injury, workup in progress Chronic atrial fibrillation on anticoagulation Recent total left knee arthroplasty at [facility] Diabetes mellitus type 2 Obesity, BMI 35.8 Plan: Continue on current medication regime ,monitoring and symptomatic treatment. Maintain on empiric antibiotics. ICU management as per reactor technician, discussing reattempting vent weaning today. Wet-to-dry dressings on necrotic area. Prognosis guarded given multiple complex medical issues. The impression and plan of care has been dictated as directed. : I performed a history and examination of this patient, discussed the same with the dictator. I agree with the dictator's note ,documented as a scribe. Any additional findings or plans will be noted.
[2023-04-17 18:09] LABS: Glucose,Whole Blood 186 mg/dL (70-110)
[2023-04-17] MEDS: ACETAMINOPHEN TAB 500 MG TAB PO PRN (20:14)
[2023-04-17] MEDS: WARFARIN 5 MG TAB PO SCH (20:14)
[2023-04-17] MEDS: BENZOCAINE/MENTHOL LOZENG 1 EACH LOZENGE MUCOUS MEM PRN (20:15)
[2023-04-17 23:39] LABS: Glucose,Whole Blood 202 mg/dL (70-110)
[2023-04-18] MEDS: IPRATROPIUM-ALBUTEROL 3 ML NEB INHALATION SCH ×6 (00:01→20:34)
[2023-04-18] MEDS: INSULIN ASPART (NovoLOG) 100 UNIT/ML VIAL SQ SCH ×5 (00:01→21:30)
[2023-04-18] MEDS: PIPERACILLIN-TAZOBACTAM 3.375 GM in SODIUM CHLORIDE 0.9% 100 ML IVPB SCH ×4 (00:01→23:31)
[2023-04-18] MEDS: DEXMEDETOMIDINE/0.9% NACL(PMX) 400 MCG in EMPTY BAG 1 BAG IV SCH (04:09)
[2023-04-18 05:10] LABS: Anisocytosis Moderate; Basophils % (A) 0 %; Eosinophils % (A) 0 %; HCT 29.7 % (39.0-53.0); HGB 8.8 gm/dL (13.0-17.5); Hypochromasia Marked; Lymphocytes # (A) 1.1 k/uL (1.0-4.8); Lymphocytes % (A) 15 %; MCH 20.8 pg (25.0-35.0); MCHC 29.5 g/dL (31.0-37.0); MCV 70.5 fL (80.0-100.0); Microcytosis Marked; Monocytes # (A) 0.7 k/uL (0-1.0); Monocytes % (A) 9 %; Neutrophils # (A) 5.6 k/uL (1.3-7.7); Neutrophils % (A) 74 %; Platelet Count 259 k/uL (150-450); Poikilocytosis Slight; RBC 4.22 m/uL (4.30-5.90); RDW 20.4 % (11.5-15.5); WBC 7.5 k/uL (3.8-10.6)
[2023-04-18 05:22] LABS: INR 1.6 (<1.2); Prothrombin Time 16.3 sec (9.0-12.0)
[2023-04-18 05:25] LABS: African American GFR (CKD) >90 (>60 ml/min/1.73 sqM); Anion Gap 8 mmol/L; Blood Urea Nitrogen 24 mg/dL (9-20); Calcium 8.1 mg/dL (8.4-10.2); Carbon Dioxide 30 mmol/L (22-30); Chloride 98 mmol/L (98-107); Glucose 161 mg/dL (74-99); Non-African American GFR(CKD) 81 (>60 ml/min/1.73 sqM); Potassium 3.6 mmol/L (3.5-5.1); Sodium 136 mmol/L (137-145)
[2023-04-18 05:51] LABS: Glucose,Whole Blood 192 mg/dL (70-110)
[2023-04-18] MEDS: POTASSIUM CHLORIDE 10 MEQ in WATER FOR INJECTION 1 100ML.BAG IVPB SCH ×2 (06:02→08:34)
[2023-04-18] MEDS: SODIUM CHLORIDE 0.9% 1,000 ML IV SCH (06:04)
--- NOTE | 2023-04-18 06:54 | XR ---
EXAMINATION TYPE: XR chest 1V portable DATE OF EXAM: 04/18/2023 6:14 AM COMPARISON: Chest radiographs from 04/17/2023 TECHNIQUE: XR chest 1V portable Portable AP radiograph of the chest. CLINICAL INDICATION:Male, 82 years old with history of Tube placement; FINDINGS: Patient is rotated which limits evaluation. Lungs/Pleura: No pneumothorax. Blunting of both costophrenic angles. Pulmonary vascularity: Pulmonary vascular congestion. Heart/mediastinum: Cardiomediastinal silhouette is enlarged and stable. Atherosclerotic calcificatio ns are seen in the aorta. Musculoskeletal: No acute osseous pathology. Other findings: None Lines/Tubes: Endotracheal tube has been removed. Nasogastric tube has been removed. Right IJ central venous catheter is in stable position with tip in the right atrium. IMPRESSION: 1. Cardiomegaly with vascular congestion and small bilateral pleural effusions. Correlate for CHF ex acerbation and/or volume overload. 2. Interval removal of endotracheal and nasogastric tubes with stable right IJ central venous cathet er with tip in the right atrium.
[2023-04-18] MEDS: FUROSEMIDE 10 MG/ML 4 ML VIAL IV SCH ×2 (08:35→21:30)
[2023-04-18] MEDS: PANTOPRAZOLE 40 MG/10 ML VIAL IVP SCH (08:35)
[2023-04-18] MEDS: METOPROLOL TARTRATE 25 MG TAB PO SCH ×2 (08:36→21:30)
--- NOTE | 2023-04-18 08:52 | P.PN ---
Subjective History of Present Illness: The patient is an 82-year-old male with known history of hypertension, diabetes, chronic persistent atrial fibrillation who has underwent recent left total knee arthroplasty and presented with symptoms of progressive dyspnea. In the emergency room he became more dyspneic, hypotensive, had what appears to be according to the staff atrial fibrillation with wide complex, was intubated and received a bolus of amiodarone. He is seen in the ICU. He is in atrial fibrillation was controlled ventricle response. He has significant edema on presentation. Chest x-ray showed probable CHF and his CT angiogram showed no pu lmonary embolism with right-sided effusion with possible atelectasis. No other history is available. Medications: Metformin, Coumadin, Glucotrol, spironolactone, metoprolol, lisinopril HCTZ, insulin 04/16 Patient seen and examined. Patient remains on ventilator with FiO2 40% and remains unresponsive on ventilator. Has been receiving IV Lasix with good urine output. Creatinine has been stable at 1.0. Still does have 2+ lower extremity edema. Echocardiogram performed today however pending results. Remains in A. fib with controlled heart rates. On low-dose norepinephrine however receiving beta brody. 04/17 Patient seen and examined. FiO2 decreased to 35%. Patient was following some commands however not able to be extubated yesterday. Has still had good urine output with the Lasix 40 mg IV every 12 hours. Echocardiogram shows EF 35-40%. Remains in A. fib with controlled heart rates. Has come down somewhat on the norepinephrine. 04/18 Patient seen and examined. Patient extubated yesterday. He remains in A. fib with predominantly controlled ventricular rates. He did take medications yesterday however some issues swelling moderate this morning. Has still been on a low-dose of norepinephrine however hopefully discontinue today. Still has 2+ lower extremity edema. -1300 mL yesterday. INR 1.6 today. Has been receiving Coumadin. Physical Examination: Vitals reviewed Head: Normocephalic. Eyes: Sclerae nonicteric. Neck: Good carotid upstroke, no bruit, no jugular venous distention. Lungs: Decreased breath sounds at the bases Heart: Irregular rate and rhythm, S1-S2, no S3, no rub. Systolic ejection murmur. Abdomen: Soft, positive bowel sounds no organomegaly. Extremities: +2 edema, intact distal pulses. [place] left knee Impression: 1. Respiratory failure likely main component of heart failure 2. Chronic persistent atrial fibrillation, anticoagulated 3. Status post recent knee surgery 4. History of hypertension 5. History of diabetes 6. Mild troponin elevation, type II myocardial infarction, no evidence of acute ischemic event 7. Cardiac arrest with some wide complex rhythm, not requiring any cardioversion and brief CPR, unclear pulmonary vs respiratory arrest 8. Acute on chronic systolic heart failure 9. Cardiomyopathy EF 35-40%, unclear ischemic versus nonischemic Plan: Patient still is significant edema up to his buttocks and his thighs. We will add Zaroxolyn as well as continue with IV Lasix. He has been extubated and appears to be progressing well. Hopefully wean and discontinue norepinephrine. Optimize heart failure regimen as able. Evaluate swallow and give oral medications as able. Still needs significant diuresis. Continue Coumadin with goal INR 2-3. Objective - Vital Signs Vital signs: Vital Signs Temp 98.2 F 04/18/23 08:00 Pulse 82 04/18/23 08:15 Resp 12 04/18/23 08:15 BP 106/58 04/18/23 08:15 Pulse Ox 97 04/18/23 08:15 FiO2 35 04/17/23 12:00 Intake & Output 04/17/23 04/18/23 04/18/23 18:59 06:59 18:59 Intake Total 812.752 854.436 200.618 Output Total 2090 915 130 Balance -1277.248 -60.564 70.618 Weight 119.8 kg Intake: IV 386 376 146 0.9 KVO 220 240 40 Art Line 30 CVP 36 36 6 Piperacillin-Tazobactam 3 100 .375 gm In Sodium Chloride 0.9% 100 ml @ 25 mls/hr IVPB Q8HR [facility] Rx# :[id number] Potassium Chloride 10 meq 100 100 In Water For Injection 1 100ml.bag @ 100 mls/hr IVPB Q1H [facility] Rx#: [id number] Intake, IV Titration 131.752 128.436 54.618 Amount Dexmedetomidine/0.9% NaCl 36.14 (Pmx) 400 mcg In Empty Bag 1 bag @ 0.2 MCG/KG/HR 5.99 mls/hr IV .[id number] [facility] Rx#:[id number] Norepinephrine 4 mg In 128.436 54.618 Sodium Chloride 0.9% 250 ml @ 0.03 MCG/KG/MIN 11. 147 mls/hr IV .[id number] [facility] Rx#:[id number] propofoL 1,000 mg In 95.612 Empty Bag 1 bag @ 15 MCG/ KG/MIN 8.777 mls/hr IV . [id number] [facility] Rx#:[id number] Oral 350 Tube Feeding 175 Other 120 Output: Urine 2090 915 130 Other: Voiding Method Indwelling Catheter Indwelling Catheter ABP, PAP, CO, CI - Last Documented Arterial Blood Pressure 189/181 - Labs CBC & Chem 7: 04/18/23 04:50 04/18/23 04:50 Labs: Abnormal Lab Results - Last 24 Hours (Table) 04/17/23 04/17/23 04/17/23 Range/Units 11:15 11:53 18:08 RBC (4.30-5.90) m/uL Hgb (13.0-17.5) gm/dL Hct (39.0-53.0) % MCV (80.0-100.0) fL MCH (25.0-35.0) pg MCHC (31.0-37.0) g/dL RDW (11.5-15.5) % PT (9.0-12.0) sec INR (<1.2) ABG pH 7.55 H (7.35-7.45) ABG pO2 138 H (83-108) mmHg ABG HCO3 32 H (21-25) mmol/L ABG Total CO2 33 H (19-24) mmol/L ABG O2 Saturation 100.0 H (94-97) % Sodium (137-145) mmol/L BUN (9-20) mg/dL Glucose (74-99) mg/dL POC Glucose (mg/dL) 243 H 186 H (70-110) mg/dL Calcium (8.4-10.2) mg/dL 04/17/23 04/18/23 04/18/23 Range/Units 23:37 04:50 04:50 RBC 4.22 L (4.30-5.90) m/uL Hgb 8.8 L (13.0-17.5) gm/dL Hct 29.7 L (39.0-53.0) % MCV 70.5 L (80.0-100.0) fL MCH 20.8 L (25.0-35.0) pg MCHC 29.5 L (31.0-37.0) g/dL RDW 20.4 H (11.5-15.5) % PT 16.3 H (9.0-12.0) sec INR 1.6 H (<1.2) ABG pH (7.35-7.45) ABG pO2 (83-108) mmHg ABG HCO3 (21-25) mmol/L ABG Total CO2 (19-24) mmol/L ABG O2 Saturation (94-97) % Sodium (137-145) mmol/L BUN (9-20) mg/dL Glucose (74-99) mg/dL POC Glucose (mg/dL) 202 H (70-110) mg/dL Calcium (8.4-10.2) mg/dL 04/18/23 04/18/23 Range/Units 04:50 05:49 RBC (4.30-5.90) m/uL Hgb (13.0-17.5) gm/dL Hct (39.0-53.0) % MCV (80.0-100.0) fL MCH (25.0-35.0) pg MCHC (31.0-37.0) g/dL RDW (11.5-15.5) % PT (9.0-12.0) sec INR (<1.2) ABG pH (7.35-7.45) ABG pO2 (83-108) mmHg ABG HCO3 (21-25) mmol/L ABG Total CO2 (19-24) mmol/L ABG O2 Saturation (94-97) % Sodium 136 L (137-145) mmol/L BUN 24 H (9-20) mg/dL Glucose 161 H (74-99) mg/dL POC Glucose (mg/dL) 192 H (70-110) mg/dL Calcium 8.1 L (8.4-10.2) mg/dL Microbiology - Last 24 Hours (Table) 04/15/23 06:30 Blood Culture - Preliminary Blood 04/15/23 06:15 Blood Culture - Preliminary Blood 04/15/23 10:05 Gram Stain - Final Sputum Sputum Culture - Final
[2023-04-18] MEDS: metOLazone 5 MG TAB PO SCH (10:58)
[2023-04-18 11:45] LABS: Glucose,Whole Blood 194 mg/dL (70-110)
--- NOTE | 2023-04-18 12:42 | P.PN ---
Subjective Progress Note Date: 04/18/23 The patient is seen at bedside and is extubated. Per nurse he is doing better. Patient feels better and asking of him wanting to go home. Objective - Vital Signs Vital signs: Vital Signs Temp 98.2 F 04/18/23 08:00 Pulse 78 04/18/23 12:35 Resp 14 04/18/23 11:00 BP 99/70 04/18/23 11:00 Pulse Ox 97 04/18/23 11:00 FiO2 35 04/17/23 12:00 Intake & Output 04/17/23 04/18/23 04/18/23 18:59 06:59 18:59 Intake Total 812.752 854.436 764.208 Output Total 2090 915 1030 Balance -1277.248 -60.564 -265.792 Weight 119.8 kg Intake: IV 386 376 308 0.9 KVO 220 240 90 Art Line 30 CVP 36 36 18 Piperacillin-Tazobactam 3 100 100 .375 gm In Sodium Chloride 0.9% 100 ml @ 25 mls/hr IVPB Q8HR [facility] Rx# :[id number] Potassium Chloride 10 meq 100 100 In Water For Injection 1 100ml.bag @ 100 mls/hr IVPB Q1H [facility] Rx#: [id number] Intake, IV Titration 131.752 128.436 56.208 Amount Dexmedetomidine/0.9% NaCl 36.14 (Pmx) 400 mcg In Empty Bag 1 bag @ 0.2 MCG/KG/HR 5.99 mls/hr IV .[id number] [facility] Rx#:[id number] Norepinephrine 4 mg In 128.436 56.208 Sodium Chloride 0.9% 250 ml @ 0.03 MCG/KG/MIN 11. 147 mls/hr IV .[id number] [facility] Rx#:[id number] propofoL 1,000 mg In 95.612 Empty Bag 1 bag @ 15 MCG/ KG/MIN 8.777 mls/hr IV . [id number] [facility] Rx#:[id number] Oral 350 400 Tube Feeding 175 Other 120 Output: Urine 2090 915 1030 Other: Voiding Method Indwelling Catheter Indwelling Catheter Indwelling Catheter ABP, PAP, CO, CI - Last Documented Arterial Blood Pressure 189/181 - Exam Neuro: Is awake, alert, oriented to self and stated he was in the hospital. He stated the month is February and the year is 2010. He correctly stated his date of , name objects (watch, pen, glasses). He is following simple commands. No aphasia or neglect. No facial weakness. No dysarthria. Motor: Strength is moving all extremities above gravity without focality. Some of the workup during this hospital visit consisted of Serum glucose initially was 95 at most current one is 178. Ammonia <9 Calcium is within normal limits. Magnesium is within normal limits. CT head is reported as no acute intracranial process. I reviewed CT head and agree with report. - Labs CBC & Chem 7: 04/18/23 04:50 04/18/23 04:50 Labs: Abnormal Lab Results - Last 24 Hours (Table) 04/17/23 04/17/23 04/17/23 Range/Units 11:15 18:08 23:37 RBC (4.30-5.90) m/uL Hgb (13.0-17.5) gm/dL Hct (39.0-53.0) % MCV (80.0-100.0) fL MCH (25.0-35.0) pg MCHC (31.0-37.0) g/dL RDW (11.5-15.5) % PT (9.0-12.0) sec INR (<1.2) ABG pH 7.55 H (7.35-7.45) ABG pO2 138 H (83-108) mmHg ABG HCO3 32 H (21-25) mmol/L ABG Total CO2 33 H (19-24) mmol/L ABG O2 Saturation 100.0 H (94-97) % Sodium (137-145) mmol/L BUN (9-20) mg/dL Glucose (74-99) mg/dL POC Glucose (mg/dL) 186 H 202 H (70-110) mg/dL Calcium (8.4-10.2) mg/dL 04/18/23 04/18/23 04/18/23 Range/Units 04:50 04:50 04:50 RBC 4.22 L (4.30-5.90) m/uL Hgb 8.8 L (13.0-17.5) gm/dL Hct 29.7 L (39.0-53.0) % MCV 70.5 L (80.0-100.0) fL MCH 20.8 L (25.0-35.0) pg MCHC 29.5 L (31.0-37.0) g/dL RDW 20.4 H (11.5-15.5) % PT 16.3 H (9.0-12.0) sec INR 1.6 H (<1.2) ABG pH (7.35-7.45) ABG pO2 (83-108) mmHg ABG HCO3 (21-25) mmol/L ABG Total CO2 (19-24) mmol/L ABG O2 Saturation (94-97) % Sodium 136 L (137-145) mmol/L BUN 24 H (9-20) mg/dL Glucose 161 H (74-99) mg/dL POC Glucose (mg/dL) (70-110) mg/dL Calcium 8.1 L (8.4-10.2) mg/dL 04/18/23 04/18/23 Range/Units 05:49 11:44 RBC (4.30-5.90) m/uL Hgb (13.0-17.5) gm/dL Hct (39.0-53.0) % MCV (80.0-100.0) fL MCH (25.0-35.0) pg MCHC (31.0-37.0) g/dL RDW (11.5-15.5) % PT (9.0-12.0) sec INR (<1.2) ABG pH (7.35-7.45) ABG pO2 (83-108) mmHg ABG HCO3 (21-25) mmol/L ABG Total CO2 (19-24) mmol/L ABG O2 Saturation (94-97) % Sodium (137-145) mmol/L BUN (9-20) mg/dL Glucose (74-99) mg/dL POC Glucose (mg/dL) 192 H 194 H (70-110) mg/dL Calcium (8.4-10.2) mg/dL Microbiology - Last 24 Hours (Table) 04/15/23 06:30 Blood Culture - Preliminary Blood 04/15/23 06:15 Blood Culture - Preliminary Blood Assessment and Plan Assessment: Acute cardiopulmonary arrest most likely pulmonary followed by cardiac event and he was down for 3 minutes and was in PEA. Encephalopathy due to above as well as due to medication effect (Precedexl)---improved Moderate sized bilateral pleural effusion Chronic atrial fibrillation on Coumadin. INR is 2.6 on presentation. Recent left knee arthroplasty Diabetes mellitus Hypertension Osteoarthritis Plan: CT head is negative. EEG is cancelled since mentation has improved. We'll defer the rest of the medical management to the primary and ICU team. Cardiology is on board Patient condition is very guarded Plan discussed with the patient nurse If he continues to be doing well from neurological perspective then no further work-up. Will find out with family if he is back to baseline. Dr. Greene will start neurology service tomorrow A.M. Update: Per nurse, family members stated that he is improving but not totally back to baseline. Time with Patient: Less than 30
[2023-04-18 14:01] VITALS: BMI 33.3
--- NOTE | 2023-04-18 14:19 | P.PN ---
Subjective Progress Note Date: 04/18/23 Principal diagnosis: Cardiopulmonary arrest This is a 82-year-old male patient who presented to the Department having shortness of breath. The patient had a recent left total knee replacement in an outside facility. The patient is diabetic and has hypertension and chronic atrial fibrillation. In the emergency, the patient went progressively more short of breath, and it seems to be that the patient went into respiratory and subsequent cardiac arrest. He was offered CPR for a total of 3 minutes. His underlying cardiac rhythm was PEA as the patient has no pulses. He did have a wide-complex apical rhythm with underlying atrial fibrillation. Subsequently, there was return of spontaneous circulation. The patient was intubated in the emergency and he was brought up to the intensive care unit. Prior to his arrival, he was also given a CT angiogram that showed no evidence of any pulmonary embolism. It showed moderate-sized bilateral pleural effusion right more than left and compressive atelectatic changes in lung bases. The patient had an obvious cardiomegaly. Post intubation chest x-ray was consistent with CHF and bilateral pleural effusions. He does have chronic edema lower extremity is bilaterally. The left knee francesco are still in place. There is a area of ecchymosis around the wound with a superficial skin abrasion and the surface of the wound is covered with eschar which is quite dark and nonpurulent. The patient is currently on norepinephrine which is running at 0.13 microvascular kilogram per minute. He was given IV Lasix 60 mg and his urine output is in order of 1 75 mL since his arrival from the emergency department. He has a Grande catheter in place. The white cell count is 16.9 with a hemoglobin of 8.2 and a platelet count of 238. INR is at 2.9. Post intubation blood gas shows a pH of 7.4 with a pCO2 of 37 and pO2 of 400. The patient is currently on assist control mode at the rate of 20 with a tidal volume of 500 and FiO2 was at 100% with a PEEP of 5 and FiO2 was dropped down to 50%. The sodium level is at 127, potassium levels at 4.6, BUN is 27 with a creatinine of 0.88. Troponins are 0.05 and 0.04 respectively and a proBNP level is 2790. LFTs are normal. UA was negative. His current cardiac rhythm is atrial fibrillation at rate of 54. Patient is currently on propofol which is running at 60 mcg/kg/m. Patient was reevaluated today on 04/16/2023, remains in the ICU, intubated and mechanically ventilated. Patient is an assist-control rate of 20 tidal volume 500 FiO2 40% PEEP of 5 ABG showed a pO2 of 176 pCO2 38 pH of 7.49, FiO2 was cut down from 50% down to 40%. Patient is still requiring norepinephrine at 0.07 mcg/kg/m is also on propofol at 50 mcg/kg/m. Lasix at 40 mg IV push every 12 hours, remains on Zosyn and Zithromax. According to nurses, patient was taken off propofol yesterday, and he was extremely agitated would not follow any instructions, today I recommended a neurological evaluation on this patient in the meantime we'll try to hold sedation again and assess mental status off sedat ion. WBC count is 10 hemoglobin is 8.7 INR is 1.6. Basic metabolic profile is normal BUN is 28 creatinine 0.93, patient has good urine output, obviously is perfusing his kidneys quite well. Echocardiogram showed LV dysfunction with ejection fraction of 40% and there is evidence of moderate mitral regurgitation and moderate tricuspid regurgitation CT angiogram on presentation showed no evidence of pulmonary embolism. Chest x-ray is suggestive of mild congestive heart failure patient is known to have history of chronic atrial fibrillation, he is status post recent left knee arthroplasty, and he has history of hypertension. Apparently with the patient had his cardiac arrest wide-complex rhythm not requiring any cardioversion and he had a brief CPR. Chest x-ray this morning showed cardiomegaly and pulmonary vascular congestion with small bilateral effusions consistent with mild CHF Reevaluated today on 04/17/2023 remains in the ICU, intubated and mechanically ventilated. Patient is on assist control rate of 20 tidal volume 500 FiO2 35% PEEP of 5 ABG showed a pO2 of 135 pCO2 35 pH of 7.49. Remains on norepinephrine at 0.04, propofol was just placed on hold this morning, and I plan to give the patient a weaning trial today after propofol, may or may not end up using Precedex. Shortly after propofol was discontinued, I was notified by the nurse of the patient is waking up, seems to be appropriate and following simple instructions. Hence I transition the patient to pressure support of 10 and CPAP CBC today is relatively normal WBC count of 9 hemoglobin is 9.1, basic metabolic profile is normal renal profile is normal and his blood sugar is 243. Chest x- ray showed cardiomegaly, and mild pulmonary vascular congestion and possible pneumonia is not entirely ruled out, could be aspiration pneumonia. CT of the brain showed no acute intracranial process. Reevaluated today on 04/18/2023, patient was extubated yesterday, and has been tolerating the extubation quite well for the last 24 hours. Patient is on room air, he was extubated on 04/17/2023, he is now off norepinephrine, mentally seems to be intact. Patient is appropriate, denies any specific complaints, patient is wanting to go home. Labs today showed W6 out of 7.5 hemoglobin 8.8, INR is 1.6 events I. Normal renal profile is normal chest x-ray showed mild pulmonary vascular congestion, mild fluid overload, otherwise no significant findings. Patient remains in atrial fibrillation, however his rate seems to be fairly well controlled. Patient does have cardiomyopathy and LV dysfunction with ejection fraction of 35-40%. Being followed by cardiology. Remains on diuretics, including Zaroxolyn and Lasix. Back on Coumadin, goal is INR of 2-3 Objective - Vital Signs Vital signs: Vital Signs Temp 98.4 F 04/18/23 12:00 Pulse 84 04/18/23 13:15 Resp 12 04/18/23 13:15 BP 104/68 04/18/23 13:15 Pulse Ox 96 04/18/23 13:15 FiO2 35 04/17/23 12:00 Intake & Output 04/17/23 04/18/23 04/18/23 18:59 06:59 18:59 Intake Total 812.752 977.770 1296.208 Output Total 2090 915 1180 Balance -1277.248 -60.564 -152.792 Weight 119.8 kg 111.3 kg Intake: IV 386 376 331 0.9 KVO 220 240 110 Art Line 30 CVP 36 36 21 Piperacillin-Tazobactam 3 100 100 .375 gm In Sodium Chloride 0.9% 100 ml @ 25 mls/hr IVPB Q8HR [facility] Rx# :[id number] Potassium Chloride 10 meq 100 100 In Water For Injection 1 100ml.bag @ 100 mls/hr IVPB Q1H [facility] Rx#: [id number] Intake, IV Titration 131.752 128.436 56.208 Amount Dexmedetomidine/0.9% NaCl 36.14 (Pmx) 400 mcg In Empty Bag 1 bag @ 0.2 MCG/KG/HR 5.99 mls/hr IV .[id number] [facility] Rx#:[id number] Norepinephrine 4 mg In 128.436 56.208 Sodium Chloride 0.9% 250 ml @ 0.03 MCG/KG/MIN 11. 147 mls/hr IV .[id number] [facility] Rx#:[id number] propofoL 1,000 mg In 95.612 Empty Bag 1 bag @ 15 MCG/ KG/MIN 8.777 mls/hr IV . [id number] [facility] Rx#:[id number] Oral 350 640 Tube Feeding 175 Other 120 Output: Urine 2090 915 1180 Other: Voiding Method Indwelling Catheter Indwelling Catheter Indwelling Catheter ABP, PAP, CO, CI - Last Documented Arterial Blood Pressure 189/181 - Exam Physical Exam: Revealed an 82-year-old white male on room air, not in any distress. Head: Atraumatic normocephalic, HEENT:[Neck is supple.] [No neck masses.] [No thyromegaly.] [No JVD.] Chest: Crackles at the bases no rhonchi and no wheezes Cardiac Exam: [Normal S1 and S2, no S3 gallop, 2/6 systolic murmur thought the precordium. Abdomen: [Soft, nontender, no megaly, no rebound, no guarding, normal bowel sounds.] Extremities: [No clubbing, no edema, no cyanosis.] Neurological Exam: Alert and oriented 3, no gross focal neurologic deficit Psychiatric: Normal mood, affect and normal mental status examination Skin: No rashes. Surgical wound on left knee seems to be intact. - Labs CBC & Chem 7: 04/18/23 04:50 04/18/23 04:50 Labs: Abnormal Lab Results - Last 24 Hours (Table) 04/17/23 04/17/23 04/17/23 Range/Units 11:15 18:08 23:37 RBC (4.30-5.90) m/uL Hgb (13.0-17.5) gm/dL Hct (39.0-53.0) % MCV (80.0-100.0) fL MCH (25.0-35.0) pg MCHC (31.0-37.0) g/dL RDW (11.5-15.5) % PT (9.0-12.0) sec INR (<1.2) ABG pH 7.55 H (7.35-7.45) ABG pO2 138 H (83-108) mmHg ABG HCO3 32 H (21-25) mmol/L ABG Total CO2 33 H (19-24) mmol/L ABG O2 Saturation 100.0 H (94-97) % Sodium (137-145) mmol/L BUN (9-20) mg/dL Glucose (74-99) mg/dL POC Glucose (mg/dL) 186 H 202 H (70-110) mg/dL Calcium (8.4-10.2) mg/dL 04/18/23 04/18/23 04/18/23 Range/Units 04:50 04:50 04:50 RBC 4.22 L (4.30-5.90) m/uL Hgb 8.8 L (13.0-17.5) gm/dL Hct 29.7 L (39.0-53.0) % MCV 70.5 L (80.0-100.0) fL MCH 20.8 L (25.0-35.0) pg MCHC 29.5 L (31.0-37.0) g/dL RDW 20.4 H (11.5-15.5) % PT 16.3 H (9.0-12.0) sec INR 1.6 H (<1.2) ABG pH (7.35-7.45) ABG pO2 (83-108) mmHg ABG HCO3 (21-25) mmol/L ABG Total CO2 (19-24) mmol/L ABG O2 Saturation (94-97) % Sodium 136 L (137-145) mmol/L BUN 24 H (9-20) mg/dL Glucose 161 H (74-99) mg/dL POC Glucose (mg/dL) (70-110) mg/dL Calcium 8.1 L (8.4-10.2) mg/dL 04/18/23 04/18/23 Range/Units 05:49 11:44 RBC (4.30-5.90) m/uL Hgb (13.0-17.5) gm/dL Hct (39.0-53.0) % MCV (80.0-100.0) fL MCH (25.0-35.0) pg MCHC (31.0-37.0) g/dL RDW (11.5-15.5) % PT (9.0-12.0) sec INR (<1.2) ABG pH (7.35-7.45) ABG pO2 (83-108) mmHg ABG HCO3 (21-25) mmol/L ABG Total CO2 (19-24) mmol/L ABG O2 Saturation (94-97) % Sodium (137-145) mmol/L BUN (9-20) mg/dL Glucose (74-99) mg/dL POC Glucose (mg/dL) 192 H 194 H (70-110) mg/dL Calcium (8.4-10.2) mg/dL Microbiology - Last 24 Hours (Table) 04/15/23 06:30 Blood Culture - Preliminary Blood 04/15/23 06:15 Blood Culture - Preliminary Blood Assessment and Plan Assessment: Impression: Cardiac arrest Acute hypoxic respiratory failure secondary to above, requiring intubation and mechanical ventilation, extubated on 04/17/2023. Acute hypotension requiring norepinephrine most likely related to his LV dysfunction/cardiogenic shock. Presently off norepinephrine. Acute systolic congestive heart failure, ejection fraction of 35-40% Chronic atrial fibrillation, on anticoagulation therapy. Recent left total knee arthroplasty Type 2 diabetes without complications Degenerative joint disease Long-term anticoagulation, for chronic atrial fibrillation Possible anoxic brain injury, however it's too early to tell. Recommendation: Incentive spirometry Continue diuretics including Lasix and Zaroxolyn Transfer patient out of the ICU to a monitor bed on selective in the next 24 hours Continue Zosyn for presumptive aspiration. Continue sliding scale insulin coverage Bedside swallow evaluation and advance feedings as tolerated and the patient passes the swallow evaluation. Will continue to follow Not quite ready for discharge planning Time with Patient: Less than 30
[2023-04-18 16:39] LABS: Glucose,Whole Blood 273 mg/dL (70-110)
[2023-04-18] MEDS: WARFARIN 5 MG TAB PO SCH (18:05)
[2023-04-18 21:27] LABS: Glucose,Whole Blood 267 mg/dL (70-110)
[2023-04-19] MEDS: IPRATROPIUM-ALBUTEROL 3 ML NEB INHALATION SCH ×6 (00:30→20:59)
[2023-04-19] MEDS: BENZOCAINE/MENTHOL LOZENG 1 EACH LOZENGE MUCOUS MEM PRN (03:33)
[2023-04-19 04:35] LABS: Anisocytosis Moderate; Basophils % (A) 0 %; Eosinophils # (A) 0.1 k/uL (0-0.7); Eosinophils % (A) 1 %; Hypochromasia Marked; Lymphocytes # (A) 1.1 k/uL (1.0-4.8); Lymphocytes % (A) 16 %; MCH 20.1 pg (25.0-35.0); MCHC 28.5 g/dL (31.0-37.0); MCV 70.4 fL (80.0-100.0); Mean Platelet Volume 9.1; Microcytosis Marked; Monocytes # (A) 0.5 k/uL (0-1.0); Monocytes % (A) 8 %; Neutrophils # (A) 4.7 k/uL (1.3-7.7); Neutrophils % (A) 72 %; Platelet Count 225 k/uL (150-450); Poikilocytosis Slight; RBC 3.98 m/uL (4.30-5.90); RDW 20.2 % (11.5-15.5); WBC 6.6 k/uL (3.8-10.6)
[2023-04-19 04:38] LABS: INR 1.8 (<1.2); Prothrombin Time 17.7 sec (9.0-12.0)
[2023-04-19 04:46] LABS: African American GFR (CKD) >90 (>60 ml/min/1.73 sqM); Anion Gap 7 mmol/L; Blood Urea Nitrogen 24 mg/dL (9-20); Calcium 8.4 mg/dL (8.4-10.2); Carbon Dioxide 33 mmol/L (22-30); Chloride 93 mmol/L (98-107); Glucose 193 mg/dL (74-99); Non-African American GFR(CKD) 80 (>60 ml/min/1.73 sqM); Potassium 3.2 mmol/L (3.5-5.1); Sodium 133 mmol/L (137-145)
[2023-04-19] MEDS: SODIUM CHLORIDE 0.9% 1,000 ML IV SCH (06:21)
[2023-04-19 06:31] LABS: Glucose,Whole Blood 224 mg/dL (70-110)
[2023-04-19] MEDS: PIPERACILLIN-TAZOBACTAM 3.375 GM in SODIUM CHLORIDE 0.9% 100 ML IVPB SCH ×3 (06:56→23:08)
[2023-04-19] MEDS: INSULIN ASPART (NovoLOG) 100 UNIT/ML VIAL SQ SCH ×4 (06:56→20:33)
[2023-04-19] MEDS: POTASSIUM CHLORIDE ER 20 MEQ TAB.ER PO SCH ×4 (06:56→16:59)
[2023-04-19] MEDS: metOLazone 5 MG TAB PO SCH (09:04)
[2023-04-19] MEDS: METOPROLOL TARTRATE 25 MG TAB PO SCH ×2 (09:05→20:33)
[2023-04-19] MEDS: PANTOPRAZOLE 40 MG/10 ML VIAL IVP SCH (09:07)
[2023-04-19] MEDS: FUROSEMIDE 10 MG/ML 4 ML VIAL IV SCH (09:07)
--- NOTE | 2023-04-19 10:26 | P.PN ---
Subjective History of Present Illness: The patient is an 82-year-old male with known history of hypertension, diabetes, chronic persistent atrial fibrillation who has underwent recent left total knee arthroplasty and presented with symptoms of progressive dyspnea. In the emergency room he became more dyspneic, hypotensive, had what appears to be according to the staff atrial fibrillation with wide complex, was intubated and received a bolus of amiodarone. He is seen in the ICU. He is in atrial fibrillation was controlled ventricle response. He has significant edema on presentation. Chest x-ray showed probable CHF and his CT angiogram showed no pu lmonary embolism with right-sided effusion with possible atelectasis. No other history is available. Medications: Metformin, Coumadin, Glucotrol, spironolactone, metoprolol, lisinopril HCTZ, insulin 04/16 Patient seen and examined. Patient remains on ventilator with FiO2 40% and remains unresponsive on ventilator. Has been receiving IV Lasix with good urine output. Creatinine has been stable at 1.0. Still does have 2+ lower extremity edema. Echocardiogram performed today however pending results. Remains in A. fib with controlled heart rates. On low-dose norepinephrine however receiving beta brody. 04/17 Patient seen and examined. FiO2 decreased to 35%. Patient was following some commands however not able to be extubated yesterday. Has still had good urine output with the Lasix 40 mg IV every 12 hours. Echocardiogram shows EF 35-40%. Remains in A. fib with controlled heart rates. Has come down somewhat on the norepinephrine. 04/18 Patient seen and examined. Patient extubated yesterday. He remains in A. fib with predominantly controlled ventricular rates. He did take medications yesterday however some issues swelling moderate this morning. Has still been on a low-dose of norepinephrine however hopefully discontinue today. Still has 2+ lower extremity edema. -1300 mL yesterday. INR 1.6 today. Has been receiving Coumadin. 04/19 Patient seen and examined. Patient remains in A. fib with relatively controlled ventricular rates. He has been receiving Lasix with Zaroxolyn and good urine output, unclear if ins and outs accurately with -400 mL over the last 24 hours. He is somewhat lethargic. Still has 2+ lower extremity edema. He was weaned from norepinephrine yesterday. Blood pressure is borderline in the 110s and 120s range. Denies any chest pain or pressure. Physical Examination: Vitals reviewed Head: Normocephalic. Eyes: Sclerae nonicteric. Neck: Good carotid upstroke, no bruit, no jugular venous distention. Lungs: Decreased breath sounds at the bases Heart: Irregular rate and rhythm, S1-S2, no S3, no rub. Systolic ejection murmur. Abdomen: Soft, positive bowel sounds no organomegaly. Extremities: +2 edema, intact distal pulses. Greer left knee Impression: 1. Respiratory failure likely main component of heart failure 2. Chronic persistent atrial fibrillation, anticoagulated 3. Status post recent knee surgery 4. History of hypertension 5. History of diabetes 6. Mild troponin elevation, type II myocardial infarction, no evidence of acute ischemic event 7. Cardiac arrest with some wide complex rhythm, not requiring any car dioversion and brief CPR, unclear pulmonary vs respiratory arrest 8. Acute on chronic systolic heart failure 9. Cardiomyopathy EF 35-40%, unclear ischemic versus nonischemic Plan: Zaroxolyn was added and does have hypokalemia and we will recheck blood work this afternoon. He has had a good urine output however unclear if accurate ins and outs. Patient still with significant abnormalities including hypokalemia, recently off norepinephrine and still have some lower extremity edema and significant fatigue. High risk of readmission and likely monitor for 1 more day. Continue IV Lasix for one more day and likely discharge home 24 hours of continues improved. Continue Coumadin with goal INR 2-3 with INR 1.8 today. Objective - Vital Signs Vital signs: Vital Signs Temp 98.5 F 04/19/23 08:00 Pulse 78 04/19/23 09:17 Resp 12 04/19/23 09:00 BP 99/70 04/19/23 09:00 Pulse Ox 99 04/19/23 09:05 FiO2 35 04/17/23 12:00 Intake & Output 04/18/23 04/19/23 04/19/23 18:59 06:59 18:59 Intake Total 7819.390 4316 150 Output Total 1555 1660 680 Balance 147.208 -601 -530 Weight 111.3 kg Intake: IV 516 359 30 0.9 KVO 180 250 30 CVP 36 9 Piperacillin-Tazobactam 3 200 100 .375 gm In Sodium Chloride 0.9% 100 ml @ 25 mls/hr IVPB Q8HR [facility] Rx# :[id number] Potassium Chloride 10 meq 100 In Water For Injection 1 100ml.bag @ 100 mls/hr IVPB Q1H [facility] Rx#: [id number] Intake, IV Titration 56.208 Amount Norepinephrine 4 mg In 56.208 Sodium Chloride 0.9% 250 ml @ 0.03 MCG/KG/MIN 11. 147 mls/hr IV .[id number] [facility] Rx#:[id number] Oral 1130 700 120 Output: Urine 1555 1660 680 Other: Voiding Method Indwelling Catheter Indwelling Catheter Indwelling Catheter ABP, PAP, CO, CI - Last Documented Arterial Blood Pressure 189/181 - Labs CBC & Chem 7: 04/19/23 04:25 04/19/23 04:25 Labs: Abnormal Lab Results - Last 24 Hours (Table) 04/18/23 04/18/23 04/18/23 Range/Units 11:44 16:27 21:25 RBC (4.30-5.90) m/uL Hgb (13.0-17.5) gm/dL Hct (39.0-53.0) % MCV (80.0-100.0) fL MCH (25.0-35.0) pg MCHC (31.0-37.0) g/dL RDW (11.5-15.5) % PT (9.0-12.0) sec INR (<1.2) Sodium (137-145) mmol/L Potassium (3.5-5.1) mmol/L Chloride (98-107) mmol/L Carbon Dioxide (22-30) mmol/L BUN (9-20) mg/dL Glucose (74-99) mg/dL POC Glucose (mg/dL) 194 H 273 H 267 H (70-110) mg/dL 04/19/23 04/19/23 04/19/23 Range/Units 04:25 04:25 04:25 RBC 3.98 L (4.30-5.90) m/uL Hgb 8.0 L (13.0-17.5) gm/dL Hct 28.0 L (39.0-53.0) % MCV 70.4 L (80.0-100.0) fL MCH 20.1 L (25.0-35.0) pg MCHC 28.5 L (31.0-37.0) g/dL RDW 20.2 H (11.5-15.5) % PT 17.7 H (9.0-12.0) sec INR 1.8 H (<1.2) Sodium 133 L (137-145) mmol/L Potassium 3.2 L (3.5-5.1) mmol/L Chloride 93 L (98-107) mmol/L Carbon Dioxide 33 H (22-30) mmol/L BUN 24 H (9-20) mg/dL Glucose 193 H (74-99) mg/dL POC Glucose (mg/dL) (70-110) mg/dL 04/19/23 Range/Units 06:29 RBC (4.30-5.90) m/uL Hgb (13.0-17.5) gm/dL Hct (39.0-53.0) % MCV (80.0-100.0) fL MCH (25.0-35.0) pg MCHC (31.0-37.0) g/dL RDW (11.5-15.5) % PT (9.0-12.0) sec INR (<1.2) Sodium (137-145) mmol/L Potassium (3.5-5.1) mmol/L Chloride (98-107) mmol/L Carbon Dioxide (22-30) mmol/L BUN (9-20) mg/dL Glucose (74-99) mg/dL POC Glucose (mg/dL) 224 H (70-110) mg/dL Microbiology - Last 24 Hours (Table) 04/15/23 06:30 Blood Culture - Preliminary Blood 04/15/23 06:15 Blood Culture - Preliminary Blood
[2023-04-19 11:44] LABS: Glucose,Whole Blood 271 mg/dL (70-110)
[2023-04-19 12:01] LABS: Glucose,Whole Blood 257 mg/dL (70-110)
--- NOTE | 2023-04-19 12:35 | P.PN ---
Subjective Progress Note Date: 04/19/23 Principal diagnosis: Cardiopulmonary arrest This is a 82-year-old male patient who presented to the Department having shortness of breath. The patient had a recent left total knee replacement in an outside facility. The patient is diabetic and has hypertension and chronic atrial fibrillation. In the emergency, the patient went progressively more short of breath, and it seems to be that the patient went into respiratory and subsequent cardiac arrest. He was offered CPR for a total of 3 minutes. His underlying cardiac rhythm was PEA as the patient has no pulses. He did have a wide-complex apical rhythm with underlying atrial fibrillation. Subsequently, there was return of spontaneous circulation. The patient was intubated in the emergency and he was brought up to the intensive care unit. Prior to his arrival, he was also given a CT angiogram that showed no evidence of any pulmonary embolism. It showed moderate-sized bilateral pleural effusion right more than left and compressive atelectatic changes in lung bases. The patient had an obvious cardiomegaly. Post intubation chest x-ray was consistent with CHF and bilateral pleural effusions. He does have chronic edema lower extremity is bilaterally. The left knee francesco are still in place. There is a area of ecchymosis around the wound with a superficial skin abrasion and the surface of the wound is covered with eschar which is quite dark and nonpurulent. The patient is currently on norepinephrine which is running at 0.13 microvascular kilogram per minute. He was given IV Lasix 60 mg and his urine output is in order of 1 75 mL since his arrival from the emergency department. He has a Grande catheter in place. The white cell count is 16.9 with a hemoglobin of 8.2 and a platelet count of 238. INR is at 2.9. Post intubation blood gas shows a pH of 7.4 with a pCO2 of 37 and pO2 of 400. The patient is currently on assist control mode at the rate of 20 with a tidal volume of 500 and FiO2 was at 100% with a PEEP of 5 and FiO2 was dropped down to 50%. The sodium level is at 127, potassium levels at 4.6, BUN is 27 with a creatinine of 0.88. Troponins are 0.05 and 0.04 respectively and a proBNP level is 2790. LFTs are normal. UA was negative. His current cardiac rhythm is atrial fibrillation at rate of 54. Patient is currently on propofol which is running at 60 mcg/kg/m. Patient was reevaluated today on 04/16/2023, remains in the ICU, intubated and mechanically ventilated. Patient is an assist-control rate of 20 tidal volume 500 FiO2 40% PEEP of 5 ABG showed a pO2 of 176 pCO2 38 pH of 7.49, FiO2 was cut down from 50% down to 40%. Patient is still requiring norepinephrine at 0.07 mcg/kg/m is also on propofol at 50 mcg/kg/m. Lasix at 40 mg IV push every 12 hours, remains on Zosyn and Zithromax. According to nurses, patient was taken off propofol yesterday, and he was extremely agitated would not follow any instructions, today I recommended a neurological evaluation on this patient in the meantime we'll try to hold sedation again and assess mental status off sedat ion. WBC count is 10 hemoglobin is 8.7 INR is 1.6. Basic metabolic profile is normal BUN is 28 creatinine 0.93, patient has good urine output, obviously is perfusing his kidneys quite well. Echocardiogram showed LV dysfunction with ejection fraction of 40% and there is evidence of moderate mitral regurgitation and moderate tricuspid regurgitation CT angiogram on presentation showed no evidence of pulmonary embolism. Chest x-ray is suggestive of mild congestive heart failure patient is known to have history of chronic atrial fibrillation, he is status post recent left knee arthroplasty, and he has history of hypertension. Apparently with the patient had his cardiac arrest wide-complex rhythm not requiring any cardioversion and he had a brief CPR. Chest x-ray this morning showed cardiomegaly and pulmonary vascular congestion with small bilateral effusions consistent with mild CHF Reevaluated today on 04/17/2023 remains in the ICU, intubated and mechanically ventilated. Patient is on assist control rate of 20 tidal volume 500 FiO2 35% PEEP of 5 ABG showed a pO2 of 135 pCO2 35 pH of 7.49. Remains on norepinephrine at 0.04, propofol was just placed on hold this morning, and I plan to give the patient a weaning trial today after propofol, may or may not end up using Precedex. Shortly after propofol was discontinued, I was notified by the nurse of the patient is waking up, seems to be appropriate and following simple instructions. Hence I transition the patient to pressure support of 10 and CPAP CBC today is relatively normal WBC count of 9 hemoglobin is 9.1, basic metabolic profile is normal renal profile is normal and his blood sugar is 243. Chest x- ray showed cardiomegaly, and mild pulmonary vascular congestion and possible pneumonia is not entirely ruled out, could be aspiration pneumonia. CT of the brain showed no acute intracranial process. Reevaluated today on 04/18/2023, patient was extubated yesterday, and has been tolerating the extubation quite well for the last 24 hours. Patient is on room air, he was extubated on 04/17/2023, he is now off norepinephrine, mentally seems to be intact. Patient is appropriate, denies any specific complaints, patient is wanting to go home. Labs today showed W6 out of 7.5 hemoglobin 8.8, INR is 1.6 events I. Normal renal profile is normal chest x-ray showed mild pulmonary vascular congestion, mild fluid overload, otherwise no significant findings. Patient remains in atrial fibrillation, however his rate seems to be fairly well controlled. Patient does have cardiomyopathy and LV dysfunction with ejection fraction of 35-40%. Being followed by cardiology. Remains on diuretics, including Zaroxolyn and Lasix. Back on Coumadin, goal is INR of 2-3 Reevaluated today on 04/19/2023, patient remains in atrial fibrillation remains in the ICU, his ventricular rate is fairly well controlled. Remains on diuretics, he is doing fairly well, does not seem to be in any distress, and his mental status is great. Patient is doing so well to the point that I may clear him for discharge if cleared by other consultants including cardiology. Remains on Coumadin, CBC is relatively normal hemoglobin is 8 however INR is up to 1.8 electrolytes are normal potassium is a bit low at 3.2 bicarb is 33 renal profile is normal Objective - Vital Signs Vital signs: Vital Signs Temp 98.7 F 04/19/23 12:00 Pulse 72 04/19/23 12:02 Resp 13 04/19/23 12:00 BP 105/77 04/19/23 12:00 Pulse Ox 95 04/19/23 12:00 FiO2 35 04/17/23 12:00 Intake & Output 04/18/23 04/19/23 04/19/23 18:59 06:59 18:59 Intake Total 4164.493 9037 160 Output Total 1555 1660 1030 Balance 147.208 -601 -870 Weight 111.3 kg Intake: IV 516 359 40 0.9 KVO 180 250 40 CVP 36 9 Piperacillin-Tazobactam 3 200 100 .375 gm In Sodium Chloride 0.9% 100 ml @ 25 mls/hr IVPB Q8HR GUY Rx# :[id number] Potassium Chloride 10 meq 100 In Water For Injection 1 100ml.bag @ 100 mls/hr IVPB Q1H GUY Rx#: [id number] Intake, IV Titration 56.208 Amount Norepinephrine 4 mg In 56.208 Sodium Chloride 0.9% 250 ml @ 0.03 MCG/KG/MIN 11. 147 mls/hr IV .[id number] GUY Rx#:[id number] Oral 1130 700 120 Output: Urine 1555 1660 1030 Other: Voiding Method Indwelling Catheter Indwelling Catheter Indwelling Catheter # Bowel Movements 1 ABP, PAP, CO, CI - Last Documented Arterial Blood Pressure 189/181 - Exam Physical Exam: Revealed an 82-year-old white male on room air, not in any distress. Head: Atraumatic normocephalic, HEENT:[Neck is supple.] [No neck masses.] [No thyromegaly.] [No JVD.] Chest: Crackles at the bases no rhonchi and no wheezes Cardiac Exam: [Normal S1 and S2, no S3 gallop, 2/6 systolic murmur thought the precordium. Abdomen: [Soft, nontender, no megaly, no rebound, no guarding, normal bowel sounds.] Extremities: [No clubbing, no edema, no cyanosis.] Neurological Exam: Alert and oriented 3, no gross focal neurologic deficit Psychiatric: Normal mood, affect and normal mental status examination Skin: No rashes. Surgical wound on left knee seems to be intact. - Labs CBC & Chem 7: 04/19/23 04:25 04/19/23 04:25 Labs: Abnormal Lab Results - Last 24 Hours (Table) 04/18/23 04/18/23 04/19/23 Range/Units 16:27 21:25 04:25 RBC 3.98 L (4.30-5.90) m/uL Hgb 8.0 L (13.0-17.5) gm/dL Hct 28.0 L (39.0-53.0) % MCV 70.4 L (80.0-100.0) fL MCH 20.1 L (25.0-35.0) pg MCHC 28.5 L (31.0-37.0) g/dL RDW 20.2 H (11.5-15.5) % PT (9.0-12.0) sec INR (<1.2) Sodium (137-145) mmol/L Potassium (3.5-5.1) mmol/L Chloride (98-107) mmol/L Carbon Dioxide (22-30) mmol/L BUN (9-20) mg/dL Glucose (74-99) mg/dL POC Glucose (mg/dL) 273 H 267 H (70-110) mg/dL 04/19/23 04/19/23 04/19/23 Range/Units 04:25 04:25 06:29 RBC (4.30-5.90) m/uL Hgb (13.0-17.5) gm/dL Hct (39.0-53.0) % MCV (80.0-100.0) fL MCH (25.0-35.0) pg MCHC (31.0-37.0) g/dL RDW (11.5-15.5) % PT 17.7 H (9.0-12.0) sec INR 1.8 H (<1.2) Sodium 133 L (137-145) mmol/L Potassium 3.2 L (3.5-5.1) mmol/L Chloride 93 L (98-107) mmol/L Carbon Dioxide 33 H (22-30) mmol/L BUN 24 H (9-20) mg/dL Glucose 193 H (74-99) mg/dL POC Glucose (mg/dL) 224 H (70-110) mg/dL 04/19/23 04/19/23 Range/Units 11:42 11:59 RBC (4.30-5.90) m/uL Hgb (13.0-17.5) gm/dL Hct (39.0-53.0) % MCV (80.0-100.0) fL MCH (25.0-35.0) pg MCHC (31.0-37.0) g/dL RDW (11.5-15.5) % PT (9.0-12.0) sec INR (<1.2) Sodium (137-145) mmol/L Potassium (3.5-5.1) mmol/L Chloride (98-107) mmol/L Carbon Dioxide (22-30) mmol/L BUN (9-20) mg/dL Glucose (74-99) mg/dL POC Glucose (mg/dL) 271 H 257 H (70-110) mg/dL Microbiology - Last 24 Hours (Table) 04/15/23 06:30 Blood Culture - Preliminary Blood 04/15/23 06:15 Blood Culture - Preliminary Blood Assessment and Plan Assessment: Impression: Cardiac arrest Acute hypoxic respiratory failure secondary to above, requiring intubation and mechanical ventilation, extubated on 04/17/2023. Acute hypotension requiring norepinephrine most likely related to his LV dysfunction/cardiogenic shock. Presently off norepinephrine. Acute systolic congestive heart failure, ejection fraction of 35-40% Chronic atrial fibrillation, on anticoagulation therapy. Recent left total knee arthroplasty Type 2 diabetes without complications Degenerative joint disease Long-term anticoagulation, for chronic atrial fibrillation Possible anoxic brain injury, however it's too early to tell. Recommendation: Incentive spirometry Continue diuretics Transfer patient out of the ICU to a monitor bed on selective in the next 24 hours Consider discharge planning in the next 24 hours possibly to ECF/rehab facility Continue Zosyn for presumptive aspiration. Continue sliding scale insulin coverage Possible discharge planning soon Will continue to follow Time with Patient: Less than 30
[2023-04-19 12:46] LABS: African American GFR (CKD) 90 (>60 ml/min/1.73 sqM); Anion Gap 8 mmol/L; Blood Urea Nitrogen 25 mg/dL (9-20); Calcium 8.7 mg/dL (8.4-10.2); Carbon Dioxide 32 mmol/L (22-30); Chloride 92 mmol/L (98-107); Glucose 240 mg/dL (74-99); Non-African American GFR(CKD) 78 (>60 ml/min/1.73 sqM); Potassium 3.4 mmol/L (3.5-5.1); Sodium 132 mmol/L (137-145)
[2023-04-19] MEDS ORDERED: Potassium Replacement Protocol 1 EACH MISC MISCELLANE PRN (14:10)
--- NOTE | 2023-04-19 14:41 | P.PN ---
Subjective Progress Note Date: 04/18/23 This is an 82-year-old gentleman, recent left knee arthroplasty, cardiac arrested, PEA,downtime 3 minutes, intubated and admitted into the ICU. Remains vent dependent with FiO2 40%/+5 of PEEP. Chest x-ray reporting cardiomegaly, pulmonary vascular congestion and small bilateral pleural effusions/CHF. kirill ntained on Levophed and diprovan drips.Diuresing well on Lasix IVP, with 24-hour I&O reflecting a negative fluid balance. BUN 28, creatinine 0.93. Echo pending telemetry A. fib. INR 1.6. Continues on Zosyn and Zithromax. Yesterday off of sedation ,patient became agitated and did not follow commands, neurology evaluation pending. 04/17/2023 remains vent dependent, FiO2 decreased to 35%/+5 of PEEP. Chest x- ray reporting possible background mild pulmonary vascular congestion, patchy bibasilar opacity's persist worsening now on the right. Maintained on Zosyn for suspected aspiration. Maintained on Continues on levothyroid and diprovan drips. Diuresing well on Lasix IV push with 24-hour I&O reflecting a negative fluid balance. Brain CT reported no acute intracranial process, nonspecific white matter changes likely secondary to chronic small vessel ischemic disease. Scheduled for repeat weaning trial today 04/18/23 extubated yesterday, currently maintaining O2 sats in the 90s on room air. Chest x-ray reported cardiomegaly, vascular congestion with small bilateral pleural effusions, mild fluid overload. Diuresing well on Lasix IV push, Zaroxolyn with 24-hour I&O reflecting a negative fluid balance. Telemetry atrial fibrillation, ventricular rate controlled. Remains on small dose of Levophed. Denies chest pain, palpitation, shortness of breath. Denies cough. Denies abdominal pain. Afebrile, normal WBC, hemoglobin 8.8, platelets 259. Anticoagulated on Coumadin, INR 1.6, electrolytes and renal function stable. Echo reporting EF around 40%, moderate mitral regurgitation. Objective - Vital Signs Vital signs: Vital Signs Temp 98.4 F 04/18/23 12:00 Pulse 84 04/18/23 13:15 Resp 12 04/18/23 13:15 BP 104/68 04/18/23 13:15 Pulse Ox 96 04/18/23 13:15 FiO2 35 04/17/23 12:00 Intake & Output 04/17/23 04/18/23 04/18/23 18:59 06:59 18:59 Intake Total 812.752 684.854 0603.208 Output Total 2090 915 1180 Balance -1277.248 -60.564 -152.792 Weight 119.8 kg 111.3 kg Intake: IV 386 376 331 0.9 KVO 220 240 110 Art Line 30 CVP 36 36 21 Piperacillin-Tazobactam 3 100 100 .375 gm In Sodium Chloride 0.9% 100 ml @ 25 mls/hr IVPB Q8HR GUY Rx# :[id number] Potassium Chloride 10 meq 100 100 In Water For Injection 1 100ml.bag @ 100 mls/hr IVPB Q1H GUY Rx#: [id number] Intake, IV Titration 131.752 128.436 56.208 Amount Dexmedetomidine/0.9% NaCl 36.14 (Pmx) 400 mcg In Empty Bag 1 bag @ 0.2 MCG/KG/HR 5.99 mls/hr IV .[id number] GUY Rx#:[id number] Norepinephrine 4 mg In 128.436 56.208 Sodium Chloride 0.9% 250 ml @ 0.03 MCG/KG/MIN 11. 147 mls/hr IV .[id number] GUY Rx#:[id number] propofoL 1,000 mg In 95.612 Empty Bag 1 bag @ 15 MCG/ KG/MIN 8.777 mls/hr IV . [id number] GUY Rx#:[id number] Oral 350 640 Tube Feeding 175 Other 120 Output: Urine 0 915 1180 Other: Voiding Method Indwelling Catheter Indwelling Catheter Indwelling Catheter ABP, PAP, CO, CI - Last Documented Arterial Blood Pressure 189/181 - Exam PHYSICAL EXAM: VITAL SIGNS: As above GENERAL: Sitting up in bed, extubated, alert and oriented 3 HEENT: Normocephalic, Atraumatic, Conjunctivae normal. eyes normal. NECK: Supple, No JVD. CARDIOVASCULAR: S1, S2 regular. Systolic murmur. RESPIRATION: Breath sounds diminished in the bases. No rhonchi or crackles. ABDOMEN: Soft, nontender . No guarding. no masses palpable.positive Bowel sounds. :Scrotal edema. LEGS: Left knee francesco, superficial necrotic area lateral to the knee francesco, pos. edema. NERVOUS SYSTEM: Cranial nerves II through XII grossly intact, strength and sensa tion grossly intact. Skin: Warm and dry, no rash - Labs CBC & Chem 7: 04/19/23 04:25 04/19/23 12:02 Labs: Abnormal Lab Results - Last 24 Hours (Table) 04/17/23 04/17/23 04/17/23 Range/Units 11:15 18:08 23:37 RBC (4.30-5.90) m/uL Hgb (13.0-17.5) gm/dL Hct (39.0-53.0) % MCV (80.0-100.0) fL MCH (25.0-35.0) pg MCHC (31.0-37.0) g/dL RDW (11.5-15.5) % PT (9.0-12.0) sec INR (<1.2) ABG pH 7.55 H (7.35-7.45) ABG pO2 138 H (83-108) mmHg ABG HCO3 32 H (21-25) mmol/L ABG Total CO2 33 H (19-24) mmol/L ABG O2 Saturation 100.0 H (94-97) % Sodium (137-145) mmol/L BUN (9-20) mg/dL Glucose (74-99) mg/dL POC Glucose (mg/dL) 186 H 202 H (70-110) mg/dL Calcium (8.4-10.2) mg/dL 04/18/23 04/18/23 04/18/23 Range/Units 04:50 04:50 04:50 RBC 4.22 L (4.30-5.90) m/uL Hgb 8.8 L (13.0-17.5) gm/dL Hct 29.7 L (39.0-53.0) % MCV 70.5 L (80.0-100.0) fL MCH 20.8 L (25.0-35.0) pg MCHC 29.5 L (31.0-37.0) g/dL RDW 20.4 H (11.5-15.5) % PT 16.3 H (9.0-12.0) sec INR 1.6 H (<1.2) ABG pH (7.35-7.45) ABG pO2 (83-108) mmHg ABG HCO3 (21-25) mmol/L ABG Total CO2 (19-24) mmol/L ABG O2 Saturation (94-97) % Sodium 136 L (137-145) mmol/L BUN 24 H (9-20) mg/dL Glucose 161 H (74-99) mg/dL POC Glucose (mg/dL) (70-110) mg/dL Calcium 8.1 L (8.4-10.2) mg/dL 04/18/23 04/18/23 Range/Units 05:49 11:44 RBC (4.30-5.90) m/uL Hgb (13.0-17.5) gm/dL Hct (39.0-53.0) % MCV (80.0-100.0) fL MCH (25.0-35.0) pg MCHC (31.0-37.0) g/dL RDW (11.5-15.5) % PT (9.0-12.0) sec INR (<1.2) ABG pH (7.35-7.45) ABG pO2 (83-108) mmHg ABG HCO3 (21-25) mmol/L ABG Total CO2 (19-24) mmol/L ABG O2 Saturation (94-97) % Sodium (137-145) mmol/L BUN (9-20) mg/dL Glucose (74-99) mg/dL POC Glucose (mg/dL) 192 H 194 H (70-110) mg/dL Calcium (8.4-10.2) mg/dL Microbiology - Last 24 Hours (Table) 04/15/23 06:30 Blood Culture - Preliminary Blood 04/15/23 06:15 Blood Culture - Preliminary Blood Assessment and Plan Assessment: Cardiac arrest, PEA, downtime three-minutes Acute hypoxic respiratory failure secondary to the above, status post mechanical ventilator-dependent Cardiogenic shock, pressor dependent, acute CHF exacerbation, systolic dysfunction Moderate bilateral pleural effusions right greater than left Presumptive aspiration pneumonia Possible anoxic brain injury, workup in progress Chronic atrial fibrillation on anticoagulation Recent total left knee arthroplasty at [facility] Diabetes mellitus type 2 Obesity, BMI 35.8 Plan: Continue on current medication regime ,monitoring and symptomatic treatment. Maintain on empiric antibiotic, Zosyn for suspected aspiration. Swallow eval pending.Aggressive pulmonary toileting. PT/OT. The impression and plan of care has been dictated as directed. : I performed a history and examination of this patient, discussed the same with the dictator. I agree with the dictator's note ,documented as a scribe. Any additional findings or plans will be noted.
--- NOTE | 2023-04-19 14:49 | P.PN ---
Subjective Progress Note Date: 04/19/23 This is an 82-year-old gentleman, recent left knee arthroplasty, cardiac arrested, PEA,downtime 3 minutes, intubated and admitted into the ICU. Remains vent dependent with FiO2 40%/+5 of PEEP. Chest x-ray reporting cardiomegaly, pulmonary vascular congestion and small bilateral pleural effusions/CHF. kirill ntained on Levophed and diprovan drips.Diuresing well on Lasix IVP, with 24-hour I&O reflecting a negative fluid balance. BUN 28, creatinine 0.93. Echo pending telemetry A. fib. INR 1.6. Continues on Zosyn and Zithromax. Yesterday off of sedation ,patient became agitated and did not follow commands, neurology evaluation pending. 04/17/2023 remains vent dependent, FiO2 decreased to 35%/+5 of PEEP. Chest x- ray reporting possible background mild pulmonary vascular congestion, patchy bibasilar opacity's persist worsening now on the right. Maintained on Zosyn for suspected aspiration. Maintained on Continues on levothyroid and diprovan drips. Diuresing well on Lasix IV push with 24-hour I&O reflecting a negative fluid balance. Brain CT reported no acute intracranial process, nonspecific white matter changes likely secondary to chronic small vessel ischemic disease. Scheduled for repeat weaning trial today 04/18/23 extubated yesterday, currently maintaining O2 sats in the 90s on room air. Chest x-ray reported cardiomegaly, vascular congestion with small bilateral pleural effusions, mild fluid overload. Diuresing well on Lasix IV push, Zaroxolyn with 24-hour I&O reflecting a negative fluid balance. Telemetry atrial fibrillation, ventricular rate controlled. Remains on small dose of Levophed. Denies chest pain, palpitation, shortness of breath. Denies cough. Denies abdominal pain. Afebrile, normal WBC, hemoglobin 8.8, platelets 259. Anticoagulated on Coumadin, INR 1.6, electrolytes and renal function stable. Echo reporting EF around 40%, moderate mitral regurgitation. 04/19/23 sitting up in chair, maintaining O2 sats in the high 90s on room air. Telemetry controlled atrial fibrillation. Continues diuresing well with 24-hour I&O reflecting a negative fluid balance. Anticoagulated on Coumadin, INR 1.8. Bicarbonate 33. Receiving potassium supplementation for a K of 3.2. Renal function stable. [place] from left knee removed yesterday. Objective - Vital Signs Vital signs: Vital Signs Temp 98.7 F 04/19/23 12:00 Pulse 90 04/19/23 14:00 Resp 15 04/19/23 14:00 BP 119/75 04/19/23 14:00 Pulse Ox 95 04/19/23 14:00 FiO2 35 04/17/23 12:00 Intake & Output 04/18/23 04/19/23 04/19/23 18:59 06:59 18:59 Intake Total 1304.505 0211 580 Output Total 1555 1660 1830 Balance 147.208 -601 -1250 Weight 111.3 kg Intake: IV 516 359 100 0.9 KVO 180 250 100 CVP 36 9 Piperacillin-Tazobactam 3 200 100 .375 gm In Sodium Chloride 0.9% 100 ml @ 25 mls/hr IVPB Q8HR GUY Rx# :[id number] Potassium Chloride 10 meq 100 In Water For Injection 1 100ml.bag @ 100 mls/hr IVPB Q1H GUY Rx#: [id number] Intake, IV Titration 56.208 Amount Norepinephrine 4 mg In 56.208 Sodium Chloride 0.9% 250 ml @ 0.03 MCG/KG/MIN 11. 147 mls/hr IV .[id number] GUY Rx#:[id number] Oral 1130 700 480 Output: Urine 1555 1660 1830 Other: Voiding Method Indwelling Catheter Indwelling Catheter Indwelling Catheter # Bowel Movements 1 ABP, PAP, CO, CI - Last Documented Arterial Blood Pressure 189/181 - Exam PHYSICAL EXAM: VITAL SIGNS: As above GENERAL: Sitting up in chair,alert and oriented 3, no acute distress HEENT: Normocephalic, Atraumatic, Conjunctivae normal. eyes normal. NECK: Supple, No JVD. CARDIOVASCULAR: S1, S2 regular. Systolic murmur. RESPIRATION: Breath sounds diminished in the bases. No rhonchi or crackles. ABDOMEN: Soft, nontender . No guarding. no masses palpable.positive Bowel sounds. :Scrotal edema. LEGS: Left knee francesco, lessening superficial necrotic area lateral to the knee incision, less edema. NERVOUS SYSTEM: Cranial nerves II through XII grossly intact, strength and sensation grossly intact. Skin: Warm and dry, no rash - Labs CBC & Chem 7: 04/19/23 04:25 04/19/23 12:02 Labs: Abnormal Lab Results - Last 24 Hours (Table) 04/18/23 04/18/23 04/19/23 Range/Units 16:27 21:25 04:25 RBC 3.98 L (4.30-5.90) m/uL Hgb 8.0 L (13.0-17.5) gm/dL Hct 28.0 L (39.0-53.0) % MCV 70.4 L (80.0-100.0) fL MCH 20.1 L (25.0-35.0) pg MCHC 28.5 L (31.0-37.0) g/dL RDW 20.2 H (11.5-15.5) % PT (9.0-12.0) sec INR (<1.2) Sodium (137-145) mmol/L Potassium (3.5-5.1) mmol/L Chloride (98-107) mmol/L Carbon Dioxide (22-30) mmol/L BUN (9-20) mg/dL Glucose (74-99) mg/dL POC Glucose (mg/dL) 273 H 267 H (70-110) mg/dL 04/19/23 04/19/23 04/19/23 Range/Units 04:25 04:25 06:29 RBC (4.30-5.90) m/uL Hgb (13.0-17.5) gm/dL Hct (39.0-53.0) % MCV (80.0-100.0) fL MCH (25.0-35.0) pg MCHC (31.0-37.0) g/dL RDW (11.5-15.5) % PT 17.7 H (9.0-12.0) sec INR 1.8 H (<1.2) Sodium 133 L (137-145) mmol/L Potassium 3.2 L (3.5-5.1) mmol/L Chloride 93 L (98-107) mmol/L Carbon Dioxide 33 H (22-30) mmol/L BUN 24 H (9-20) mg/dL Glucose 193 H (74-99) mg/dL POC Glucose (mg/dL) 224 H (70-110) mg/dL 04/19/23 04/19/23 04/19/23 Range/Units 11:42 11:59 12:02 RBC (4.30-5.90) m/uL Hgb (13.0-17.5) gm/dL Hct (39.0-53.0) % MCV (80.0-100.0) fL MCH (25.0-35.0) pg MCHC (31.0-37.0) g/dL RDW (11.5-15.5) % PT (9.0-12.0) sec INR (<1.2) Sodium 132 L (137-145) mmol/L Potassium 3.4 L (3.5-5.1) mmol/L Chloride 92 L (98-107) mmol/L Carbon Dioxide 32 H (22-30) mmol/L BUN 25 H (9-20) mg/dL Glucose 240 H (74-99) mg/dL POC Glucose (mg/dL) 271 H 257 H (70-110) mg/dL Microbiology - Last 24 Hours (Table) 04/15/23 06:30 Blood Culture - Preliminary Blood 04/15/23 06:15 Blood Culture - Preliminary Blood Assessment and Plan Assessment: Cardiac arrest, PEA, downtime three-minutes Acute hypoxic respiratory failure secondary to the above, status post mechanical ventilator-dependent Cardiogenic shock, pressor dependent, acute CHF exacerbation, systolic dysfunction Moderate bilateral pleural effusions right greater than left Presumptive aspiration pneumonia Possible anoxic brain injury, workup in progress Chronic atrial fibrillation on anticoagulation Recent total left knee arthroplasty at [facility] Diabetes mellitus type 2 Obesity, BMI 35.8 Plan: Continue on current medication regime ,monitoring and symptomatic treatment.Aggressive pulmonary toileting, nebulized bronchodilators, antibiotics. PT/OT. Potential discharge within the next 24-48 hours to subacute rehab., pending cardiac clearance. The impression and plan of care has been dictated as directed. : I performed a history and examination of this patient, discussed the same with the dictator. I agree with the dictator's note ,documented as a scribe. Any additional findings or plans will be noted.
[2023-04-19] MEDS ORDERED: FUROSEMIDE 40 MG TAB PO SCH (16:00)
[2023-04-19 16:56] LABS: Glucose,Whole Blood 348 mg/dL (70-110)
[2023-04-19] MEDS ORDERED: INSULIN DETEMIR (LEVEMIR) 100 UNIT/ML SYR SQ STA (17:13)
[2023-04-19] MEDS ORDERED: INSULIN ASPART (NovoLOG) 100 UNIT/ML VIAL SQ ONE (17:14)
[2023-04-19] MEDS ORDERED: WARFARIN 3 MG TAB PO ONE (18:00)
[2023-04-19 20:27] LABS: Glucose,Whole Blood 269 mg/dL (70-110)
[2023-04-19] MEDS ORDERED: FUROSEMIDE 10 MG/ML 4 ML VIAL IV SCH (21:00)
[2023-04-20] MEDS: IPRATROPIUM-ALBUTEROL 3 ML NEB INHALATION SCH ×6 (00:34→20:28)
[2023-04-20 06:19] LABS: Glucose,Whole Blood 192 mg/dL (70-110)
[2023-04-20] MEDS: INSULIN DETEMIR (LEVEMIR) 100 UNIT/ML SYR SQ SCH (06:20)
[2023-04-20] MEDS: INSULIN ASPART (NovoLOG) 100 UNIT/ML VIAL SQ SCH ×4 (06:21→20:34)
[2023-04-20] MEDS: SODIUM CHLORIDE 0.9% 1,000 ML IV SCH (08:49)
[2023-04-20] MEDS: FUROSEMIDE 40 MG TAB PO SCH ×2 (08:53→16:30)
[2023-04-20] MEDS: METOPROLOL TARTRATE 25 MG TAB PO SCH ×2 (08:53→20:34)
[2023-04-20] MEDS: PANTOPRAZOLE 40 MG/10 ML VIAL IVP SCH (08:53)
[2023-04-20] MEDS: PIPERACILLIN-TAZOBACTAM 3.375 GM in SODIUM CHLORIDE 0.9% 100 ML IVPB SCH (08:54)
--- NOTE | 2023-04-20 09:18 | P.PN ---
Subjective Progress Note Date: 04/20/23 History of Present Illness: The patient is an 82-year-old male with known history of hypertension, diabetes, chronic persistent atrial fibrillation who has underwent recent left total knee arthroplasty and presented with symptoms of progressive dyspnea. In the emergency room he became more dyspneic, hypotensive, had what appears to be according to the staff atrial fibrillation with wide complex, was intubated and received a bolus of amiodarone. He is seen in the ICU. He is in atrial fibrillation was controlled ventricle response. He has significant edema on presentation. Chest x-ray showed probable CHF and his CT angiogram showed no pulmonary embolism with right-sided effusion with possible atelectasis. No other history is available. Medications: Metformin, Coumadin, Glucotrol, spironolactone, metoprolol, lisinopril HCTZ, insulin 04/16 Patient seen and examined. Patient remains on ventilator with FiO2 40% and remains unresponsive on ventilator. Has been receiving IV Lasix with good urine output. Creatinine has been stable at 1.0. Still does have 2+ lower extremity edema. Echocardiogram performed today however pending results. Remains in A. fib with controlled heart rates. On low-dose norepinephrine however receiving beta brody. 04/17 Patient seen and examined. FiO2 decreased to 35%. Patient was following some commands however not able to be extubated yesterday. Has still had good urine output with the Lasix 40 mg IV every 12 hours. Echocardiogram shows EF 35-40%. Remains in A. fib with controlled heart rates. Has come down somewhat on the norepinephrine. 04/18 Patient seen and examined. Patient extubated yesterday. He remains in A. fib with predominantly controlled ventricular rates. He did take medications yesterday however some issues swelling moderate this morning. Has still been on a low-dose of norepinephrine however hopefully discontinue today. Still has 2+ lower extremity edema. -1300 mL yesterday. INR 1.6 today. Has been receiving Coumadin. 04/19 Patient seen and examined. Patient remains in A. fib with relatively controlled ventricular rates. He has been receiving Lasix with Zaroxolyn and good urine output, unclear if ins and outs accurately with -400 mL over the last 24 hours. He is somewhat lethargic. Still has 2+ lower extremity edema. He was weaned from norepinephrine yesterday. Blood pressure is borderline in the 110s and 120s range. Denies any chest pain or pressure. 04/20 Patient is seen today in follow-up. He states he is going to [facility] today. Heart rate is in the 80s and 90s, blood pressure 99/67. He is noted have lower extremity edema improvement. He is currently on Lasix IV and will be transitioned to oral today. Physical Examination: Vitals reviewed Head: Normocephalic. Eyes: Sclerae nonicteric. Neck: Good carotid upstroke, no bruit, no jugular venous distention. Lungs: Decreased breath sounds at the bases Heart: Irregular rate and rhythm, S1-S2, no S3, no rub. Systolic ejection murmur. Abdomen: Soft, positive bowel sounds no organomegaly. Extremities: +1 edema, intact distal pulses. [place] left knee Impression: 1. Respiratory failure likely main component of heart failure 2. Chronic persistent atrial fibrillation, anticoagulated 3. Status post recent knee surgery 4. History of hypertension 5. History of diabetes 6. Mild troponin elevation, type II myocardial infarction, no evidence of acute ischemic event 7. Cardiac arrest with some wide complex rhythm, not requiring any cardioversion and brief CPR, unclear pulmonary vs respiratory arrest 8. Acute on chronic systolic heart failure 9. Cardiomyopathy EF 35-40%, unclear ischemic versus nonischemic Plan: Continue current cardiac medications Transition IV Lasix to 40 mg twice daily with plan to discharge on this dose. Continue Coumadin with goal INR 2-3 with INR 1.8 today. Nurse practitioner note has been reviewed, I agree with the documented findings and plan of care. Patient was seen and examined. Objective - Vital Signs Vital signs: Vital Signs Temp 97.7 F 04/20/23 03:13 Pulse 87 04/20/23 05:48 Resp 16 04/20/23 03:13 BP 99/67 04/20/23 03:13 Pulse Ox 90 L 04/20/23 03:13 FiO2 35 04/17/23 12:00 Intake & Output 04/19/23 04/20/23 04/20/23 18:59 06:59 18:59 Intake Total 660 240 Output Total 2205 450 2500 Balance -3682 -210 -2500 Intake: IV 180 40 0.9 KVO 180 40 Oral 480 200 Output: Urine 2205 450 2500 Other: Voiding Method Indwelling Catheter Indwelling Catheter # Bowel Movements 1 ABP, PAP, CO, CI - Last Documented Arterial Blood Pressure 189/181 - Labs CBC & Chem 7: 04/19/23 04:25 04/19/23 12:02 Labs: Abnormal Lab Results - Last 24 Hours (Table) 04/19/23 04/19/23 04/19/23 Range/Units 11:42 11:59 12:02 Sodium 132 L (137-145) mmol/L Potassium 3.4 L (3.5-5.1) mmol/L Chloride 92 L (98-107) mmol/L Carbon Dioxide 32 H (22-30) mmol/L BUN 25 H (9-20) mg/dL Glucose 240 H (74-99) mg/dL POC Glucose (mg/dL) 271 H 257 H (70-110) mg/dL 04/19/23 04/19/23 04/20/23 Range/Units 16:54 20:26 06:18 Sodium (137-145) mmol/L Potassium (3.5-5.1) mmol/L Chloride (98-107) mmol/L Carbon Dioxide (22-30) mmol/L BUN (9-20) mg/dL Glucose (74-99) mg/dL POC Glucose (mg/dL) 348 H 269 H 192 H (70-110) mg/dL Microbiology - Last 24 Hours (Table) 04/15/23 10:04 Legionella Culture - Preliminary Sputum
[2023-04-20 09:22] LABS: INR 1.8 (<1.2); Prothrombin Time 17.8 sec (9.0-12.0)
[2023-04-20] MEDS: metOLazone 5 MG TAB PO SCH (09:43)
[2023-04-20 12:12] LABS: Glucose,Whole Blood 264 mg/dL (70-110)
--- NOTE | 2023-04-20 13:33 | P.PN ---
Subjective Progress Note Date: 04/20/23 This is an 82-year-old gentleman, recent left knee arthroplasty, cardiac arrested, PEA,downtime 3 minutes, intubated and admitted into the ICU. Remains vent dependent with FiO2 40%/+5 of PEEP. Chest x-ray reporting cardiomegaly, pulmonary vascular congestion and small bilateral pleural effusions/CHF. kirill ntained on Levophed and diprovan drips.Diuresing well on Lasix IVP, with 24-hour I&O reflecting a negative fluid balance. BUN 28, creatinine 0.93. Echo pending telemetry A. fib. INR 1.6. Continues on Zosyn and Zithromax. Yesterday off of sedation ,patient became agitated and did not follow commands, neurology evaluation pending. 04/17/2023 remains vent dependent, FiO2 decreased to 35%/+5 of PEEP. Chest x- ray reporting possible background mild pulmonary vascular congestion, patchy bibasilar opacity's persist worsening now on the right. Maintained on Zosyn for suspected aspiration. Maintained on Continues on levothyroid and diprovan drips. Diuresing well on Lasix IV push with 24-hour I&O reflecting a negative fluid balance. Brain CT reported no acute intracranial process, nonspecific white matter changes likely secondary to chronic small vessel ischemic disease. Scheduled for repeat weaning trial today 04/18/23 extubated yesterday, currently maintaining O2 sats in the 90s on room air. Chest x-ray reported cardiomegaly, vascular congestion with small bilateral pleural effusions, mild fluid overload. Diuresing well on Lasix IV push, Zaroxolyn with 24-hour I&O reflecting a negative fluid balance. Telemetry atrial fibrillation, ventricular rate controlled. Remains on small dose of Levophed. Denies chest pain, palpitation, shortness of breath. Denies cough. Denies abdominal pain. Afebrile, normal WBC, hemoglobin 8.8, platelets 259. Anticoagulated on Coumadin, INR 1.6, electrolytes and renal function stable. Echo reporting EF around 40%, moderate mitral regurgitation. 04/19/23 sitting up in chair, maintaining O2 sats in the high 90s on room air. Telemetry controlled atrial fibrillation. Continues diuresing well with 24-hour I&O reflecting a negative fluid balance. Anticoagulated on Coumadin, INR 1.8. Bicarbonate 33. Receiving potassium supplementation for a K of 3.2. Renal function stable. [place] from left knee removed yesterday. 04/20/2023 transferred out of ICU. Diuresing well on Lasix IV push with 24-hour I&O reflecting a negative fluid balance. Blood pressures soft, heart rates better controlled this morning. Afebrile, maintaining O2 sats in the 90s on room air. Denies chest pain, palpitations or shortness of breath. Objective - Vital Signs Vital signs: Vital Signs Temp 98.9 F 04/20/23 08:45 Pulse 91 04/20/23 11:58 Resp 18 04/20/23 11:58 BP 122/67 04/20/23 11:58 Pulse Ox 95 04/20/23 11:58 FiO2 21 04/20/23 11:22 Intake & Output 04/19/23 04/20/23 04/20/23 18:59 06:59 18:59 Intake Total 660 240 420 Output Total 2205 450 2500 Balance -1544 Intake: IV 180 40 0.9 KVO 180 40 Oral 480 200 420 Output: Urine 2205 450 2500 Other: Voiding Method Indwelling Catheter Indwelling Catheter Indwelling Catheter # Bowel Movements 1 1 ABP, PAP, CO, CI - Last Documented Arterial Blood Pressure 189/181 - Exam PHYSICAL EXAM: VITAL SIGNS: As above GENERAL: Lying in bed ,alert and oriented 3, no acute distress HEENT: Normocephalic, Atraumatic, Conjunctivae normal. eyes normal. NECK: Supple, No JVD. CARDIOVASCULAR: S1, S2 regular. Systolic murmur. RESPIRATION: Breath sounds diminished in the bases. No rhonchi or crackles. ABDOMEN: Soft, nontender . No guarding. no masses palpable.positive Bowel sounds. :Scrotal edema. LEGS: Left knee francesco, improving superficial necrotic area lateral to the knee incision, decreased edema. NERVOUS SYSTEM: Cranial nerves II through XII grossly intact, strength and sensation grossly intact. Skin: Warm and dry, no rash - Labs CBC & Chem 7: 04/19/23 04:25 04/19/23 12:02 Labs: Abnormal Lab Results - Last 24 Hours (Table) 04/19/23 04/19/23 04/20/23 Range/Units 16:54 20:26 06:18 PT (9.0-12.0) sec INR (<1.2) POC Glucose (mg/dL) 348 H 269 H 192 H (70-110) mg/dL 04/20/23 04/20/23 Range/Units 08:42 12:10 PT 17.8 H (9.0-12.0) sec INR 1.8 H (<1.2) POC Glucose (mg/dL) 264 H (70-110) mg/dL Microbiology - Last 24 Hours (Table) 04/15/23 10:04 Legionella Culture - Preliminary Sputum Assessment and Plan Assessment: Cardiac arrest, PEA, downtime three-minutes Acute hypoxic respiratory failure secondary to the above, status post mechanical ventilator-dependent Cardiogenic shock, pressor dependent, acute CHF exacerbation, systolic dysfunction Moderate bilateral pleural effusions right greater than left Presumptive aspiration pneumonia Possible anoxic brain injury, workup in progress Chronic atrial fibrillation on anticoagulation Recent total left knee arthroplasty at [facility] Diabetes mellitus type 2 Obesity, BMI 35.8 Plan: Continue on current medication regime ,monitoring and symptomatic treatment.Maintain aggressive pulmonary toileting, nebulized bronchodilators, antibiotics. PT/OT. Increase ambulation as tolerated. Discharge planning in progress for subacute rehab, pending pulmonary, cardiology final DC recommendations and clearance. The impression and plan of care has been dictated as directed. : I performed a history and examination of this patient, discussed the same with the dictator. I agree with the dictator's note ,documented as a scribe. Any additional findings or plans will be noted.
--- NOTE | 2023-04-20 15:54 | P.PN ---
Subjective Progress Note Date: 04/20/23 Principal diagnosis: Cardiopulmonary arrest This is a 82-year-old male patient who presented to the Department having shortness of breath. The patient had a recent left total knee replacement in an outside facility. The patient is diabetic and has hypertension and chronic atrial fibrillation. In the emergency, the patient went progressively more short of breath, and it seems to be that the patient went into respiratory and subsequent cardiac arrest. He was offered CPR for a total of 3 minutes. His underlying cardiac rhythm was PEA as the patient has no pulses. He did have a wide-complex apical rhythm with underlying atrial fibrillation. Subsequently, there was return of spontaneous circulation. The patient was intubated in the emergency and he was brought up to the intensive care unit. Prior to his arrival, he was also given a CT angiogram that showed no evidence of any pulmonary embolism. It showed moderate-sized bilateral pleural effusion right more than left and compressive atelectatic changes in lung bases. The patient had an obvious cardiomegaly. Post intubation chest x-ray was consistent with CHF and bilateral pleural effusions. He does have chronic edema lower extremity is bilaterally. The left knee francesco are still in place. There is a area of ecchymosis around the wound with a superficial skin abrasion and the surface of the wound is covered with eschar which is quite dark and nonpurulent. The patient is currently on norepinephrine which is running at 0.13 microvascular kilogram per minute. He was given IV Lasix 60 mg and his urine output is in order of 1 75 mL since his arrival from the emergency department. He has a Grande catheter in place. The white cell count is 16.9 with a hemoglobin of 8.2 and a platelet count of 238. INR is at 2.9. Post intubation blood gas shows a pH of 7.4 with a pCO2 of 37 and pO2 of 400. The patient is currently on assist control mode at the rate of 20 with a tidal volume of 500 and FiO2 was at 100% with a PEEP of 5 and FiO2 was dropped down to 50%. The sodium level is at 127, potassium levels at 4.6, BUN is 27 with a creatinine of 0.88. Troponins are 0.05 and 0.04 respectively and a proBNP level is 2790. LFTs are normal. UA was negative. His current cardiac rhythm is atrial fibrillation at rate of 54. Patient is currently on propofol which is running at 60 mcg/kg/m. Patient was reevaluated today on 04/16/2023, remains in the ICU, intubated and mechanically ventilated. Patient is an assist-control rate of 20 tidal volume 500 FiO2 40% PEEP of 5 ABG showed a pO2 of 176 pCO2 38 pH of 7.49, FiO2 was cut down from 50% down to 40%. Patient is still requiring norepinephrine at 0.07 mcg/kg/m is also on propofol at 50 mcg/kg/m. Lasix at 40 mg IV push every 12 hours, remains on Zosyn and Zithromax. According to nurses, patient was taken off propofol yesterday, and he was extremely agitated would not follow any instructions, today I recommended a neurological evaluation on this patient in the meantime we'll try to hold sedation again and assess mental status off sedat ion. WBC count is 10 hemoglobin is 8.7 INR is 1.6. Basic metabolic profile is normal BUN is 28 creatinine 0.93, patient has good urine output, obviously is perfusing his kidneys quite well. Echocardiogram showed LV dysfunction with ejection fraction of 40% and there is evidence of moderate mitral regurgitation and moderate tricuspid regurgitation CT angiogram on presentation showed no evidence of pulmonary embolism. Chest x-ray is suggestive of mild congestive heart failure patient is known to have history of chronic atrial fibrillation, he is status post recent left knee arthroplasty, and he has history of hypertension. Apparently with the patient had his cardiac arrest wide-complex rhythm not requiring any cardioversion and he had a brief CPR. Chest x-ray this morning showed cardiomegaly and pulmonary vascular congestion with small bilateral effusions consistent with mild CHF Reevaluated today on 04/17/2023 remains in the ICU, intubated and mechanically ventilated. Patient is on assist control rate of 20 tidal volume 500 FiO2 35% PEEP of 5 ABG showed a pO2 of 135 pCO2 35 pH of 7.49. Remains on norepinephrine at 0.04, propofol was just placed on hold this morning, and I plan to give the patient a weaning trial today after propofol, may or may not end up using Precedex. Shortly after propofol was discontinued, I was notified by the nurse of the patient is waking up, seems to be appropriate and following simple instructions. Hence I transition the patient to pressure support of 10 and CPAP CBC today is relatively normal WBC count of 9 hemoglobin is 9.1, basic metabolic profile is normal renal profile is normal and his blood sugar is 243. Chest x- ray showed cardiomegaly, and mild pulmonary vascular congestion and possible pneumonia is not entirely ruled out, could be aspiration pneumonia. CT of the brain showed no acute intracranial process. Reevaluated today on 04/18/2023, patient was extubated yesterday, and has been tolerating the extubation quite well for the last 24 hours. Patient is on room air, he was extubated on 04/17/2023, he is now off norepinephrine, mentally seems to be intact. Patient is appropriate, denies any specific complaints, patient is wanting to go home. Labs today showed W6 out of 7.5 hemoglobin 8.8, INR is 1.6 events I. Normal renal profile is normal chest x-ray showed mild pulmonary vascular congestion, mild fluid overload, otherwise no significant findings. Patient remains in atrial fibrillation, however his rate seems to be fairly well controlled. Patient does have cardiomyopathy and LV dysfunction with ejection fraction of 35-40%. Being followed by cardiology. Remains on diuretics, including Zaroxolyn and Lasix. Back on Coumadin, goal is INR of 2-3 Reevaluated today on 04/19/2023, patient remains in atrial fibrillation remains in the ICU, his ventricular rate is fairly well controlled. Remains on diuretics, he is doing fairly well, does not seem to be in any distress, and his mental status is great. Patient is doing so well to the point that I may clear him for discharge if cleared by other consultants including cardiology. Remains on Coumadin, CBC is relatively normal hemoglobin is 8 however INR is up to 1.8 electrolytes are normal potassium is a bit low at 3.2 bicarb is 33 renal profile is normal Reevaluated today on 04/20/2023, patient is doing fairly well from the pulmonary perspective, no shortness of breath, no cough, no wheezing, patient is being followed by cardiology for his chronic persistent atrial fibrillation, he is still on diuretics, empirically on antibiotics, doing well, is concerned about his leg swelling and the fact that he has been in active, however the plan is to eventually transfer the patient to a fci/ECF. This is being addressed. WBC count is 6.6 hemoglobin is 8. His INR is up to 1.8. Almost therapeutic rest of the labs are unremarkable. Renal functioning is normal..Last chest x-ray from few days ago showed cardiomegaly and small pleural effusions no clear-cut evidence of pneumonia. Objective - Vital Signs Vital signs: Vital Signs Temp 98.9 F 04/20/23 08:45 Pulse 84 04/20/23 15:47 Resp 18 04/20/23 14:20 BP 122/67 04/20/23 11:58 Pulse Ox 95 04/20/23 11:58 FiO2 21 04/20/23 11:22 Intake & Output 04/19/23 04/20/23 04/20/23 18:59 06:59 18:59 Intake Total 660 240 420 Output Total 2205 450 2500 Balance -8480 -587 -1521 Weight 111.3 kg Intake: IV 180 40 0.9 KVO 180 40 Oral 480 200 420 Output: Urine 2205 450 2500 Other: Voiding Method Indwelling Catheter Indwelling Catheter Indwelling Catheter # Bowel Movements 1 1 ABP, PAP, CO, CI - Last Documented Arterial Blood Pressure 189/181 - Exam Physical Exam: Revealed an 82-year-old white male on room air, not in any distress. Head: Atraumatic normocephalic, HEENT:[Neck is supple.] [No neck masses.] [No thyromegaly.] [No JVD.] Chest: Crackles at the bases no rhonchi and no wheezes Cardiac Exam: [Normal S1 and S2, no S3 gallop, 2/6 systolic murmur thought the precordium. Abdomen: [Soft, nontender, no megaly, no rebound, no guarding, normal bowel sounds.] Extremities: [No clubbing, 1+ bipedal edema, no cyanosis.] Neurological Exam: Alert and oriented 3, no gross focal neurologic deficit Psychiatric: Normal mood, affect and normal mental status examination Skin: No rashes. Surgical wound on left knee seems to be intact. - Labs CBC & Chem 7: 04/19/23 04:25 04/19/23 12:02 Labs: Abnormal Lab Results - Last 24 Hours (Table) 04/19/23 04/19/23 04/20/23 Range/Units 16:54 20:26 06:18 PT (9.0-12.0) sec INR (<1.2) POC Glucose (mg/dL) 348 H 269 H 192 H (70-110) mg/dL 04/20/23 04/20/23 Range/Units 08:42 12:10 PT 17.8 H (9.0-12.0) sec INR 1.8 H (<1.2) POC Glucose (mg/dL) 264 H (70-110) mg/dL Microbiology - Last 24 Hours (Table) 04/15/23 10:04 Legionella Culture - Preliminary Sputum Assessment and Plan Assessment: Impression: Cardiac arrest Acute hypoxic respiratory failure secondary to above, requiring intubation and mechanical ventilation, extubated on 04/17/2023. Acute hypotension requiring norepinephrine most likely related to his LV dysfunction/cardiogenic shock. Resolved. Acute systolic congestive heart failure, ejection fraction of 35-40% Chronic atrial fibrillation, on anticoagulation therapy. Recent left total knee arthroplasty Type 2 diabetes without complications Degenerative joint disease Long-term anticoagulation, for chronic atrial fibrillation Possible anoxic brain injury, however it's too early to tell. Recommendation: Incentive spirometry Continue diuretics We'll clear the patient for discharge if cleared by cardiology This continue antibiotics Continue sliding scale insulin coverage Will follow as needed Time with Patient: Less than 30
[2023-04-20 16:07] LABS: Glucose,Whole Blood 344 mg/dL (70-110)
[2023-04-20] MEDS ORDERED: WARFARIN 3 MG TAB PO ONE (18:00)
[2023-04-20 20:26] LABS: Glucose,Whole Blood 232 mg/dL (70-110)
[2023-04-20] MEDS ORDERED: IPRATROPIUM-ALBUTEROL 3 ML NEB INHALATION PRN (20:35)
--- NOTE | 2023-04-21 01:58 | P.PN ---
Subjective Progress Note Date: 04/20/23 Patient was initially seen by Dr. Miguel A Logan. Please refer to his note for details. Patient is a 82-year-old male with cardiac arrest, with short downtime. Patient's mentation is improving. EEG was canceled because mentation was remarkably improved. CT head was negative for any acute process. Patient was seen for a follow-up. Patient is laying comfortably in the bed. Patient denies any headache, denies dizziness. Ammonia <9 Calcium is within normal limits. Magnesium is within normal limits. CT head is reported as no acute intracranial process. I reviewed CT head and agree with report. Objective - Vital Signs Vital signs: Vital Signs Temp 98.9 F 04/20/23 08:45 Pulse 68 04/20/23 16:28 Resp 18 04/20/23 16:28 BP 130/63 04/20/23 16:28 Pulse Ox 95 04/20/23 16:28 FiO2 21 04/20/23 11:22 Intake & Output 04/19/23 04/20/23 04/20/23 18:59 06:59 18:59 Intake Total 660 240 840 Output Total 2205 450 4050 Balance -1545 210 -3210 Weight 111.3 kg Intake: IV 180 40 0.9 KVO 180 40 Oral 480 200 840 Output: Urine 2205 450 4050 Other: Voiding Method Indwelling Catheter Indwelling Catheter Indwelling Catheter # Bowel Movements 1 1 ABP, PAP, CO, CI - Last Documented Arterial Blood Pressure 189/181 - Exam Patient's mental status appears normal. Patient knows his date of 1940, states it is February and the year is 2022. He states that he is in [facility] in [facility]. He knows name of the current president Mr. Malcolm. Patient states that he is 86 years old, but then said was 82, which is correct. On cranial nerve examination pupils are equal, round and reactive to light. Visual bryant are full on confrontation, face is symmetric. Tongue protrudes the midline. On muscle strength testing, patient's deltoid is 4/4-, biceps 5/5, pilates coordinator 5/5, hip flexion 4+/4+, ankle dorsiflexion 5/5. Patient has significant peripheral edema. - Labs CBC & Chem 7: 04/19/23 04:25 04/19/23 12:02 Labs: Abnormal Lab Results - Last 24 Hours (Table) 04/19/23 04/20/23 04/20/23 Range/Units 20:26 06:18 08:42 PT 17.8 H (9.0-12.0) sec INR 1.8 H (<1.2) POC Glucose (mg/dL) 269 H 192 H (70-110) mg/dL 04/20/23 04/20/23 Range/Units 12:10 16:05 PT (9.0-12.0) sec INR (<1.2) POC Glucose (mg/dL) 264 H 344 H (70-110) mg/dL Microbiology - Last 24 Hours (Table) 04/15/23 10:04 Legionella Culture - Preliminary Sputum Assessment and Plan Assessment: Acute cardiopulmonary arrest most likely pulmonary followed by cardiac event and he was down for 3 minutes and was in PEA. Encephalopathy, remarkably improved. Patient is off sedation. Moderate sized bilateral pleural effusion Chronic atrial fibrillation on Coumadin. INR is 2.6 on presentation. Current INR 1.8. Recent left knee arthroplasty Diabetes mellitus Hypertension Osteoarthritis Plan: CT head is negative. EEG is cancelled since mentation has improved. We'll defer the rest of the medical management to the primary and ICU team. Cardiology is on board Patient's mentation has remarkably improved. Examination is relatively nonfocal. Patient condition is very guarded Plan discussed with the patient nurse Neurologically, no other workup indicated. Patient is clear for transfer to [facility]. Neurology will sign off. Please reconsult neurology if any concerns.
[2023-04-21 05:59] LABS: Glucose,Whole Blood 205 mg/dL (70-110)
[2023-04-21] MEDS: INSULIN ASPART (NovoLOG) 100 UNIT/ML VIAL SQ SCH ×4 (06:13→20:53)
[2023-04-21] MEDS: INSULIN DETEMIR (LEVEMIR) 100 UNIT/ML SYR SQ SCH (06:13)
[2023-04-21] MEDS: IPRATROPIUM-ALBUTEROL 3 ML NEB INHALATION SCH ×4 (08:24→20:05)
[2023-04-21] MEDS: PANTOPRAZOLE 40 MG/10 ML VIAL IVP SCH (08:58)
[2023-04-21] MEDS: FUROSEMIDE 40 MG TAB PO SCH ×2 (08:58→16:11)
[2023-04-21] MEDS: METOPROLOL TARTRATE 25 MG TAB PO SCH ×2 (08:58→20:53)
[2023-04-21] MEDS: metOLazone 5 MG TAB PO SCH (08:58)
[2023-04-21] MEDS: SODIUM CHLORIDE 0.9% 1,000 ML IV SCH (09:29)
[2023-04-21 11:32] LABS: Glucose,Whole Blood 325 mg/dL (70-110)
[2023-04-21 11:57] LABS: African American GFR (CKD) >90 (>60 ml/min/1.73 sqM); Anion Gap 8 mmol/L; Blood Urea Nitrogen 27 mg/dL (9-20); Calcium 8.7 mg/dL (8.4-10.2); Carbon Dioxide 37 mmol/L (22-30); Chloride 84 mmol/L (98-107); Glucose 283 mg/dL (74-99); Non-African American GFR(CKD) 80 (>60 ml/min/1.73 sqM); Potassium 3.1 mmol/L (3.5-5.1); Sodium 129 mmol/L (137-145)
[2023-04-21] MEDS ORDERED: Potassium Replacement Protocol 1 EACH MISC MISCELLANE PRN ×2 (12:01→19:12)
[2023-04-21 12:05] LABS: INR 1.7 (<1.2); Prothrombin Time 16.7 sec (9.0-12.0)
[2023-04-21] MEDS: POTASSIUM CHLORIDE ER 20 MEQ TAB.ER PO SCH ×4 (12:12→20:54)
[2023-04-21 12:30] LABS: Anisocytosis Slight; Basophils % (A) 0 %; Eosinophils # (A) 0.1 k/uL (0-0.7); Eosinophils % (A) 2 %; HCT 31.2 % (39.0-53.0); HGB 8.9 gm/dL (13.0-17.5); Hypochromasia Marked; Lymphocytes # (A) 0.7 k/uL (1.0-4.8); Lymphocytes % (A) 14 %; MCH 20.3 pg (25.0-35.0); MCHC 28.5 g/dL (31.0-37.0); MCV 71.2 fL (80.0-100.0); Mean Platelet Volume 8.4; Microcytosis Marked; Monocytes # (A) 0.4 k/uL (0-1.0); Monocytes % (A) 8 %; Neutrophils # (A) 3.8 k/uL (1.3-7.7); Neutrophils % (A) 73 %; Platelet Count 248 k/uL (150-450); RBC 4.38 m/uL (4.30-5.90); RDW 19.7 % (11.5-15.5); WBC 5.2 k/uL (3.8-10.6)
--- NOTE | 2023-04-21 16:21 | P.PN ---
Subjective Progress Note Date: 04/21/23 History of Present Illness: The patient is an 82-year-old male with known history of hypertension, diabetes, chronic persistent atrial fibrillation who has underwent recent left total knee arthroplasty and presented with symptoms of progressive dyspnea. In the emergency room he became more dyspneic, hypotensive, had what appears to be according to the staff atrial fibrillation with wide complex, was intubated and received a bolus of amiodarone. He was transferred to the ICU. He was in atrial fibrillation was controlled ventricle response. He had significant edema on presentation. Chest x-ray showed probable CHF and his CT angiogram showed no pulmonary embolism with right-sided effusion with possible atelectasis. No other history is available. Medications: Metformin, Coumadin, Glucotrol, spironolactone, metoprolol, lisinopril HCTZ, insulin 04/16 Patient seen and examined. Patient remains on ventilator with FiO2 40% and remains unresponsive on ventilator. Has been receiving IV Lasix with good urine output. Creatinine has been stable at 1.0. Still does have 2+ lower extremity edema. Echocardiogram performed today however pending results. Remains in A. fib with controlled heart rates. On low-dose norepinephrine however receiving beta brody. 04/17 Patient seen and examined. FiO2 decreased to 35%. Patient was following some commands however not able to be extubated yesterday. Has still had good urine output with the Lasix 40 mg IV every 12 hours. Echocardiogram shows EF 35-40%. Remains in A. fib with controlled heart rates. Has come down somewhat on the norepinephrine. 04/18 Patient seen and examined. Patient extubated yesterday. He remains in A. fib with predominantly controlled ventricular rates. He did take medications yesterday however some issues swelling moderate this morning. Has still been on a low-dose of norepinephrine however hopefully discontinue today. Still has 2+ lower extremity edema. -1300 mL yesterday. INR 1.6 today. Has been receiving Coumadin. 04/19 Patient seen and examined. Patient remains in A. fib with relatively controlled ventricular rates. He has been receiving Lasix with Zaroxolyn and good urine output, unclear if ins and outs accurately with -400 mL over the last 24 hours. He is somewhat lethargic. Still has 2+ lower extremity edema. He was weaned from norepinephrine yesterday. Blood pressure is borderline in the 110s and 120s range. Denies any chest pain or pressure. 04/20 Patient is seen today in follow-up. He states he is going to [facility] today. Heart rate is in the 80s and 90s, blood pressure 99/67. He is noted have lower extremity edema improvement. He is currently on Lasix IV and will be transit ioned to oral today. 04/21 Patient seen sitting upright in chair. He denies any chest pain or palpitations. Frequent PVCs on tele. Physical Examination: Vitals reviewed Head: Normocephalic. Eyes: Sclerae nonicteric. Neck: no bruit, no jugular venous distention. Lungs: Decreased breath sounds at the bases Heart: Irregular rate and rhythm, S1-S2, no S3, no rub. Systolic ejection murmur. Abdomen: Soft, positive bowel sounds Extremities: +1 edema, intact distal pulses. Karli left knee Impression: 1. Respiratory failure likely main component of heart failure 2. Chronic persistent atrial fibrillation, anticoagulated 3. Status post recent knee surgery 4. History of hypertension 5. History of diabetes 6. Mild troponin elevation, type II myocardial infarction, no evidence of acute ischemic event 7. Cardiac arrest with some wide complex rhythm, not requiring any cardioversion and brief CPR, unclear pulmonary vs respiratory arrest 8. Acute on chronic systolic heart failure 9. Cardiomyopathy EF 35-40%, unclear ischemic versus nonischemic Plan: Continue current cardiac medication. Continue IV Lasix 40 mg twice daily with plan to discharge on this dose. Continue Coumadin with goal INR 2-3. OK to discharge to rehab from cardiology standpoint. Cardiology to sign off please call with questions. Nurse practitioner note has been reviewed, I agree with the documented findings and plan of care. Patient was seen and examined. Objective - Vital Signs Vital signs: Vital Signs Temp 98.3 F 04/21/23 08:56 Pulse 75 04/21/23 11:53 Resp 18 04/21/23 10:09 BP 117/41 04/21/23 08:56 Pulse Ox 94 L 04/21/23 08:56 FiO2 21 04/20/23 11:22 Intake & Output 04/20/23 04/21/23 04/21/23 18:59 06:59 18:59 Intake Total 840 810 Output Total 4050 1925 Balance -3209 -1924 810 Weight 111.3 kg Intake: Oral 840 810 Output: Urine 4050 1925 Other: Voiding Method Indwelling Catheter Indwelling Catheter Indwelling Catheter # Bowel Movements 1 1 ABP, PAP, CO, CI - Last Documented Arterial Blood Pressure 189/181 - Labs CBC & Chem 7: 04/21/23 10:20 04/21/23 10:20 Labs: Abnormal Lab Results - Last 24 Hours (Table) 04/20/23 04/20/23 04/20/23 Range/Units 12:10 16:05 20:25 Sodium (137-145) mmol/L Potassium (3.5-5.1) mmol/L Chloride (98-107) mmol/L Carbon Dioxide (22-30) mmol/L BUN (9-20) mg/dL Glucose (74-99) mg/dL POC Glucose (mg/dL) 264 H 344 H 232 H (70-110) mg/dL 04/21/23 04/21/23 04/21/23 Range/Units 05:57 10:20 11:28 Sodium 129 L (137-145) mmol/L Potassium 3.1 L (3.5-5.1) mmol/L Chloride 84 L (98-107) mmol/L Carbon Dioxide 37 H (22-30) mmol/L BUN 27 H (9-20) mg/dL Glucose 283 H (74-99) mg/dL POC Glucose (mg/dL) 205 H 325 H (70-110) mg/dL
[2023-04-21 16:31] LABS: Glucose,Whole Blood 333 mg/dL (70-110)
[2023-04-21 16:31] LABS: Glucose,Whole Blood 340 mg/dL (70-110)
[2023-04-21] MEDS ORDERED: WARFARIN 3 MG TAB PO ONE (18:00)
[2023-04-21 20:43] LABS: Glucose,Whole Blood 358 mg/dL (70-110)
[2023-04-22 06:18] LABS: Glucose,Whole Blood 192 mg/dL (70-110)
[2023-04-22] MEDS: INSULIN ASPART (NovoLOG) 100 UNIT/ML VIAL SQ SCH ×4 (06:24→21:04)
[2023-04-22] MEDS: INSULIN DETEMIR (LEVEMIR) 100 UNIT/ML SYR SQ SCH (06:24)
[2023-04-22] MEDS: IPRATROPIUM-ALBUTEROL 3 ML NEB INHALATION SCH ×4 (08:26→20:49)
[2023-04-22] MEDS: SODIUM CHLORIDE 0.9% 1,000 ML IV SCH (08:27)
[2023-04-22] MEDS: metOLazone 5 MG TAB PO SCH (08:27)
[2023-04-22] MEDS: METOPROLOL TARTRATE 25 MG TAB PO SCH ×2 (08:28→21:04)
[2023-04-22] MEDS: FUROSEMIDE 40 MG TAB PO SCH ×2 (08:28→15:40)
[2023-04-22] MEDS: PANTOPRAZOLE 40 MG/10 ML VIAL IVP SCH (08:28)
[2023-04-22 11:28] LABS: Glucose,Whole Blood 319 mg/dL (70-110)
[2023-04-22 13:28] LABS: INR 1.9 (<1.2)
[2023-04-22 13:34] LABS: ALT 22 U/L (4-49); AST 23 U/L (17-59); African American GFR (CKD) >90 (>60 ml/min/1.73 sqM); Albumin 3.1 g/dL (3.5-5.0); Alkaline Phosphatase 165 U/L (38-126); Anion Gap 8 mmol/L; Blood Urea Nitrogen 28 mg/dL (9-20); Calcium 9.3 mg/dL (8.4-10.2); Carbon Dioxide 37 mmol/L (22-30); Chloride 82 mmol/L (98-107); Glucose 328 mg/dL (74-99); Non-African American GFR(CKD) 79 (>60 ml/min/1.73 sqM); Potassium 3.1 mmol/L (3.5-5.1); Sodium 127 mmol/L (137-145); Total Bilirubin 1.4 mg/dL (0.2-1.3); Total Protein 6.2 g/dL (6.3-8.2)
--- NOTE | 2023-04-22 13:59 | P.PN ---
Subjective Progress Note Date: 04/21/23 82-year-old gentleman, recent left knee arthroplasty, cardiac arrested, PEA,downtime 3 minutes, intubated and admitted into the ICU. Remains vent dependent with FiO2 40%/+5 of PEEP. Chest x-ray reporting cardiomegaly, pulmonary vascular congestion and small bilateral pleural effusions/CHF. maintained on Levophed and diprovan drips.Diuresing well on Lasix IVP, with 24- hour I&O reflecting a negative fluid balance. BUN 28, creatinine 0.93. Echo pending telemetry A. fib. INR 1.6. Continues on Zosyn and Zithromax. Yesterday off of sedation ,patient became agitated and did not follow commands, neurology evaluation pending. ----04/20/2023 transferred out of ICU. Diuresing well on Lasix IV push with 24- hour I&O reflecting a negative fluid balance. Blood pressures soft, heart rates better controlled this morning. Afebrile, maintaining O2 sats in the 90s on room air. Denies chest pain, palpitations or shortness of breath. Continue current cardiac medication. Continue IV Lasix 40 mg twice daily with plan to discharge on this dose. Continue Coumadin with goal INR 2-3. OK to discharge to rehab from cardiology standpoint. Objective - Vital Signs Vital signs: Vital Signs Temp 98.3 F 04/21/23 08:56 Pulse 75 04/21/23 11:53 Resp 18 04/21/23 10:09 BP 117/41 04/21/23 08:56 Pulse Ox 94 L 04/21/23 08:56 FiO2 21 04/20/23 11:22 Intake & Output 04/20/23 04/21/23 04/21/23 18:59 06:59 18:59 Intake Total 840 920 Output Total 4050 1925 Balance -3209 -1924 920 Weight 111.3 kg Intake: Oral 840 920 Output: Urine 4050 1925 Other: Voiding Method Indwelling Catheter Indwelling Catheter Indwelling Catheter # Bowel Movements 1 1 ABP, PAP, CO, CI - Last Documented Arterial Blood Pressure 189/181 - Exam GENERAL: Lying in bed ,alert and oriented 3, no acute distress HEENT: Normocephalic, Atraumatic, Conjunctivae normal. eyes normal. NECK: Supple, No JVD. CARDIOVASCULAR: S1, S2 regular. Systolic murmur. RESPIRATION: Breath sounds diminished in the bases. No rhonchi or crackles. ABDOMEN: Soft, nontender . No guarding. no masses palpable.positive Bowel sounds. :Scrotal edema. LEGS: Left knee francesco, improving superficial necrotic area lateral to the knee incision, decreased edema. NERVOUS SYSTEM: Cranial nerves II through XII grossly intact, strength and sensation grossly intact. Skin: Warm and dry, no rash - Labs CBC & Chem 7: 04/21/23 10:20 04/22/23 12:54 Labs: Abnormal Lab Results - Last 24 Hours (Table) 04/20/23 04/20/23 04/21/23 Range/Units 16:05 20:25 05:57 Hgb (13.0-17.5) gm/dL Hct (39.0-53.0) % MCV (80.0-100.0) fL MCH (25.0-35.0) pg MCHC (31.0-37.0) g/dL RDW (11.5-15.5) % Lymphocytes # (1.0-4.8) k/uL PT (9.0-12.0) sec INR (<1.2) Sodium (137-145) mmol/L Potassium (3.5-5.1) mmol/L Chloride (98-107) mmol/L Carbon Dioxide (22-30) mmol/L BUN (9-20) mg/dL Glucose (74-99) mg/dL POC Glucose (mg/dL) 344 H 232 H 205 H (70-110) mg/dL 04/21/23 04/21/23 04/21/23 Range/Units 10:20 10:20 10:20 Hgb 8.9 L (13.0-17.5) gm/dL Hct 31.2 L (39.0-53.0) % MCV 71.2 L (80.0-100.0) fL MCH 20.3 L (25.0-35.0) pg MCHC 28.5 L (31.0-37.0) g/dL RDW 19.7 H (11.5-15.5) % Lymphocytes # 0.7 L (1.0-4.8) k/uL PT 16.7 H (9.0-12.0) sec INR 1.7 H (<1.2) Sodium 129 L (137-145) mmol/L Potassium 3.1 L (3.5-5.1) mmol/L Chloride 84 L (98-107) mmol/L Carbon Dioxide 37 H (22-30) mmol/L BUN 27 H (9-20) mg/dL Glucose 283 H (74-99) mg/dL POC Glucose (mg/dL) (70-110) mg/dL 04/21/23 Range/Units 11:28 Hgb (13.0-17.5) gm/dL Hct (39.0-53.0) % MCV (80.0-100.0) fL MCH (25.0-35.0) pg MCHC (31.0-37.0) g/dL RDW (11.5-15.5) % Lymphocytes # (1.0-4.8) k/uL PT (9.0-12.0) sec INR (<1.2) Sodium (137-145) mmol/L Potassium (3.5-5.1) mmol/L Chloride (98-107) mmol/L Carbon Dioxide (22-30) mmol/L BUN (9-20) mg/dL Glucose (74-99) mg/dL POC Glucose (mg/dL) 325 H (70-110) mg/dL Assessment and Plan Assessment: Cardiac arrest, PEA, downtime three-minutes Acute hypoxic respiratory failure secondary to the above, status post mechanical ventilator-dependent Cardiogenic shock, pressor dependent, acute CHF exacerbation, systolic dysfunction Moderate bilateral pleural effusions right greater than left Presumptive aspiration pneumonia Possible anoxic brain injury, workup in progress Chronic atrial fibrillation on anticoagulation Recent total left knee arthroplasty at [facility] Diabetes mellitus type 2 Obesity, BMI 35.8 Plan: Continue on current medication regime ,monitoring and symptomatic treatment.Maintain aggressive pulmonary toileting, nebulized bronchodilators, antibiotics. PT/OT. Increase ambulation as tolerated. Discharge planning in progress for subacute rehab, pending pulmonary, cardiology final DC recommendations and clearance.
[2023-04-22] MEDS ORDERED: POTASSIUM CHLORIDE ER 20 MEQ TAB.ER PO STA (15:27)
[2023-04-22] MEDS ORDERED: POTASSIUM CHLORIDE 10 MEQ in WATER FOR INJECTION 1 100ML.BAG IVPB STA (15:27)
[2023-04-22 16:19] LABS: Glucose,Whole Blood 372 mg/dL (70-110)
[2023-04-22] MEDS ORDERED: WARFARIN 7.5 MG TAB PO ONE (18:00)
[2023-04-22] MEDS: POTASSIUM CHLORIDE 10 MEQ in WATER FOR INJECTION 1 100ML.BAG IVPB SCH ×3 (18:15→22:59)
[2023-04-22 20:07] LABS: Glucose,Whole Blood 304 mg/dL (70-110)
[2023-04-23] MEDS: BENZOCAINE/MENTHOL LOZENG 1 EACH LOZENGE MUCOUS MEM PRN (03:47)
[2023-04-23 06:14] LABS: Glucose,Whole Blood 284 mg/dL (70-110)
[2023-04-23] MEDS: SODIUM CHLORIDE 0.9% 1,000 ML IV SCH (06:21)
[2023-04-23] MEDS: INSULIN ASPART (NovoLOG) 100 UNIT/ML VIAL SQ SCH ×4 (06:31→21:04)
[2023-04-23] MEDS: INSULIN DETEMIR (LEVEMIR) 100 UNIT/ML SYR SQ SCH (06:31)
[2023-04-23 08:50] LABS: INR 2.1 (<1.2)
[2023-04-23] MEDS: IPRATROPIUM-ALBUTEROL 3 ML NEB INHALATION SCH ×4 (08:54→22:38)
[2023-04-23] MEDS: metOLazone 5 MG TAB PO SCH (08:55)
[2023-04-23] MEDS: FUROSEMIDE 40 MG TAB PO SCH ×2 (08:55→16:05)
[2023-04-23] MEDS: METOPROLOL TARTRATE 25 MG TAB PO SCH ×2 (08:55→21:04)
[2023-04-23] MEDS: PANTOPRAZOLE 40 MG/10 ML VIAL IVP SCH (08:55)
[2023-04-23 09:14] LABS: African American GFR (CKD) >90 (>60 ml/min/1.73 sqM); Anion Gap 8 mmol/L; Blood Urea Nitrogen 27 mg/dL (9-20); Calcium 9.2 mg/dL (8.4-10.2); Carbon Dioxide 35 mmol/L (22-30); Chloride 83 mmol/L (98-107); Glucose 298 mg/dL (74-99); Non-African American GFR(CKD) 85 (>60 ml/min/1.73 sqM); Potassium 3.2 mmol/L (3.5-5.1); Sodium 126 mmol/L (137-145)
[2023-04-23] MEDS ORDERED: Potassium Replacement Protocol 1 EACH MISC MISCELLANE PRN ×2 (09:55→11:04)
[2023-04-23] MEDS ORDERED: POTASSIUM CHLORIDE ER 20 MEQ TAB.ER PO SCH (10:00)
[2023-04-23 11:34] LABS: Glucose,Whole Blood 444 mg/dL (70-110)
--- NOTE | 2023-04-23 11:37 | P.DS ---
Providers Date of admission: 04/15/23 06:03 Expected date of discharge: 04/23/23 Attending physician: Gibson Melvin MD Consults: 04/15/23 08:27 Consult Physician Stat Consulting Provider: Sukhdeep Do Consult Reason/Comments: vnt management Do you want consulting provider notified?: Already Contacted 04/16/23 09:56 Consult Physician Routine Consulting Provider: Miguel A Logan Consult Reason/Comments: AMS cardiac arrest Do you want consulting provider notified?: Yes Primary care physician: Beatriz Morrisonbagh [facility] Course: Final Diagnoses: Cardiac arrest, PEA, downtime three-minutes Acute CHF exacerbation, systolic dysfunction Hyponatremia,secondary to the above ,diuresing Acute hypoxic respiratory failure secondary to the above, status post mechanical ventilator-dependent Cardiogenic shock, pressor dependent, resolved Moderate bilateral pleural effusions right greater than left, responded well to diuresing, Last chest x-ray reporting small bilateral pleural effusions. Presumptive aspiration pneumonia, per pulmonary no clear-cut evidence of pneumonia ,antibiotics discontinued on 04/20/2023. Possible anoxic brain injury, neuro workup currently negative with no further workup indicated As per neurology . Chronic atrial fibrillation on anticoagulation Recent total left knee arthroplasty at [facility] Diabetes mellitus type 2 Obesity, BMI 35.8 Hospital course:This is an 82-year-old gentleman, recent left knee arthroplasty, cardiac arrested, PEA,downtime 3 minutes, intubated and admitted into the ICU. Remains vent dependent with FiO2 40%/+5 of PEEP. Chest x-ray reporting cardiomegaly, pulmonary vascular congestion and small bilateral pleural effusions/CHF. maintained on Levophed and diprovan drips.Diuresing well on Lasix IVP, with 24-hour I&O reflecting a negative fluid balance. BUN 28, creatinine 0.93. Echo pending telemetry A. fib. INR 1.6. Continues on Zosyn and Zithromax. Yesterday off of sedation ,patient became agitated and did not follow commands, neurology evaluation pending. 04/17/2023 remains vent dependent, FiO2 decreased to 35%/+5 of PEEP. Chest x- ray reporting possible background mild pulmonary vascular congestion, patchy bibasilar opacity's persist worsening now on the right. Maintained on Zosyn for suspected aspiration. Maintained on Continues on levothyroid and diprovan drips. Diuresing well on Lasix IV push with 24-hour I&O reflecting a negative fluid balance. Brain CT reported no acute intracranial process, nonspecific white matter changes likely secondary to chronic small vessel ischemic disease. Scheduled for repeat weaning trial today 04/18/23 extubated yesterday, currently maintaining O2 sats in the 90s on room air. Chest x-ray reported cardiomegaly, vascular congestion with small bilate ral pleural effusions, mild fluid overload. Diuresing well on Lasix IV push, Zaroxolyn with 24-hour I&O reflecting a negative fluid balance. Telemetry atrial fibrillation, ventricular rate controlled. Remains on small dose of Levophed. Denies chest pain, palpitation, shortness of breath. Denies cough. Denies abdominal pain. Afebrile, normal WBC, hemoglobin 8.8, platelets 259. Anticoagulated on Coumadin, INR 1.6, electrolytes and renal function stable. Echo reporting EF around 40%, moderate mitral regurgitation. 04/19/23 sitting up in chair, maintaining O2 sats in the high 90s on room air. Telemetry controlled atrial fibrillation. Continues diuresing well with 24-hour I&O reflecting a negative fluid balance. Anticoagulated on Coumadin, INR 1.8. Bicarbonate 33. Receiving potassium supplementation for a K of 3.2. Renal function stable. [place] from left knee removed yesterday. 04/20/2023 transferred out of ICU. Diuresing well on Lasix IV push with 24-hour I&O reflecting a negative fluid balance. Blood pressures soft, heart rates better controlled this morning. Afebrile, maintaining O2 sats in the 90s on room air. Denies chest pain, palpitations or shortness of breath. Significant clinical improvement. Sensorium remarkably improved. EEG was canceled secondary to mentation remarkably improved. CT reported negative for any acute process. Renal function continues to improve. Per pulmonary, last chest x-ray reported no clear-cut evidence of pneumonia, antibiotics discontinued. INR currently 2.1. Sodium 126, potassium 3.2/potassium replacements ordered. Magnesium level pending. Legionella culture pending .Cleared by both cardiology and pulmonary for discharge. Afebrile Patient will be discharged to [facility] subacute rehab today in a stable condition with guarded prognosis. Close monitoring of electrolytes OP. The impression and plan of care has been dictated as directed. : I performed a history and examination of this patient, discussed the same with the dictator. I agree with the dictator's note ,documented as a scribe. Any additional findings or plans will be noted. Patient Condition at Discharge: Stable Plan - Discharge Summary Discharge Rx Participant: Yes New Discharge Prescriptions: New Benzocaine/Menthol Lozeng [Cepacol lozenge] 1 each MUCOUS MEM Q1H PRN lozenge PRN Reason: Sore Throat Ipratropium-Albuterol Nebulize [Duoneb 0.5 mg-3 mg/3 ml Soln] 3 ml INHALATION RT-QID each Ipratropium-Albuterol Nebulize [Duoneb 0.5 mg-3 mg/3 ml Soln] 3 ml INHALATION Q4H PRN each PRN Reason: Shortness Of Breath Or Wheezing INSULIN LISPRO (HumaLOG) [humaLOG] 0 unit SQ ACHS #10 ml Insulin Detemir (Levemir) [Levemir] 30 unit SQ DAILY@0700 each Furosemide [Lasix] 40 mg PO BID@0900,1600 tab Metoprolol Tartrate [Lopressor] 25 mg PO BID tab Acetaminophen Tab [Tylenol] 500 mg PO Q6HR PRN tab PRN Reason: Fever And/ Or Pain metOLazone [Zaroxolyn] 5 mg PO DAILY tab Continue Tamsulosin [Flomax] 0.4 mg PO BID Warfarin Sodium [Jantoven] 5 mg PO DAILY Omeprazole 40 mg PO DAILY Discontinued metFORMIN HCL [Glucophage] 1,000 mg PO BID Lisinopril-Hctz 20-12.5 mg [Zestoretic 20-12.5] 1 tab PO BID Metoprolol Tartrate [Lopressor] 25 mg PO DAILY traMADol HCL 50 mg PO Q4H PRN PRN Reason: Pain Insulin Aspart Prot/Insuln Asp [Novolog MIX 70-30 Flexpen] 50 unit SQ BID- W/MEALS Furosemide [Lasix] 20 mg PO DAILY PRN PRN Reason: Edema Discharge Medication List Warfarin Sodium [Jantoven] 5 mg PO DAILY 01/28/22 [History] Omeprazole 40 mg PO DAILY 04/15/23 [History] Tamsulosin [Flomax] 0.4 mg PO BID 04/15/23 [History] Acetaminophen Tab [Tylenol] 500 mg PO Q6HR PRN tab 04/23/23 [Rx] Benzocaine/Menthol Lozeng [Cepacol lozenge] 1 each MUCOUS MEM Q1H PRN lozenge 04/23/23 [Rx] Furosemide [Lasix] 40 mg PO BID@0900,1600 tab 04/23/23 [Rx] INSULIN LISPRO (HumaLOG) [humaLOG] 0 unit SQ ACHS #10 ml 04/23/23 [Rx] Insulin Detemir (Levemir) [Levemir] 30 unit SQ DAILY@0700 each 04/23/23 [Rx] Ipratropium-Albuterol Nebulize [Duoneb 0.5 mg-3 mg/3 ml Soln] 3 ml INHALATION Q4H PRN each 04/23/23 [Rx] Ipratropium-Albuterol Nebulize [Duoneb 0.5 mg-3 mg/3 ml Soln] 3 ml INHALATION RT-QID each 04/23/23 [Rx] Metoprolol Tartrate [Lopressor] 25 mg PO BID tab 04/23/23 [Rx] metOLazone [Zaroxolyn] 5 mg PO DAILY tab 04/23/23 [Rx] Follow up Appointment(s)/Referral(s): Beatriz Melvin DO [Primary Care Provider] - 1 Week (After discharge from subacute rehab) Activity/Diet/Wound Care/Special Instructions: Aster DEGROOT PT/INR on Sunday CBC, BMP in 3 days Discharge Disposition: TRANSFER TO SNF/ECF
[2023-04-23] MEDS ORDERED: INSULIN DETEMIR (LEVEMIR) 100 UNIT/ML SYR SQ ONE (12:00)
[2023-04-23 16:27] LABS: Glucose,Whole Blood 370 mg/dL (70-110)
[2023-04-23] MEDS ORDERED: WARFARIN 3 MG TAB PO ONE (18:00)
[2023-04-23] MEDS ORDERED: Magnesium Replacement Protocol 1 EACH MISC MISCELLANE PRN (18:39)
[2023-04-23 19:52] LABS: Glucose,Whole Blood 338 mg/dL (70-110)
[2023-04-23] MEDS: POTASSIUM PHOSPHATE 10 MMOL in SODIUM CHLORIDE 0.9% 250 ML IV SCH ×2 (21:05→23:55)
[2023-04-24] MEDS: ACETAMINOPHEN TAB 500 MG TAB PO PRN (01:05)
[2023-04-24] MEDS: POTASSIUM PHOSPHATE 10 MMOL in SODIUM CHLORIDE 0.9% 250 ML IV SCH (03:07)
[2023-04-24] MEDS: SODIUM CHLORIDE 0.9% 1,000 ML IV SCH (05:49)
[2023-04-24 06:00] LABS: Glucose,Whole Blood 182 mg/dL (70-110)
[2023-04-24] MEDS: INSULIN ASPART (NovoLOG) 100 UNIT/ML VIAL SQ SCH ×2 (06:40→12:14)
[2023-04-24] MEDS ORDERED: INSULIN DETEMIR (LEVEMIR) 100 UNIT/ML SYR SQ SCH (07:00)
[2023-04-24 07:25] LABS: INR 2.4 (<1.2); Prothrombin Time 23.1 sec (9.0-12.0)
[2023-04-24 07:46] LABS: African American GFR (CKD) >90 (>60 ml/min/1.73 sqM); Anion Gap 6 mmol/L; Blood Urea Nitrogen 25 mg/dL (9-20); Calcium 9.2 mg/dL (8.4-10.2); Carbon Dioxide 37 mmol/L (22-30); Chloride 84 mmol/L (98-107); Glucose 173 mg/dL (74-99); Magnesium 1.2 mg/dL (1.6-2.3); Non-African American GFR(CKD) 86 (>60 ml/min/1.73 sqM); Phosphorus 3.7 mg/dL (2.5-4.5); Potassium 3.3 mmol/L (3.5-5.1); Sodium 127 mmol/L (137-145)
[2023-04-24] MEDS ORDERED: Magnesium Replacement Protocol 1 EACH MISC MISCELLANE PRN (08:01)
[2023-04-24] MEDS ORDERED: Potassium Replacement Protocol 1 EACH MISC MISCELLANE PRN (08:03)
[2023-04-24] MEDS: MAGNESIUM SULFATE-D5W PMX 1 GM in DEXTROSE/WATER 1 100ML.BAG IVPB SCH ×4 (08:40→13:52)
[2023-04-24] MEDS: FUROSEMIDE 40 MG TAB PO SCH ×2 (08:42→15:36)
[2023-04-24] MEDS: metOLazone 5 MG TAB PO SCH (08:42)
[2023-04-24] MEDS: POTASSIUM CHLORIDE ER 20 MEQ TAB.ER PO SCH ×2 (08:42→12:13)
[2023-04-24] MEDS: PANTOPRAZOLE 40 MG/10 ML VIAL IVP SCH (08:42)
[2023-04-24] MEDS: METOPROLOL TARTRATE 25 MG TAB PO SCH (08:42)
[2023-04-24] MEDS: IPRATROPIUM-ALBUTEROL 3 ML NEB INHALATION SCH ×3 (08:48→14:51)
[2023-04-24 11:37] LABS: Glucose,Whole Blood 365 mg/dL (70-110)
[2023-04-24 14:16] VITALS: TEMP 98.4
[2023-04-24 14:59] LABS: Magnesium 1.9 mg/dL (1.6-2.3); Potassium 3.7 mmol/L (3.5-5.1)
[2023-04-24 15:37] VITALS: BP 123/74; PULSE 68; RESP 17
[2023-04-24] MEDS ORDERED: WARFARIN 5 MG TAB PO ONE (18:00)
--- NOTE | 2023-04-26 10:00 | CDI ---
Documentation Clarification Form Date: 04/26/23 From: Elvia Crain Admit Date: 04/15/2023 06:03:00 AM Patient Name: Oziel Cole Visit Number: [id number] Discharge Date: 04/24/2023 04:19:00 PM ATTENTION: The Clinical Documentation Specialists (CDI) and [facility] Coding Staff appreciate your assistance in clarifying documentation. Please respond to the clarification below the line at the bottom and electronically sign. The CDI & [facility] Coding staff will review the response and follow-up if needed. Please note: Queries are made part of the Legal Health Record. If you have any questions, please contact the author of this message via ITS. Dr. Gibson Melvin, Cardiac arrest is documented in H&P, Dr. Lala consult, PNs, Dr. Bogoie consult and discharge summary. Please clarify cause of the cardiac arrest. History/Risk Factors: HTH w acute on chronic systolic CHF, chronic persistent atrial fibrillation, T2DM, old [place], obesity w BMI 33.3 Clinical Indicators: Patient is found to be inheart failure subsequently had acardiac arrestwas down for 2 minutes withpulseless electrical activitywas successfullyresuscitatedpresently on a norepinephrine. Patient is on ventilatory support assist-control ventilation be for 5 patient does have brainstem reflexes patient is sedated at this time with propofol patient has wide complexrhythmwith underlyingatrial fibrillationpatient has chronicA. fibdoes use anti-correlation at home with history ofcoronary artery diseaseandcongestive heart failurehistory. Treatment: CPR, vasopressor, intubation and mechanical ventilation, IV Lasix Please clarify the relationship, if any, which is clinically appropriate for this patient: [ X] Cardiac arrest is due to acute & chronic systolic CHF [ ] Cardiac arrest is due to acute hypoxic respiratory failure [ ] Other explanation of clinical findings (please specify) [ ] Unable to determine (no explanation for clinical findings) MTDD
== END 2023-04-24 16:19 | DRG 280 ==
LOC: EC 23:12 → 3SCARD 04-15 06:03 → 2SICU 04-15 08:37 → 3SCARD 04-19 22:19
PROVIDERS: ADMIT Family Medicine; ATTEND Family Medicine
PROC: 0D9670Z Drainage of Stomach with Drainage Device, Via Natural or Artificial Opening (ICD-10-PCS; principal; 2023-04-15)
PROC: 5A1945Z Respiratory Ventilation, 24-96 Consecutive Hours (ICD-10-PCS; principal; 2023-04-15)
PROC: 5A12012 Performance of Cardiac Output, Single, Manual (ICD-10-PCS; principal; 2023-04-15)
PROC: 0BH17EZ Insertion of Endotracheal Airway into Trachea, Via Natural or Artificial Opening (ICD-10-PCS; 2023-04-15)
PROC: 4A133B1 Monitoring of Arterial Pressure, Peripheral, Percutaneous Approach (ICD-10-PCS; 2023-04-15)
PROC: 03HY32Z Insertion of Monitoring Device into Upper Artery, Percutaneous Approach (ICD-10-PCS; 2023-04-15)
PROC: 4A133J1 Monitoring of Arterial Pulse, Peripheral, Percutaneous Approach (ICD-10-PCS; 2023-04-15)
PROC: 02HV33Z Insertion of Infusion Device into Superior Vena Cava, Percutaneous Approach (ICD-10-PCS; 2023-04-15)
PROC: 3E043XZ Introduction of Vasopressor into Central Vein, Percutaneous Approach (ICD-10-PCS; 2023-04-15)
PROC: 3E0G76Z Introduction of Nutritional Substance into Upper GI, Via Natural or Artificial Opening (ICD-10-PCS; 2023-04-15)
DX: I11.0 Hypertensive heart disease with heart failure (principal); I21.A1 Myocardial infarction type 2; G92.8 Other toxic encephalopathy; I50.23 Acute on chronic systolic (congestive) heart failure; I46.2 Cardiac arrest due to underlying cardiac condition; J96.01 Acute respiratory failure with hypoxia; J69.0 Pneumonitis due to inhalation of food and vomit; E87.20 Acidosis, unspecified; I48.19 Other persistent atrial fibrillation; E87.1 Hypo-osmolality and hyponatremia; I95.9 Hypotension, unspecified; E11.9 Type 2 diabetes mellitus without complications; Z79.4 Long term (current) use of insulin; Z20.822 Contact with and (suspected) exposure to COVID-19; I25.5 Ischemic cardiomyopathy; I25.10 Atherosclerotic heart disease of native coronary artery without angina pectoris; I08.1 Rheumatic disorders of both mitral and tricuspid valves; T41.295A Adverse effect of other general anesthetics, initial encounter; E87.6 Hypokalemia; I25.2 Old myocardial infarction; E66.9 Obesity, unspecified; Z68.35 Body mass index [BMI] 35.0-35.9, adult; M19.90 Unspecified osteoarthritis, unspecified site; Z79.84 Long term (current) use of oral hypoglycemic drugs; Z79.01 Long term (current) use of anticoagulants; Z79.899 Other long term (current) drug therapy; Z96.652 Presence of left artificial knee joint; Z71.3 Dietary counseling and surveillance; Y92.230 Patient room in hospital as the place of occurrence of the external cause; Z82.49 Family history of ischemic heart disease and other diseases of the circulatory system
CPT/HCPCS: 36415; 36600; 70450; 71045; 71046; 71275; 80048; 80053; 81003; 82140; 82310; 82805; 83036; 83605; 83735; 83880; 84100; 84132; 84484; 85025; 85027; 85610; 85730; 87040; 87070; 87205; 87635; 92950; 93005; 93306; 94002; 94003; 94640; 94760; 96361; 96365; 99285

== ENCOUNTER 2023-05-12 07:25 | Emergency (ER) | payer MEDICARE ==
[2023-05-12 07:34] VITALS: RESP 16; TEMP 98.8
[2023-05-12] MEDS ORDERED: SODIUM CHLORIDE 0.9% 1,000 ML IV ONE (08:11)
--- NOTE | 2023-05-12 08:11 | ED ---
Fall HPI - General Chief Complaint: Fall Stated Complaint: Fall Time Seen by Provider: 05/12/23 07:30 Source: EMS Mode of arrival: EMS - History of Present Illness Initial Comments: 82-year-old male who presents to the emergency department after he sustained a fall. Reports that he was at home when his left knee gave out on him and he fell to the ground. He did hit his head but denies losing consciousness. He does take Coumadin for A. fib. Denies any headaches or visual changes. No reported confusion. He does report to left knee pain. He was able to ambulate after the fall and got himself back on his feet with the assistance of his . did call EMS. Patient recently had left knee replacement however did have dehiscence of his wound. Reports to me that Dr. Gleason was his surgeon and is going to do a revision surgery next week. He does admit to some mild drainage. Denies any increase in drainage since the fall. No bleeding. No other alleviating, precipitating or modifying factors - Related Data Home Medications Medication Instructions Recorded Confirmed Warfarin Sodium [Jantoven] 5 mg PO DAILY 01/28/22 04/16/23 Omeprazole 40 mg PO DAILY 04/15/23 04/15/23 Tamsulosin [Flomax] 0.4 mg PO BID 04/15/23 04/15/23 Previous Rx's Medication Instructions Recorded Acetaminophen Tab [Tylenol] 500 mg PO Q6HR PRN tab 04/23/23 Benzocaine/Menthol Lozeng [Cepacol 1 each MUCOUS MEM Q1H PRN lozenge 04/23/23 lozenge] Furosemide [Lasix] 40 mg PO BID@0900,1600 tab 04/23/23 INSULIN LISPRO (HumaLOG) [humaLOG] 0 unit SQ ACHS #10 ml 04/23/23 Insulin Detemir (Levemir) [Levemir] 30 unit SQ DAILY@0700 each 04/23/23 Ipratropium-Albuterol Nebulize 3 ml INHALATION Q4H PRN each 04/23/23 [Duoneb 0.5 mg-3 mg/3 ml Soln] Ipratropium-Albuterol Nebulize 3 ml INHALATION RT-QID each 04/23/23 [Duoneb 0.5 mg-3 mg/3 ml Soln] Metoprolol Tartrate [Lopressor] 25 mg PO BID tab 04/23/23 metOLazone [Zaroxolyn] 5 mg PO DAILY tab 04/23/23 Magnesium Oxide [Magox 400] 400 mg PO BID #60 tablet 04/24/23 Potassium Chloride ER [K-Dur 20] 20 meq PO BID #60 tab 04/24/23 Allergies Allergy/AdvReac Type Severity Reaction Status Date / Time No Known Allergies Allergy Verified 01/28/22 16:18 Review of Systems ROS Statement: Those systems with pertinent positive or pertinent negative responses have been documented in the HPI. ROS Other: All systems not noted in ROS Statement are negative. Past Medical History Past Medical History: Atrial Fibrillation, Diabetes Mellitus, Hypertension Additional Past Medical History / Comment(s): cervical fx. History of Any Multi-Drug Resistant Organisms: None Reported Past Surgical History: Appendectomy Additional Past Surgical History / Comment(s): 2009 RUSSEL/cardioversion, colonoscopy, L knee arthroscopy. Past Anesthesia/Blood Transfusion Reactions: No Reported Reaction Past Psychological History: No Psychological Hx Reported Smoking Status: Never smoker Past Alcohol Use History: None Reported Past Drug Use History: None Reported - Past Family History Mother Family Medical History: Cancer Additional Family Medical History / Comment(s): Mother had metastatic cancer. She at the age of 57yrs. Father Family Medical History: Myocardial Infarction (NH) Additional Family Medical History / Comment(s): Father at the age of 63yrs of a NH. General Exam General appearance: alert, in no apparent distress Head exam: Present: normocephalic, other (abrasion right forehead) Eye exam: Present: normal appearance, PERRL, EOMI. Absent: scleral icterus, conjunctival injection, periorbital swelling ENT exam: Present: normal exam, mucous membranes moist Neck exam: Present: normal inspection. Absent: tenderness, meningismus, lymphadenopathy Respiratory exam: Present: normal lung sounds bilaterally. Absent: respiratory distress, wheezes, rales, rhonchi, stridor Cardiovascular Exam: Present: normal rhythm, bradycardia, normal heart sounds. Absent: systolic murmur, diastolic murmur, rubs, gallop, clicks GI/Abdominal exam: Present: soft, normal bowel sounds. Absent: distended, tenderness, guarding, rebound, rigid Extremities exam: Present: tenderness, normal capillary refill, joint swelling (right knee. dehiscence of anterior midline inscision with eschar in the middle. no active redness or drainage. no warmth). Absent: pedal edema, calf tenderness Back exam: Present: normal inspection Neurological exam: Present: alert, oriented X3, CN II-XII intact Psychiatric exam: Present: normal affect, normal mood Skin exam: Present: warm, dry, intact, normal color. Absent: rash Course Vital Signs 05/12/23 05/12/23 05/12/23 07:28 07:49 09:34 Temperature 98.8 F Pulse Rate 51 L 60 64 Respiratory 16 16 16 Rate Blood Pressure 97/53 91/65 115/80 O2 Sat by Pulse 95 98 98 Oximetry 05/12/23 10:16 Temperature Pulse Rate 70 Respiratory 16 Rate Blood Pressure 100/70 O2 Sat by Pulse 98 Oximetry Medical Decision Making - Medical Decision Making Was pt. sent in by a medical professional or institution (, PA, MAGNETOMETER OPERATOR, urgent care, hospital, or halfway...) When possible be specific @ -No Did you speak to anyone other than the patient for history (EMS, parent, family, police, friend...)? What history was obtained from this source @ -EMS Did you review nursing and triage notes (agree or disagree)? Why? @ -I reviewed and agree with nursing and triage notes Were old charts reviewed (outside hosp., previous admission, EMS record, old EKG, old radiological studies, urgent care reports/EKG's, halfway records)? Report findings @ -No old charts were reviewed Differential Diagnosis (chest pain, altered mental status, abdominal pain women, abdominal pain men, vaginal bleeding, weakness, fever, dyspnea, syncope, headache, dizziness, GI bleed, back pain, seizure, CVA, palpatations, mental health, musculoskeletal)? @ -fracture, strain, sprain, broken hardware, wound dehiscence, blunt head injury EKG interpreted by me (3pts min.). @ -Not done X-rays interpreted by me (1pt min.). @ -yes, no acute fracture CT interpreted by me (1pt min.). @ -yes, no bleed U/S interpreted by me (1pt. min.). @ -None done What testing was considered but not performed or refused? (CT, X-rays, U/S, labs)? Why? @ -None What meds were considered but not given or refused? Why? @ -None Did you discuss the management of the patient with other professionals (professionals i.e. , KELLIE, MAGNETOMETER OPERATOR, lab, RT, psych nurse, geriatric social work professor, rn neurology, teacher, animal park code enforcement officer, piano case maker)? Give summary @ -No Was smoking cessation discussed for >3mins.? @ -No Was critical care preformed (if so, how long)? @ -No Were there social determinants of health that impacted care today? How? (Homelessness, low income, unemployed, alcoholism, drug addiction, transportation, low edu. Level, literacy, decrease access to med. care, [facility], rehab)? @ -No Was there de-escalation of care discussed even if they declined (Discuss DNR or withdrawal of care, Hospice)? DNR status @ -No What co-morbidities impacted this encounter? (DM, HTN, Smoking, COPD, CAD, Cancer, CVA, ARF, Chemo, Hep., AIDS, mental health diagnosis, sleep apnea, morb id obesity)? @ -Hx oa with knee replacement Was patient admitted / discharged? Hospital course, mention meds given and route, prescriptions, significant lab abnormalities, going to OR and other pertinent info. @ -Upon arrival patient is placed into room 7. There are history of physical exam is performed. IV access is established and laboratories is conducted. Patient is a CT of his head and neck due to his fall with visible head injury. CT does not demonstrate any intracranial bleeding. No skull fractures. Laboratory studies reveal a sodium of 129. INR 3.8. Patient is instructed to not take his Coumadin tonight. Results of the laboratory studies are discussed with the patient. He is eager to go home at this time. We are able to get up and ambulate the patient. Left leg is wrapped. He must call Dr. Gleason and notify him of his fall. Return for any new or worsening symptoms. Patient agreeable to the plan and was discharged in stable condition Undiagnosed new problem with uncertain prognosis? @ -No Drug Therapy requiring intensive monitoring for toxicity (Heparin, Nitro, Insulin, Cardizem)? @ -No Were any procedures done? @ -No Diagnosis/symptom? @ -acute fall, blunt head trauma on anticoagulation, supratheraputic inr, left knee pain Acute, or Chronic, or Acute on Chronic? @ -acute Uncomplicated (without systemic symptoms) or Complicated (systemic symptoms)? @ -complicated Side effects of treatment? @ -No Exacerbation, Progression, or Severe Exacerbation? @ -No Poses a threat to life or bodily function? How? (Chest pain, [place], NH, pneumonia, PE, COPD, DKA, ARF, appy, cholecystitis, CVA, Diverticulitis, Homicidal, Suicidal, threat to staff... and all critical care pts) @ -No - Lab Data Result diagrams: 05/12/23 08:18 05/12/23 08:18 Lab Results 05/12/23 05/12/23 05/12/23 Range/Units 08:18 08:18 08:18 WBC 11.0 H (3.8-10.6) k/uL RBC 4.67 (4.30-5.90) m/uL Hgb 9.6 L (13.0-17.5) gm/dL Hct 32.0 L (39.0-53.0) % MCV 68.6 L (80.0-100.0) fL MCH 20.6 L (25.0-35.0) pg MCHC 30.0 L (31.0-37.0) g/dL RDW 19.0 H (11.5-15.5) % Plt Count 228 (150-450) k/uL MPV 8.4 Neutrophils % 82 % Lymphocytes % 9 % Monocytes % 7 % Eosinophils % 0 % Basophils % 0 % Neutrophils # 9.0 H (1.3-7.7) k/uL Lymphocytes # 1.0 (1.0-4.8) k/uL Monocytes # 0.8 (0-1.0) k/uL Eosinophils # 0.0 (0-0.7) k/uL Basophils # 0.0 (0-0.2) k/uL Hypochromasia Marked Poikilocytosis Slight Anisocytosis Slight Microcytosis Marked PT 37.3 H (9.0-12.0) sec INR 3.8 H (<1.2) APTT 31.8 H (22.0-30.0) sec Sodium 129 L (137-145) mmol/L Potassium 4.2 (3.5-5.1) mmol/L Chloride 93 L (98-107) mmol/L Carbon Dioxide 28 (22-30) mmol/L Anion Gap 8 mmol/L BUN 37 H (9-20) mg/dL Creatinine 0.87 (0.66-1.25) mg/dL Est GFR (CKD-EPI)AfAm >90 (>60 ml/min/1.73 sqM) Est GFR (CKD-EPI)NonAf 80 (>60 ml/min/1.73 sqM) Glucose 197 H (74-99) mg/dL Calcium 8.3 L (8.4-10.2) mg/dL Total Bilirubin 1.7 H (0.2-1.3) mg/dL AST 33 (17-59) U/L ALT 21 (4-49) U/L Alkaline Phosphatase 221 H (38-126) U/L Total Protein 6.4 (6.3-8.2) g/dL Albumin 3.1 L (3.5-5.0) g/dL Urine Color Urine Appearance (Clear) Urine pH (5.0-8.0) Ur Specific [place] (1.001-1.035) Urine Protein (Negative) Urine Glucose (UA) (Negative) Urine Ketones (Negative) Urine Blood (Negative) Urine Nitrite (Negative) Urine Bilirubin (Negative) Urine Urobilinogen (<2.0) mg/dL Ur Leukocyte Esterase (Negative) Urine RBC (0-5) /hpf Urine WBC (0-5) /hpf Ur Squamous Epith Cells (0-4) /hpf Urine Bacteria (None) /hpf Hyaline Casts (0-2) /lpf 05/12/23 Range/Units 08:18 WBC (3.8-10.6) k/uL RBC (4.30-5.90) m/uL Hgb (13.0-17.5) gm/dL Hct (39.0-53.0) % MCV (80.0-100.0) fL MCH (25.0-35.0) pg MCHC (31.0-37.0) g/dL RDW (11.5-15.5) % Plt Count (150-450) k/uL MPV Neutrophils % % Lymphocytes % % Monocytes % % Eosinophils % % Basophils % % Neutrophils # (1.3-7.7) k/uL Lymphocytes # (1.0-4.8) k/uL Monocytes # (0-1.0) k/uL Eosinophils # (0-0.7) k/uL Basophils # (0-0.2) k/uL Hypochromasia Poikilocytosis Anisocytosis Microcytosis PT (9.0-12.0) sec INR (<1.2) APTT (22.0-30.0) sec Sodium (137-145) mmol/L Potassium (3.5-5.1) mmol/L Chloride (98-107) mmol/L Carbon Dioxide (22-30) mmol/L Anion Gap mmol/L BUN (9-20) mg/dL Creatinine (0.66-1.25) mg/dL Est GFR (CKD-EPI)AfAm (>60 ml/min/1.73 sqM) Est GFR (CKD-EPI)NonAf (>60 ml/min/1.73 sqM) Glucose (74-99) mg/dL Calcium (8.4-10.2) mg/dL Total Bilirubin (0.2-1.3) mg/dL AST (17-59) U/L ALT (4-49) U/L Alkaline Phosphatase (38-126) U/L Total Protein (6.3-8.2) g/dL Albumin (3.5-5.0) g/dL Urine Color Yellow Urine Appearance Clear (Clear) Urine pH 7.0 (5.0-8.0) Ur Specific [place] 1.009 (1.001-1.035) Urine Protein Negative (Negative) Urine Glucose (UA) 4+ H (Negative) Urine Ketones Negative (Negative) Urine Blood Trace H (Negative) Urine Nitrite Negative (Negative) Urine Bilirubin Negative (Negative) Urine Urobilinogen <2.0 (<2.0) mg/dL Ur Leukocyte Esterase Trace H (Negative) Urine RBC 11 H (0-5) /hpf Urine WBC 2 (0-5) /hpf Ur Squamous Epith Cells 1 (0-4) /hpf Urine Bacteria Rare H (None) /hpf Hyaline Casts 1 (0-2) /lpf Disposition Clinical Impression: Fall, Left knee pain, Blunt head injury Disposition: HOME SELF-CARE Condition: Stable Instructions (If sedation given, give patient instructions): Fall Prevention (ED) Additional Instructions: Keep your knee wrapped. Ice the knee. Take Tylenol. Follow up with dr. gleason within 1 week. Do not take your Coumadin tonight but resume tomorrow and have your doctor follow your levels closely. Return for any new or worsening symptoms. Is patient prescribed a controlled substance at d/c from ED?: No Referrals: Gibson Melvin MD [Primary Care Provider] - 1-2 days Time of Disposition: 10:28
[2023-05-12 08:43] LABS: Anisocytosis Slight; Basophils % (A) 0 %; Eosinophils % (A) 0 %; HGB 9.6 gm/dL (13.0-17.5); Hypochromasia Marked; Lymphocytes % (A) 9 %; MCH 20.6 pg (25.0-35.0); MCV 68.6 fL (80.0-100.0); Mean Platelet Volume 8.4; Microcytosis Marked; Monocytes # (A) 0.8 k/uL (0-1.0); Monocytes % (A) 7 %; Neutrophils % (A) 82 %; Platelet Count 228 k/uL (150-450); Poikilocytosis Slight; RBC 4.67 m/uL (4.30-5.90)
[2023-05-12 08:52] LABS: INR 3.8 (<1.2); Partial Thromboplastin Time 31.8 sec (22.0-30.0); Prothrombin Time 37.3 sec (9.0-12.0)
[2023-05-12 08:55] LABS: Appearance,Urine Clear (Clear); Bacteria,Urine Rare /hpf; Bilirubin,Urine Negative (Negative); Blood,Urine Trace (Negative); Color,Urine Yellow; Glucose,Urine (UA) 4+ (Negative); Hyaline Casts,Urine 1 /lpf (0-2); Ketones,Urine Negative (Negative); Leukocyte Esterase,Urine Trace (Negative); Nitrite,Urine Negative (Negative); Protein,Urine Negative (Negative); RBC,Urine 11 /hpf (0-5); Specific Gravity,Urine 1.009 (1.001-1.035); Squamous Epithelial Cell,Urine 1 /hpf (0-4); Urobilinogen,Urine <2.0 mg/dL (<2.0); WBC,Urine 2 /hpf (0-5)
[2023-05-12 08:56] LABS: ALT 21 U/L (4-49); AST 33 U/L (17-59); African American GFR (CKD) >90 (>60 ml/min/1.73 sqM); Albumin 3.1 g/dL (3.5-5.0); Alkaline Phosphatase 221 U/L (38-126); Anion Gap 8 mmol/L; Blood Urea Nitrogen 37 mg/dL (9-20); Calcium 8.3 mg/dL (8.4-10.2); Carbon Dioxide 28 mmol/L (22-30); Chloride 93 mmol/L (98-107); Glucose 197 mg/dL (74-99); Non-African American GFR(CKD) 80 (>60 ml/min/1.73 sqM); Potassium 4.2 mmol/L (3.5-5.1); Sodium 129 mmol/L (137-145); Total Bilirubin 1.7 mg/dL (0.2-1.3); Total Protein 6.4 g/dL (6.3-8.2)
--- NOTE | 2023-05-12 08:56 | XR ---
EXAMINATION TYPE: XR knee complete LT DATE OF EXAM: 05/12/2023 COMPARISON: 04/15/2023 HISTORY: Fall, pain TECHNIQUE: 3 view left knee FINDINGS: Tibial femoral components are present. No acute fracture or dislocation is evident. Small j oint effusion is not excluded. Extensive vascular calcification is present. There may be some aneurys mal dilatation of the proximal popliteal vein. IMPRESSION: 1. No acute osseous abnormality left knee. 2. Small joint effusion may be present. 3. Extensive vascular calcification. 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
--- NOTE | 2023-05-12 09:14 | CT ---
EXAMINATION TYPE: CT brain cspine wo con DATE OF EXAM: 05/12/2023 COMPARISON: Head CT dated 04/16/2023 HISTORY: Head injury on coumadin CT DLP: 1573.7 mGycm Automated exposure control for dose reduction was used. TECHNIQUE: CT scan of the head and cervical spine are performed without contrast. FINDINGS: There is no acute intracranial hemorrhage, mass effect, or midline shift identified. The ventricles, basal cisterns and sulci over convexities are moderately to markedly enlarged consistent with modera te to marked atrophy. There is no mass effect or shift of the midline structures. There is mild ischemic white matter demyelination. The globes are intact and the visualized sinuses a re clear. Cervical spine is visualized in its entirety from C1 through upper thoracic levels and demonstrates s atisfactory alignment without evidence of acute fracture or dislocation. Prevertebral soft tissue ap pears within normal limits. The C1-C2 articulation is unremarkable. There is multilevel degenerativ e disc space narrowing greatest at the C5-6 and C6-7 levels. There is no bony encroachment of the cer vical canal. There is mild bony neural foraminal encroachment at the C5-6 neural foramina on the left and moderate to severe bony neural foraminal encroachment at the C4-5 level on the right. IMPRESSION: 1. There is no acute fracture or dislocation evident in the cervical spine. 2. No acute intracranial hemorrhage, mass effect, or midline shift is seen.
[2023-05-12 10:17] VITALS: BP 100/70; PULSE 70
== END 2023-05-12 10:57 | disposition home or self-care (01) ==
LOC: EC 07:25
DX: S00.81XA Abrasion of other part of head, initial encounter (principal); M25.562 Pain in left knee; I48.91 Unspecified atrial fibrillation; I10 Essential (primary) hypertension; E11.9 Type 2 diabetes mellitus without complications; Z79.01 Long term (current) use of anticoagulants; Z79.899 Other long term (current) drug therapy; W18.30XA Fall on same level, unspecified, initial encounter
CPT/HCPCS: 36415; 70450; 72125; 80053; 81001; 85025; 85610; 85730; 96360; 99285